=== PATIENT | female | born 1935 | race Caucasian/White ===

== ENCOUNTER 2017-02-22 15:01 | Inpatient (IN) | payer OTHER ==
--- NOTE | 2017-02-22 16:20 | PDOC ---
History of Present Illness <Tammy Tellez - Last Filed: 02/22/17 18:54> - General History Source: Patient Exam Limitations: No Limitations - History of Present Illness Initial Comments: 02/22/17 19:14 Patient is a 82 year old female with a pmhx of CHF who presents to the ED sent in by PCP for evaluation of heart failure. Patient was at her PCP office at a routine check up and her ECG showed Afib. Patient went into CHF exacerbation on Sunday and was diuresed at [facility] on Sunday. As per cardiology, the patient had an EF of 20% compared to EF of 50% in August. Pt also noted to be inrapid afib hat her doctors office to the 120s. the pt endorses feeling weakness, and endorse some chest pain earlier in the day that had resolved. pt denies any fever/chills, cough, leg edema, back pain, neck pain, headache <Juancarlos Kiran - Last Filed: 02/23/17 09:23> - General Chief Complaint: Congestive Heart Failure Stated Complaint: CONGESTIVE HEART FAILURE (PCP SENT) Time Seen by Provider: 02/22/17 15:33 Past History <Tammy Tellez - Last Filed: 02/22/17 18:54> - Past Medical History Anemia: Yes Asthma: Yes (BRONCHIAL) Cancer: No Cardiac Disorders: Yes (a-fIB) CVA: No COPD: Yes CHF: No Dementia: No Diabetes: No GI Disorders: Yes (IBS, PANCREAS CYSTS,) Disorders: No HTN: Yes Hypercholesterolemia: Yes Liver Disease: No Seizures: No Thyroid Disease: Yes (THYROID NODULES AND SHUTDOWN 2003) - Surgical History Abdominal Surgery: Yes (PARTIAL GASTRECTOMY) Appendectomy: No Cardiac Surgery: Yes (MV REPAIR, TRICUSPID VALVE REPAIR) Cholecystectomy: No Lung Surgery: No Neurologic Surgery: No Orthopedic Surgery: No - Immunization History Immunization Up to Date: Yes - Psycho/Social/Smoking Cessation Hx Anxiety: No Suicidal Ideation: No Smoking History: Never smoked Have you smoked in the past 12 months: No Information on smoking cessation initiated: No Hx Alcohol Use: No Drug/Substance Use Hx: No Substance Use Type: None Hx Substance Use Treatment: No <Juancarlos Kiran - Last Filed: 02/23/17 09:23> - Past Medical History Allergies/Adverse Reactions: Allergies Allergy/AdvReac Type Severity Reaction Status Date / Time levofloxacin [From Levaquin] Allergy Intermediate Hives Verified 02/22/17 15:15 shellfish derived Allergy Intermediate Hives Verified 02/22/17 15:15 Sulfa (Sulfonamide Allergy Intermediate Hives Verified 02/22/17 15:15 Antibiotics) Home Medications: Ambulatory Orders Albuterol Sulfate [Proair Hfa -] 2 inh PO BID 11/09/13 Cholecalciferol (Vitamin D3) [Vitamin D3] 1,000 unit PO DAILY 11/09/13 Fluticasone Propionate [Flovent Hfa] 110 mcg IH BID 11/09/13 Hypromellose 0.5% Opth Soln [Artificial Tears] 1 drop OU Q4H PRN #0 drops Apixaban [Eliquis] 5 mg PO BID 02/22/17 Cetirizine HCl [Zyrtec -] 10 mg PO DAILY 02/22/17 Levothyroxine [Synthroid -] 88 mcg PO ASDIR 02/22/17 Lipase/Protease/Amylase [Pancreaze Dr 2,600 Unit Cap] 1 each PO TIDCM 02/22/17 Metoprolol Succinate [Toprol Xl -] 50 mg PO BID 02/22/17 Rifaximin [Xifaxan] 550 mg PO BID 02/22/17 Acetaminophen [Tylenol -] 1,000 mg PO Q6H PRN 02/23/17 Loperamide HCl [Imodium -] 2 mg PO DAILY PRN 02/23/17 Review of Systems - Review of Systems Able to Perform ROS?: No Comments:: 02/22/17 19:15 CONSTITUTIONAL: No reported: Fever, Chills, Diaphoresis, Generalized Weakness, Malaise, Loss of Appetite HEENT: No reported: Rhinorrhea, Nasal Congestion, Throat Pain, Throat Swelling, Difficulty Swallowing, Mouth Swelling, Ear Pain, Eye Pain, Visual Changes CARDIOVASCULAR: No reported: Chest Pain, Syncope, Palpitations, Irregular Heart Rate, Lightheadedness, Peripheral Edema RESPIRATORY: +Shortness of Breath, SOB with Exertion, No reported: Cough, Orthopnea, Wheezing, Stridor, Hemoptysis GASTROINTESTINAL: No reported: Abdominal pain, Abdominal Distension, Nausea, Vomiting, Diarrhea, Constipation, Melena, Hematochezia GENITOURINARY: No reported: Dysuria, Frequency, Urgency, Hesitancy, Flank Pain, Genital Pain MUSCULOSKELETAL: No reported: Myalgia, Arthralgia, Joint Swelling, Back pain, Neck Pain SKIN: No reported: Rash, Itching, Pallor HEMEATOLOGIC/IMMUNOLOGIC: No reported: Easy Bleeding, Easy Bruising, Lymphadenopathy, Frequent infections ENDOCRINE: No reported: Unexplained Weight Gain, Unexplained Weight Loss, Heat Intolerance , Cold Intolerance NEUROLOGIC: No reported: Headache, Focal Weakness, Paresthesias, Vertigo, Lightheadedness, Unsteady Gait, Seizure, Mental Status Changes, Incontinence PSYCHIATRIC: No reported: Anxiety, Depression <Magno,Juancarlos - Last Filed: 02/23/17 09:23> *Physical Exam - Vital Signs Last Vital Signs Temp Pulse Resp BP Pulse Ox 98.6 F 112 H 20 118/55 100 02/22/17 15:16 02/22/17 15:16 02/22/17 15:16 02/22/17 15:16 02/22/17 15:16 <Tammy Tellez - Last Filed: 02/22/17 18:54> - Vital Signs Last Vital Signs Temp Pulse Resp BP Pulse Ox 98.6 F 112 H 20 118/55 100 02/22/17 15:16 02/22/17 15:16 02/22/17 15:16 02/22/17 15:16 02/22/17 15:16 - Physical Exam Comments: 02/22/17 19:16 GENERAL: The patient is awake, alert, and fully oriented, Nontoxic - in no acute distress. HEAD: Normocephalic, atraumatic. EYES: extraocular movements intact, sclera anicteric, conjunctiva clear. ENT: Normal voice, Moist mucous membranes. NECK: Normal range of motion, supple LUNGS: scant rales b/l HEART: irregularly irregular ABDOMEN: Soft, nontender, normoactive bowel sounds. No guarding, no rebound. . No CVA tenderness EXTREMITIES: Normal range of motion, no edema. No clubbing or cyanosis. No cords, erythema, or tenderness. NEUROLOGICAL: No facial assymetry, Normal speech, PSYCH: Normal mood, normal affect. SKIN: Warm, Dry, normal turgor, <Magno,Juancarlos - Last Filed: 02/23/17 09:23> Heart Score/ECG Review - ECG Impressions Comment:: 02/22/17 19:14 Twelve-lead EKG was performed and reviewed by me. Irregularily irregaular with pvcs left axis devatiion incomplege rbbb abnormal r wave progression <Juancarlos Kiran - Last Filed: 02/23/17 09:23> ED Treatment Course - LABORATORY CBC & Chemistry Diagram: 02/22/17 16:41 02/22/17 16:41 - ADDITIONAL ORDERS Additional order review: Laboratory Results 02/22/17 02/22/17 16:41 16:30 VBG pH 7.44 H POC VBG pCO2 36.1 L POC VBG pO2 55.7 H Mixed VBG HCO3 24.3 Sodium 139 Potassium 3.8 Chloride 103 Carbon Dioxide 25 Anion Gap 11 BUN 36 H D Creatinine 1.2 H Creat Clearance w eGFR 43.01 Random Glucose 105 D Calcium 9.5 Total Bilirubin 0.4 AST 35 D ALT 38 Alkaline Phosphatase 69 D Creatine Kinase 116 Troponin I 0.02 B-Natriuretic Peptide 4692.11 H Total Protein 7.2 Albumin 3.5 TSH 3.26 02/22/17 16:41 RBC 4.17 MCV 91.4 MCHC 33.7 RDW 13.6 D MPV 8.2 Neutrophils % 66.5 D Lymphocytes % 20.3 D Monocytes % 10.0 D Eosinophils % 2.6 D Basophils % 0.6 D - Medications Given in the ED: ED Medications Discontinued Medications Generic Name Dose Route Start Last Admin Trade Name Freq PRN Reason Stop Dose Admin Furosemide 40 mg 02/22/17 17:13 02/22/17 17:20 Lasix Injection - IVPB 02/22/17 17:14 40 mg ONCE ONE Administration Potassium Chloride 40 meq 02/22/17 17:42 02/22/17 18:29 K-Dur - PO 02/22/17 17:43 40 meq ONCE ONE Administration <Tammy Tellez - Last Filed: 02/22/17 18:54> - LABORATORY CBC & Chemistry Diagram: 02/22/17 16:41 02/23/17 05:58 <Juancarlos Kiran - Last Filed: 02/23/17 09:23> Medical Decision Making - Medical Decision Making 02/22/17 18:[address] Domínguez who accepted patient admission under Dr. Rocha' s service. <Tammy Tellez - Last Filed: 02/22/17 18:54> - Medical Decision Making 02/22/17 18:41 pt sent to the ED for evaluation of afib with rvr and worsening CHF with EF of 20% pt without complaints currently but did endorse complaitn of chest pain earlier today pts exam without acute findings pt evaluated by dr. van in ED requests admission for further managment of chf and afib case dw dr. clancy agree with admission to tele under dr kline service Case discussed in detail with admitting physician including history, physical exam and ancillary studies. Admitting physician has assumed care for the patient, will follow all pending diagnostics and will complete the evaluation and treatment. A portion of this note was documented by katia avila under my direction. I have reviewed the details of the note, within reason, and agree with the documentation with the following case summary and management plan written by me <Juancarlos Kiran - Last Filed: 02/23/17 09:23> *DC/Admit/Observation/Transfer <Tammy Tellez - Last Filed: 02/22/17 18:54> - Discharge Dispostion Admit: Yes <Juancarlos Kiran - Last Filed: 02/23/17 09:23> Diagnosis at time of Disposition: CHF (congestive heart failure) Qualifiers: Congestive heart failure type: unspecified congestive heart failure type Congestive heart failure chronicity: acute Qualified Code(s): I50.9 - Heart failure, unspecified Atrial fibrillation Qualifiers: Atrial fibrillation type: chronic Qualified Code(s): I48.2 - Chronic atrial fibrillation - Discharge Dispostion Condition at time of disposition: Stable - Referrals
[2017-02-22 16:41] LABS: VENOUS BLOOD GAS HCO3 24.3 meq/L (19-25)
[2017-02-22 16:44] LABS: VENOUS PH 7.44 (7.32-7.42)
[2017-02-22 16:46] LABS: BASOPHIL 0.6 % (0-2.0); EOSINOPHIL 2.6 % (0-4.5); MCH 30.8 pg (25.7-33.7); MCHC 33.7 g/dl (32.0-36.0); MEAN CELL VOLUME 91.4 fl (80-96); MEAN PLT VOLUME 8.2 fl (7.5-11.1); NEUTROPHILS 66.5 % (42.8-82.8); PLATELET COUNT 193 K/MM3 (134-434); RDW 13.6 % (11.6-15.6); WHITE BLOOD COUNT 8.2 K/mm3 (4.0-10.0)
--- NOTE | 2017-02-22 16:48 | CON.CARD ---
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 Plan for initial rate-control and ultimately rhythm control with amiodarone oral load and PADMINI-mediated cardioversion. - History Source History Provided By: Patient Limitations to Obtaining History: No Limitations - Past Medical History Cardio/Vascular: Yes: HTN, Other (s/p MVR) Endocrine: Yes: Other (thyroid nodules) - Alcohol/Substance Use Hx Alcohol Use: No - Smoking History Smoking history: Never smoked Have you smoked in the past 12 months: No Home Medications - Allergies Allergies/Adverse Reactions: Allergies Allergy/AdvReac Type Severity Reaction Status Date / Time levofloxacin [From Levaquin] Allergy Intermediate Hives Verified 02/22/17 15:15 shellfish derived Allergy Intermediate Hives Verified 02/22/17 15:15 Sulfa (Sulfonamide Allergy Intermediate Hives Verified 02/22/17 15:15 Antibiotics) - Home Medications Home Medications: Ambulatory Orders Albuterol Sulfate [Proair Hfa -] 2 inh PO BID 11/09/13 Aspirin Coated [Ecotrin -] 81 mg PO DAILY 11/09/13 Cholecalciferol (Vitamin D3) [Vitamin D3] 1,000 unit PO DAILY 11/09/13 Esomeprazole Mag Trihydrate [Nexium] 40 mg PO DAILY 11/09/13 Fluticasone Propionate [Flovent Hfa] 110 mcg IH BID 11/09/13 Mometasone Furoate [Nasonex] 1 - 2 inh NS DAILY 11/09/13 Vitamin B Complex [B Complex] 1 each PO DAILY 11/09/13 Amlodipine Besylate [Norvasc -] 10 mg PO DAILY #0 tablet 11/24/13 Guaifenesin [Robitussin -] 10 ml PO TID #0 cup 11/24/13 Hydrochlorothiazide [Hctz -] 12.5 mg PO DAILY #0 cap 11/24/13 Hypromellose 0.5% Opth Soln [Artificial Tears] 1 drop OU Q4H PRN #0 drops Levothyroxine [Synthroid -] 88 mcg PO [id number]@0700 #0 tablet 11/24/13 Nebivolol [Bystolic -] 10 mg PO HS #0 tab 11/24/13 Review of Systems - Review of Systems Constitutional: reports: Other (Fatigue) Cardiovascular: reports: Palpitations, Shortness of Breath Vital Signs: Vital Signs Temperature 98.6 F 02/22/17 15:16 Pulse Rate 112 H 02/22/17 15:16 Respiratory Rate 20 02/22/17 15:16 Blood Pressure 118/55 02/22/17 15:16 O2 Sat by Pulse Oximetry (%) 100 02/22/17 15:16 Constitutional: Yes: No Distress, Calm Neck: Yes: Supple Respiratory: Yes: Regular, Diminished, On Nasal O2 Gastrointestinal: Yes: Normal Bowel Sounds, Soft Cardiovascular: Yes: Pulse Irregular JVD: No Carotid Bruit: No Heart Sounds: Yes: S1, S2 Murmur: Yes: Systolic Murmur, Grade 1 Edema: No - Other Data Afib @ 80 PVC Ejection Fraction %: LVEF < 40 % Imaging - Results Chest X-ray: Pending Problem List - Problems (1) Persistent atrial fibrillation Code(s): I48.1 - PERSISTENT ATRIAL FIBRILLATION (2) Acute on chronic systolic (congestive) heart failure Code(s): I50.23 - ACUTE ON CHRONIC SYSTOLIC (CONGESTIVE) HEART FAILURE (3) Cardiomyopathy Code(s): I42.9 - CARDIOMYOPATHY, UNSPECIFIED Qualifiers: Cardiomyopathy type: unspecified Qualified Code(s): I42.9 - Cardiomyopathy, unspecified (4) Hypertensive cardiomyopathy Code(s): I11.9 - HYPERTENSIVE HEART DISEASE WITHOUT HEART FAILURE I43 - CARDIOMYOPATHY IN DISEASES CLASSIFIED ELSEWHERE Qualifiers: Heart failure presence: with heart failure Qualified Code(s): I11.0 - Hypertensive heart disease with heart failure; I43 - Cardiomyopathy in diseases classified elsewhere (5) Hypothyroidism Code(s): E03.9 - HYPOTHYROIDISM, UNSPECIFIED Qualifiers: Hypothyroidism type: unspecified Qualified Code(s): E03.9 - Hypothyroidism, unspecified (6) Asthma Code(s): J45.909 - UNSPECIFIED ASTHMA, UNCOMPLICATED Qualifiers: Asthma severity: mild intermittent (7) S/P mitral valve repair Code(s): Z98.890 - OTHER SPECIFIED POSTPROCEDURAL STATES (8) S/P tricuspid valve repair Code(s): Z98.890 - OTHER SPECIFIED POSTPROCEDURAL STATES (9) Premature ventricular contraction Code(s): I49.3 - VENTRICULAR PREMATURE DEPOLARIZATION Assessment/Plan 1. Symptomatic persistent atrial fibrillation 2. Premature ventricular contraction 3. Newly diagnosed cardiomyopathy LVEF 25-30% suspect tachycardia-mediated with acute on chronic failure 4. HTN/HCVD 5. Hypothyroidism 6. Asthma P:1. Diuresis with monitor diuretic response, renal fxn and electrolytes 2. Continue Toprol XL 50 bid, start losartan 25 qd and Aldactone 25 qd with uptitration as tolerated, start oral amiodarone load 3. Started on Eliquis 5 bid, plan for PADMINI-mediated DCCV Sunday 4. Thank you for consultative opportunity
[2017-02-22 17:09] LABS: ALBUMIN 3.5 g/dl (3.4-5.0); ANION GAP 11 (8-16); BILIRUBIN,TOTAL 0.4 mg/dL (0.2-1.0); CALCIUM 9.5 mg/dL (8.5-10.1); CO2 25 mmol/L (21-32); CREATININE 1.2 mg/dL (0.55-1.02); GLUCOSE,RANDOM 105 mg/dL (74-106); SGPT/ALT 38 U/L (12-78); TOT PROT 7.2 g/dl (6.4-8.2)
[2017-02-22] MEDS: SPIRONOLACTONE 25 MG TABLET (FP) PO SCH (17:10)
[2017-02-22] MEDS ORDERED: FUROSEMIDE 40 MG/4 ML INJECTABLE VIAL IVPB ONE (17:13)
[2017-02-22 17:17] LABS: ALK PHOS 69 U/L (45-117); SGOT/AST 35 U/L (15-37); THYROID STIMULATING HORMONE 3.26 uIU/ml (0.358-3.74); TROPONIN I 0.02 ng/ml (0.00-0.05)
[2017-02-22] MEDS ORDERED: FUROSEMIDE 40 MG/4 ML INJECTABLE VIAL ONE (17:40)
[2017-02-22] MEDS ORDERED: POTASSIUM CHLORIDE TABS 20 MEQ TABLET.ER (FP) PO ONE ×2 (17:42→18:12)
[2017-02-22] MEDS: AMIODARONE HCL 200 MG TABLET (FP) PO SCH (21:42)
[2017-02-22] MEDS: APIXABAN 5 MG TABLET PO SCH (21:42)
[2017-02-22] MEDS: METOPROLOL SUCCINATE 50 MG TAB.SR.24H (FP) PO SCH (21:42)
[2017-02-22] MEDS: ACETAMINOPHEN 325 MG TABLET (FP) PO PRN (23:36)
[2017-02-23 00:33] VITALS: BMI 18.8
[2017-02-23] MEDS: LEVOTHYROXINE NA 88 MCG TABLET (FP) PO SCH (06:21)
[2017-02-23 07:48] LABS: ANION GAP 11 (8-16); CALCIUM 9.4 mg/dL (8.5-10.1); CO2 31 mmol/L (21-32); CREATININE 1.2 mg/dL (0.55-1.02); GLUCOSE,RANDOM 92 mg/dL (74-106); MAGNESIUM 1.8 mg/dL (1.8-2.4)
[2017-02-23 07:50] LABS: TROPONIN I < 0.02 ng/ml (0.00-0.05)
[2017-02-23] MEDS: AMIODARONE HCL 200 MG TABLET (FP) PO SCH ×2 (10:30→21:29)
[2017-02-23] MEDS: LOSARTAN POTASSIUM 25 MG TABLET PO SCH (10:31)
[2017-02-23] MEDS: SPIRONOLACTONE 25 MG TABLET (FP) PO SCH (10:31)
[2017-02-23] MEDS: METOPROLOL SUCCINATE 50 MG TAB.SR.24H (FP) PO SCH ×3 (10:31→21:29)
[2017-02-23] MEDS: APIXABAN 5 MG TABLET PO SCH ×2 (10:31→21:29)
--- NOTE | 2017-02-23 11:16 | PN ---
Progress Note, Physician History of Present Illness: Dyspnea improving with diuresis, still with rapid afib upon exertion. - Current Medication List Current Medications: Active Medications Acetaminophen (Tylenol -) 650 mg PO Q6H PRN PRN Reason: PAIN Last Admin: 02/22/17 23:36 Dose: 650 mg Albuterol Sulfate (Ventolin Hfa Inhaler -) 2 puff IH Q6HPO PRN PRN Reason: ASTHMA Amiodarone HCl (Cordarone -) 200 mg PO BID [facility] Last Admin: 02/23/17 10:30 Dose: 200 mg Apixaban (Eliquis -) 5 mg PO BID [facility] Last Admin: 02/23/17 10:31 Dose: 5 mg Levothyroxine Sodium (Synthroid -) 88 mcg PO DAILY@0700 [facility] Last Admin: 02/23/17 06:21 Dose: 88 mcg Losartan Potassium (Cozaar -) 25 mg PO DAILY [facility] Last Admin: 02/23/17 10:31 Dose: 25 mg Metoprolol Succinate (Toprol Xl -) 50 mg PO BID [facility] Last Admin: 02/23/17 10:31 Dose: 50 mg Spironolactone (Aldactone -) 25 mg PO DAILY [facility] Last Admin: 02/23/17 10:31 Dose: 25 mg - Objective Vital Signs: Vital Signs Temperature 97.9 F 02/23/17 10:00 Pulse Rate 91 H 02/23/17 10:00 Respiratory Rate 18 02/23/17 10:00 Blood Pressure 115/58 02/23/17 10:00 O2 Sat by Pulse Oximetry (%) 95 02/23/17 09:00 Constitutional: Yes: No Distress, Calm, Thin Neck: Yes: Supple Cardiovascular: Yes: Tachycardia, Pulse Irregular, Murmur (2/6 SM) Respiratory: Yes: Regular, Diminished Gastrointestinal: Yes: Normal Bowel Sounds, Soft Edema: No Labs: CBC, BMP 02/23/17 05:58 - ....Imaging EKG: Report Reviewed (Tele: Rapid afib) Problem List - Problems (1) Persistent atrial fibrillation Code(s): I48.1 - PERSISTENT ATRIAL FIBRILLATION (2) Acute on chronic systolic (congestive) heart failure Code(s): I50.23 - ACUTE ON CHRONIC SYSTOLIC (CONGESTIVE) HEART FAILURE (3) Cardiomyopathy Code(s): I42.9 - CARDIOMYOPATHY, UNSPECIFIED Qualifiers: Cardiomyopathy type: unspecified Qualified Code(s): I42.9 - Cardiomyopathy, unspecified (4) Hypertensive cardiomyopathy Code(s): I11.9 - HYPERTENSIVE HEART DISEASE WITHOUT HEART FAILURE I43 - CARDIOMYOPATHY IN DISEASES CLASSIFIED ELSEWHERE Qualifiers: Heart failure presence: with heart failure Qualified Code(s): I11.0 - Hypertensive heart disease with heart failure; I43 - Cardiomyopathy in diseases classified elsewhere (5) Hypothyroidism Code(s): E03.9 - HYPOTHYROIDISM, UNSPECIFIED Qualifiers: Hypothyroidism type: unspecified Qualified Code(s): E03.9 - Hypothyroidism, unspecified (6) Asthma Code(s): J45.909 - UNSPECIFIED ASTHMA, UNCOMPLICATED Qualifiers: Asthma severity: mild intermittent (7) S/P mitral valve repair Code(s): Z98.890 - OTHER SPECIFIED POSTPROCEDURAL STATES (8) S/P tricuspid valve repair Code(s): Z98.890 - OTHER SPECIFIED POSTPROCEDURAL STATES (9) Premature ventricular contraction Code(s): I49.3 - VENTRICULAR PREMATURE DEPOLARIZATION Assessment/Plan 1. Symptomatic persistent atrial fibrillation with rapid ventricular response 2. 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 Premature ventricular contraction 4. Newly diagnosed cardiomyopathy LVEF 25-30% suspect tachycardia-mediated with acute on chronic failure 4. HTN/HCVD 5. Hypothyroidism 6. Asthma P:1. Continue Aldactone 25 qd with monitor diuretic response, renal fxn and electrolytes 2. Increase Toprol XL 50 tid and losartan 25 qd with uptitration as tolerated, continue oral amiodarone load 3. Maintain on Eliquis 5 bid, plan for PADMINI-mediated DCCV Sunday
--- NOTE | 2017-02-23 13:17 | HP ---
Admitting History and Physical - Primary Care Physician PCP: Melissa Roberts - Admission Chief Complaint: The doctor told me to come in History of Present Illness: Mrs Duran is a very pleasant 81 year old female who comes in with shortness of breath. She says this began a few weeks ago. She started having dyspnea on exertion. She was seen by cardiology and was being worked up, however over the weekend she became acutely short of breath and presented to [facility]. There she was found to have fluid overload with pleural effusion. She was diuresed with IV lasix and improved. She did not require thoracentesis. She did not have an ECHO there. She was released and followed up with her PCP. She was found to be in atrial fibrillation and sent in for further evaluation. Currently she is feeling fine. She denies fevers, chills, lightheadedness, passing out, chest pain, nausea, vomiting, diarrhea, swelling, or any other concern. History Source: Patient Limitations to Obtaining History: No Limitations - Past Medical History Cardiovascular: Yes: HTN, Other (s/p MVR) Gastrointestinal: Yes: Irritable Bowel Disease ...: No Endocrine: Yes: Hypothyroidism, Other (thyroid nodules) - Past Surgical History Past Surgical History: Yes: None (Mitral valve repair) - Advance Directives Advance Directives: Yes: Health Care Proxy - Smoking History Smoking history: Never smoked Have you smoked in the past 12 months: No - Alcohol/Substance Use Hx Alcohol Use: No History of Substance Use: reports: None - Social History Usual Living Arrangement: Yes: With Spouse ADL: Independent History of Recent Travel: No Home Medications - Allergies Allergies/Adverse Reactions: Allergies Allergy/AdvReac Type Severity Reaction Status Date / Time levofloxacin [From Levaquin] Allergy Intermediate Hives Verified 02/22/17 15:15 shellfish derived Allergy Intermediate Hives Verified 02/22/17 15:15 Sulfa (Sulfonamide Allergy Intermediate Hives Verified 02/22/17 15:15 Antibiotics) - Home Medications Home Medications: Ambulatory Orders Albuterol Sulfate [Proair Hfa -] 2 inh PO BID 11/09/13 Cholecalciferol (Vitamin D3) [Vitamin D3] 1,000 unit PO DAILY 11/09/13 Fluticasone Propionate [Flovent Hfa] 110 mcg IH BID 11/09/13 Hypromellose 0.5% Opth Soln [Artificial Tears] 1 drop OU Q4H PRN #0 drops Apixaban [Eliquis] 5 mg PO BID 02/22/17 Cetirizine HCl [Zyrtec -] 10 mg PO DAILY 02/22/17 Levothyroxine [Synthroid -] 88 mcg PO ASDIR 02/22/17 Lipase/Protease/Amylase [Pancreolvin Dr 2,600 Unit Cap] 1 each PO TIDCM 02/22/17 Metoprolol Succinate [Toprol Xl -] 50 mg PO BID 02/22/17 Rifaximin [Xifaxan] 550 mg PO BID 02/22/17 Acetaminophen [Tylenol -] 1,000 mg PO Q6H PRN 02/23/17 Loperamide HCl [Imodium -] 2 mg PO DAILY PRN 02/23/17 Family Disease History - Family Disease History Family History: Unremarkable Review of Systems Findings/Remarks: Full review of systems obtained. As per HPI and otherwise negative Physical Examination Vital Signs: Vital Signs Temperature 97.9 F 02/23/17 10:00 Pulse Rate 91 H 02/23/17 10:00 Respiratory Rate 18 02/23/17 10:00 Blood Pressure 115/58 02/23/17 10:00 O2 Sat by Pulse Oximetry (%) 95 02/23/17 09:00 Constitutional: Yes: Well Nourished, No Distress, Calm Eyes: Yes: Conjunctiva Clear, EOM Intact, PERRL Cardiovascular: Yes: Tachycardia, Pulse Irregular. No: Gallop, Murmur, Rub Respiratory: Yes: Regular, CTA Bilaterally. No: Rales, Rhonchi, Wheezes Gastrointestinal: Yes: Normal Bowel Sounds, Soft. No: Distention, Tenderness Extremities: Yes: WNL Edema: No Labs: CBC, BMP 02/23/17 05:58 Imaging - Results Chest X-ray: Report Reviewed, Image Reviewed Problem List - Problems (1) Persistent atrial fibrillation Assessment/Plan: -patient presents with afib with rvr -case d/w cardiology -metoprolol increased -loading amiodarone -anticoagulation with eliquis -plan for PADMINI/DCCV on Sunday Code(s): I48.1 - PERSISTENT ATRIAL FIBRILLATION (2) CHF (congestive heart failure) Assessment/Plan: -continue aldactone Code(s): I50.9 - HEART FAILURE, UNSPECIFIED Qualifiers: Congestive heart failure type: unspecified congestive heart failure type Congestive heart failure chronicity: chronic Qualified Code(s): I50.9 - Heart failure, unspecified (3) Hypothyroidism Assessment/Plan: -continue synthroid Code(s): E03.9 - HYPOTHYROIDISM, UNSPECIFIED Qualifiers: Hypothyroidism type: unspecified Qualified Code(s): E03.9 - Hypothyroidism, unspecified (4) HTN (hypertension) Assessment/Plan: -continue cozaar and aldactone -toprol xl increased for rate control -well controlled Code(s): I10 - ESSENTIAL (PRIMARY) HYPERTENSION (5) S/P mitral valve repair Assessment/Plan: -cardiology following Code(s): Z98.890 - OTHER SPECIFIED POSTPROCEDURAL STATES (6) IBS (irritable bowel syndrome) Assessment/Plan: -continue rifaximin and prn imodium -continue pancreatic enzymes with meals Code(s): K58.9 - IRRITABLE BOWEL SYNDROME WITHOUT DIARRHEA
[2017-02-23] MEDS ORDERED: ARTIFICIAL TEARS (POLYVINYL ALCOHOL 1.4%) OPTH DROPS OU PRN (14:00)
[2017-02-23] MEDS: PROTEASE PO SCH (15:18)
[2017-02-23] MEDS: [UNRECOGNIZED DRUG - OTHER] PO SCH (15:18)
[2017-02-23] MEDS: AMYLASE PO SCH (15:18)
[2017-02-23] MEDS: LIPASE PO SCH (15:18)
--- NOTE | 2017-02-23 17:22 | EKG ---
Test Reason : Blood Pressure : / mmHG Vent. Rate : 080 BPM Atrial Rate : 357 BPM P-R Int : 000 ms QRS Dur : 100 ms QT Int : 384 ms P-R-T Axes : 000 -38 -53 degrees QTc Int : 442 ms ATRIAL FIBRILLATION WITH PREMATURE VENTRICULAR OR ABERRANTLY CONDUCTED COMPLEXES LEFT AXIS DEVIATION INCOMPLETE RIGHT BUNDLE BRANCH BLOCK MODERATE VOLTAGE CRITERIA FOR LVH, MAY BE NORMAL VARIANT ANTEROSEPTAL INFARCT , AGE UNDETERMINED ABNORMAL ECG WHEN COMPARED WITH ECG OF 18-NOV-2013 13:14, ATRIAL FIBRILLATION HAS REPLACED SINUS RHYTHM INCOMPLETE RIGHT BUNDLE BRANCH BLOCK IS NOW PRESENT ANTEROSEPTAL INFARCT IS NOW PRESENT Confirmed by MD DMITRIY, DEVORA ([id number]) on 02/23/2017 5:21:36 PM Referred By: Confirmed By:DEVORA IZAGUIRRE MD
[2017-02-23] MEDS ORDERED: PT OWN MED DRAWER 7, Y5N ONE (21:19)
[2017-02-23] MEDS: MOMETASONE FUROATE 220 MCG/IH INHALER IH SCH (21:29)
[2017-02-23] MEDS: ALBUTEROL SO4 6.7 GM HFA INHALER IH PRN (21:29)
[2017-02-23] MEDS: RIFAXIMIN 550 MG TABLET (UD) PO SCH (21:29)
[2017-02-23] MEDS: ACETAMINOPHEN 325 MG TABLET (FP) PO PRN (21:39)
[2017-02-24] MEDS: LEVOTHYROXINE NA 88 MCG TABLET (FP) PO SCH (06:26)
--- NOTE | 2017-02-24 06:58 | PN ---
Progress Note (short form) - Note Progress Note: Chief Complaint: Events noted, notes reviewed. denies any chest pain, dyspnea improved, atrial fibrillation persists with slow ventricular response during sleep History of Present Illness: Seen and examined on telemetry. Events noted, notes reviewed. denies any chest pain, dyspnea improved, atrial fibrillation persists with slow ventricular response during sleep Echocardiography performed revealed severe LV systolic dysfunction, Mitral annular ring with mild MR, Tricuspid annular ring with mild TR Continue Toprol XL and Amiodarone and plan to proceed with PADMINI guided cardioversion since duration of AF is not clear and A/C was initiated last week - Current Medication List Current Medications Acetaminophen (Tylenol -) 650 mg PO Q6H PRN PRN Reason: PAIN Last Admin: 02/23/17 21:39 Dose: 650 mg Albuterol Sulfate (Ventolin Hfa Inhaler -) 2 puff IH Q6HPO PRN PRN Reason: ASTHMA Last Admin: 02/23/17 21:29 Dose: 2 puff Amiodarone HCl (Cordarone -) 200 mg PO BID [facility] Last Admin: 02/23/17 21:29 Dose: 200 mg Apixaban (Eliquis -) 5 mg PO BID [facility] Last Admin: 02/23/17 21:29 Dose: 5 mg Artificial Tears (Artificial Tears) 1 drop OU Q4H PRN PRN Reason: DRY EYES Last Admin: 02/23/17 21:39 Dose: 1 drop Cholecalciferol (Vitamin D3 -) 1,000 unit PO DAILY [facility] Levothyroxine Sodium (Synthroid -) 88 mcg PO DAILY@0700 [facility] Last Admin: 02/24/17 06:26 Dose: 88 mcg Loperamide HCl (Imodium -) 2 mg PO DAILY PRN PRN Reason: DIARRHEA Loratadine (Claritin -) 10 mg PO DAILY [facility] Losartan Potassium (Cozaar -) 25 mg PO DAILY [facility] Last Admin: 02/23/17 10:31 Dose: 25 mg Metoprolol Succinate (Toprol Xl -) 50 mg PO TID [facility] Last Admin: 02/23/17 21:29 Dose: 50 mg Mometasone Furoate (Asmanex 220mcg -) 1 puff IH HS [facility] Last Admin: 02/23/17 21:29 Dose: 1 puff Non-Formulary Medication (Lipase/Protease/Amylase [Pancreaze Dr 2,600 Unit Cap] ) 1 each PO TIDCM [facility] Rifaximin (Xifaxan -) 550 mg PO BID [facility] Last Admin: 02/23/17 21:29 Dose: 550 mg Spironolactone (Aldactone -) 25 mg PO DAILY [facility] Last Admin: 02/23/17 10:31 Dose: 25 mg Review of Systems Cardiovascular: As noted above Respiratory: denies: Cough or Sputum Production Gastrointestinal: denies: Nausea, Vomiting, Diarrhea, Constipation or Abdominal Discomfort Musculoskeletal: No Symptoms Reported Endocrine: No Symptoms Reported - Objective Vital Signs: Last Vital Signs Temp Pulse Resp BP Pulse Ox 97.9 F 58 L 18 106/60 96 02/24/17 06:00 02/24/17 06:00 02/24/17 06:00 02/24/17 06:00 02/23/17 22:00 Constitutional: No Distress, Calm, Thin Neck: Supple Negative JVD Cardiovascular: S1 S2 Irregularly Irregular Grade 2/6 Murmur Respiratory: Diminished at the Bases Gastrointestinal: Soft Benign Normal Bowel Sounds Ext: No Edema Labs: Troponin, BNP 02/23/17 05:58 Troponin I < 0.02 Hepatic Panel Total Bilirubin 0.4 mg/dL (0.2-1.0) 02/22/17 16:41 AST 35 U/L (15-37) D 02/22/17 16:41 ALT 38 U/L (12-78) 02/22/17 16:41 Alkaline Phosphatase 69 U/L (45-117) D 02/22/17 16:41 Albumin 3.5 g/dl (3.4-5.0) 02/22/17 16:41 Assessment/Plan ASSESSMENT: 1. Persistent atrial fibrillation with rapid ventricular response, duration of which is unclear [id number] score of 5 on NOAC's 2. 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 HTN 5. Hypothyroidism 6. Asthma PLAN: 1. Continue Aldactone with close monitoring of renal function 2. Continue Toprol XL 3. Continue Losartan 4. Continue Amiodarone 5. Continue Eliquis considering the above noted [id number] score of 5 6. Plan for PADMINI guided DCCV Sunday, discussed in detail with the patient, risk, benefits and alternatives were reviewed Linh Barney M.D.
[2017-02-24] MEDS: METOPROLOL SUCCINATE 50 MG TAB.SR.24H (FP) PO SCH ×3 (07:30→21:42)
[2017-02-24 07:55] LABS: BASOPHIL 0.5 % (0-2.0); EOSINOPHIL 8.1 % (0-4.5); MCH 30.7 pg (25.7-33.7); MCHC 33.4 g/dl (32.0-36.0); MEAN CELL VOLUME 91.8 fl (80-96); MEAN PLT VOLUME 8.4 fl (7.5-11.1); NEUTROPHILS 52.2 % (42.8-82.8); PLATELET COUNT 212 K/MM3 (134-434); RDW 13.2 % (11.6-15.6); WHITE BLOOD COUNT 8.3 K/mm3 (4.0-10.0)
[2017-02-24] MEDS: LIPASE PO SCH ×3 (08:16→17:37)
[2017-02-24] MEDS: AMYLASE PO SCH ×3 (08:16→17:37)
[2017-02-24] MEDS: PROTEASE PO SCH ×3 (08:16→17:37)
[2017-02-24] MEDS: [UNRECOGNIZED DRUG - OTHER] PO SCH ×3 (08:16→17:37)
[2017-02-24 08:20] LABS: ALBUMIN 3.7 g/dl (3.4-5.0); ANION GAP 11 (8-16); CALCIUM 9.2 mg/dL (8.5-10.1); CO2 31 mmol/L (21-32); GLUCOSE,RANDOM 130 mg/dL (74-106); SGOT/AST 31 U/L (15-37)
[2017-02-24 08:23] LABS: ALK PHOS 77 U/L (45-117); BILIRUBIN,TOTAL 0.5 mg/dL (0.2-1.0); CREATININE 1.3 mg/dL (0.55-1.02); PHOSPHOROUS 3.6 mg/dL (2.5-4.9); SGPT/ALT 36 U/L (12-78); TOT PROT 7.7 g/dl (6.4-8.2)
[2017-02-24] MEDS ORDERED: PT OWN MED DRAWER 7, Y5N ONE ×4 (09:30→21:38)
--- NOTE | 2017-02-24 09:35 | PN ---
Progress Note (short form) - Note Progress Note: PATIENT ADMITTED WITH AFIB / RVR ,> HY OF MVP S/P MV REPAIR. SEEN BY CARDIOLOGY <> PLACED ON AMIODARONE <>TOPROL INCREASED FOR RATE CONTROL. Selected Entries 02/24/17 06:00 Temperature 97.9 F Pulse Rate 58 L Respiratory 18 Rate Blood Pressure 106/60 Weight 101 lb Laboratory Tests 02/23/17 02/24/17 02/24/17 05:58 06:40 06:40 WBC 8.3 RBC 4.38 Hgb 13.5 Hct 40.3 Plt Count 212 Sodium 135 L Potassium 4.2 Chloride 93 L Carbon Dioxide 31 Anion Gap 11 BUN 42 H Creatinine 1.3 H Random Glucose 130 H D Calcium 9.2 Phosphorus 3.6 Magnesium 2.0 Total Bilirubin 0.5 D AST 31 ALT 36 Alkaline Phosphatase 77 Creatine Kinase 110 Troponin I < 0.02 Total Protein 7.7 Albumin 3.7 P/E <> AWAKE / ALERT HEENT <> NECK SUPPLE / CAROTIDS 2 + COR <> S 1 S 2 NO M / NO GALLOPS CHEST <> FEW SCATTERED RHONCHI ABD <> SOFT / NONTENDER / NO HSM EXT <> NO CALF TENDERNESS/ IMP : AFIB RVR MVP / S/P MVR <> ANNULOPLASTY RING. HTN DILATED CARDIOMYOPATHY HYPOTHYROIDISM PLAN : PADMINI WITH CARDIOVERSION PER DR MCFARLAND. CONTINUE SAME CARDIAC MEDS. ELIQUIS FOR A/C CONTINUE CORDARONE CONTINUE TOPROL FOR RATE CONTROL .
[2017-02-24] MEDS: SPIRONOLACTONE 25 MG TABLET (FP) PO SCH (09:51)
[2017-02-24] MEDS: APIXABAN 5 MG TABLET PO SCH ×2 (09:53→21:42)
[2017-02-24] MEDS: RIFAXIMIN 550 MG TABLET (UD) PO SCH ×2 (09:53→21:42)
[2017-02-24] MEDS: LORATADINE 10 MG TABLET PO SCH (09:53)
[2017-02-24] MEDS: AMIODARONE HCL 200 MG TABLET (FP) PO SCH ×2 (09:53→21:42)
[2017-02-24] MEDS: CHOLECALCIFEROL (VITAMIN D3) 1,000 UNIT TABLET (FP) PO SCH (09:53)
[2017-02-24] MEDS: LOSARTAN POTASSIUM 25 MG TABLET PO SCH (09:53)
[2017-02-24] MEDS: ALBUTEROL SO4 6.7 GM HFA INHALER IH PRN (09:54)
[2017-02-24] MEDS: MOMETASONE FUROATE 220 MCG/IH INHALER IH SCH (21:44)
[2017-02-25] MEDS: METOPROLOL SUCCINATE 50 MG TAB.SR.24H (FP) PO SCH ×3 (06:04→21:46)
[2017-02-25] MEDS: LEVOTHYROXINE NA 88 MCG TABLET (FP) PO SCH (06:05)
--- NOTE | 2017-02-25 07:40 | PN ---
Progress Note (short form) - Note Progress Note: PATIENT CLAIMS SHE FEELS IMPROVED. SHE DENIES ANY CP / SOB / PALPITATIONS. HY OF AFIB WITH RVR . HR CONTROLLED WITH AMIODARONE & INCREASING DOSE OF TOPROL. Selected Entries Selected Entries 02/25/17 02/25/17 05:51 06:00 Temperature 97.9 F Pulse Rate 62 Respiratory 18 Rate Blood Pressure 121/49 Weight 101 lb Laboratory Tests 02/23/17 02/24/17 02/24/17 05:58 06:40 06:40 WBC 8.3 RBC 4.38 Hgb 13.5 Hct 40.3 Plt Count 212 Sodium 135 L Potassium 4.2 Chloride 93 L Carbon Dioxide 31 Anion Gap 11 BUN 42 H Creatinine 1.3 H Random Glucose 130 H D Calcium 9.2 Phosphorus 3.6 Magnesium 2.0 Total Bilirubin 0.5 D AST 31 ALT 36 Alkaline Phosphatase 77 Creatine Kinase 110 Troponin I < 0.02 Total Protein 7.7 Albumin 3.7 P/E <> AWAKE / ALERT / IN NO DISTRESS. HEENT <> NECK SUPPLE / CAROTIDS 2 + / NO BRUITS. COR <> S 1 S 2 NO M / NO GALLOPS / NO RUBS CHEST <> NO RHONCHI / NO CREPS. ABD <> SOFT / NONTENDER / NO HSM EXT <> NO CALF TENDERNESS/ IMP : AFIB RVR MVP / S/P MVR <> ANNULOPLASTY RING. HTN DILATED CARDIOMYOPATHY HYPOTHYROIDISM PLAN : CONTINUE SAME MEDS. FOLLOW LABS PENDING. PADMINI WITH CARDIOVERSION IN AM PER CARDIOLOGY.
--- NOTE | 2017-02-25 07:51 | PN ---
Progress Note (short form) - Note Progress Note: Chief Complaint: Events noted, notes reviewed. denies any chest pain, dyspnea resolved, atrial fibrillation persists rate controlled with slow ventricular response during sleep History of Present Illness: Seen and examined on telemetry. Events noted, notes reviewed. denies any chest pain, dyspnea resolved, atrial fibrillation persists rate controlled with slow ventricular response during sleep Echocardiography performed in our office revealed severe LV systolic dysfunction, Mitral annular ring with mild MR, Tricuspid annular ring with mild TR As outlined in yesterday's note to continue Toprol XL and Amiodarone and plan to proceed with PADMINI guided cardioversion since duration of AF is not clear and A /C was initiated last week - Current Medication List Current Medications Acetaminophen (Tylenol -) 650 mg PO Q6H PRN PRN Reason: PAIN Last Admin: 02/23/17 21:39 Dose: 650 mg Albuterol Sulfate (Ventolin Hfa Inhaler -) 2 puff IH Q6HPO PRN PRN Reason: ASTHMA Last Admin: 02/24/17 09:54 Dose: 2 puff Amiodarone HCl (Cordarone -) 200 mg PO BID [facility] Last Admin: 02/24/17 21:42 Dose: 200 mg Apixaban (Eliquis -) 5 mg PO BID [facility] Last Admin: 02/24/17 21:42 Dose: 5 mg Artificial Tears (Artificial Tears) 1 drop OU Q4H PRN PRN Reason: DRY EYES Last Admin: 02/23/17 21:39 Dose: 1 drop Cholecalciferol (Vitamin D3 -) 1,000 unit PO DAILY [facility] Last Admin: 02/24/17 09:53 Dose: 1,000 unit Levothyroxine Sodium (Synthroid -) 88 mcg PO DAILY@0700 [facility] Last Admin: 02/25/17 06:05 Dose: 88 mcg Loperamide HCl (Imodium -) 2 mg PO DAILY PRN PRN Reason: DIARRHEA Loratadine (Claritin -) 10 mg PO DAILY [facility] Last Admin: 02/24/17 09:53 Dose: 10 mg Losartan Potassium (Cozaar -) 25 mg PO DAILY [facility] Last Admin: 02/24/17 09:53 Dose: 25 mg Metoprolol Succinate (Toprol Xl -) 50 mg PO TID [facility] Last Admin: 02/25/17 06:04 Dose: 50 mg Mometasone Furoate (Asmanex 220mcg -) 1 puff IH HS [facility] Last Admin: 02/24/17 21:44 Dose: 1 puff Non-Formulary Medication (Lipase/Protease/Amylase [Pancreaze Dr 2,600 Unit Cap] ) 1 each PO TIDCM [facility] Last Admin: 02/24/17 17:37 Dose: 1 each Rifaximin (Xifaxan -) 550 mg PO BID [facility] Last Admin: 02/24/17 21:42 Dose: 550 mg Spironolactone (Aldactone -) 25 mg PO DAILY [facility] Last Admin: 02/24/17 09:51 Dose: 25 mg Review of Systems Cardiovascular: As noted above Respiratory: denies: Cough or Sputum Production Gastrointestinal: denies: Nausea, Vomiting, Diarrhea, Constipation or Abdominal Discomfort Musculoskeletal: No Symptoms Reported Endocrine: No Symptoms Reported - Objective Vital Signs: Last Vital Signs Temp Pulse Resp BP Pulse Ox 97.9 F 62 18 121/49 98 02/25/17 05:51 02/25/17 05:51 02/25/17 05:51 02/25/17 05:51 02/24/17 21:00 Constitutional: No Distress, Calm, Thin Neck: Supple Negative JVD Cardiovascular: S1 S2 Irregularly Irregular Grade 2/6 Murmur Respiratory: Clear to A&P Bilaterally Gastrointestinal: Soft Benign Normal Bowel Sounds Ext: No Edema Labs: AM labs pending Hepatic Panel Total Bilirubin 0.5 mg/dL (0.2-1.0) D 02/24/17 06:40 AST 31 U/L (15-37) 02/24/17 06:40 ALT 36 U/L (12-78) 02/24/17 06:40 Alkaline Phosphatase 77 U/L (45-117) 02/24/17 06:40 Albumin 3.7 g/dl (3.4-5.0) 02/24/17 06:40 Assessment/Plan ASSESSMENT: 1. Persistent atrial fibrillation, duration of which is unclear [id number] score of 5 on NOAC's 2. 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 HTN 5. Hypothyroidism 6. Asthma PLAN: 1. Continue Aldactone with close monitoring of renal function 2. Continue Toprol XL, dose probably need to be decreased post cardioversion 3. Continue Losartan 4. Continue Amiodarone 5. Continue Eliquis considering the above noted [id number] score of 5, therapy should be continued indefinitely unless it is absolutely contraindicated 6. Plan for PADMINI guided DCCV Sunday, as outlined discussed in detail with the patient, risk, benefits and alternatives were reviewed (above in addition was reviewed with the her daughter Pamela via telephone) Linh Barney M.D.
[2017-02-25 07:56] LABS: BASOPHIL 0.5 % (0-2.0); EOSINOPHIL 6.8 % (0-4.5); MCH 30.7 pg (25.7-33.7); MCHC 33.6 g/dl (32.0-36.0); MEAN CELL VOLUME 91.4 fl (80-96); MEAN PLT VOLUME 8.4 fl (7.5-11.1); NEUTROPHILS 56.5 % (42.8-82.8); PLATELET COUNT 192 K/MM3 (134-434); RDW 13.7 % (11.6-15.6); WHITE BLOOD COUNT 6.7 K/mm3 (4.0-10.0)
[2017-02-25 08:13] LABS: ANION GAP 7 (8-16); CALCIUM 9.2 mg/dL (8.5-10.1); CO2 32 mmol/L (21-32); CREATININE 1.2 mg/dL (0.55-1.02); GLUCOSE,RANDOM 94 mg/dL (74-106)
[2017-02-25] MEDS ORDERED: PT OWN MED DRAWER 7, Y5N ONE ×3 (08:17→11:54)
[2017-02-25] MEDS: AMYLASE PO SCH ×3 (08:45→16:55)
[2017-02-25] MEDS: PROTEASE PO SCH ×3 (08:45→16:55)
[2017-02-25] MEDS: [UNRECOGNIZED DRUG - OTHER] PO SCH ×3 (08:45→16:55)
[2017-02-25] MEDS: LIPASE PO SCH ×3 (08:45→16:55)
[2017-02-25] MEDS: CHOLECALCIFEROL (VITAMIN D3) 1,000 UNIT TABLET (FP) PO SCH (09:32)
[2017-02-25] MEDS: APIXABAN 5 MG TABLET PO SCH ×2 (09:32→21:46)
[2017-02-25] MEDS: AMIODARONE HCL 200 MG TABLET (FP) PO SCH ×2 (09:32→21:46)
[2017-02-25] MEDS: RIFAXIMIN 550 MG TABLET (UD) PO SCH ×2 (09:32→21:47)
[2017-02-25] MEDS: SPIRONOLACTONE 25 MG TABLET (FP) PO SCH (09:32)
[2017-02-25] MEDS: LOSARTAN POTASSIUM 25 MG TABLET PO SCH (09:32)
[2017-02-25] MEDS: LORATADINE 10 MG TABLET PO SCH (09:32)
[2017-02-25] MEDS: LOPERAMIDE HCL 2 MG CAPSULE PO PRN (13:26)
[2017-02-25] MEDS: MOMETASONE FUROATE 220 MCG/IH INHALER IH SCH (21:46)
[2017-02-26] MEDS: METOPROLOL SUCCINATE 50 MG TAB.SR.24H (FP) PO SCH ×3 (06:07→21:57)
[2017-02-26] MEDS: LEVOTHYROXINE NA 88 MCG TABLET (FP) PO SCH (06:07)
[2017-02-26] MEDS ORDERED: PT OWN MED DRAWER 7, Y5N ONE ×6 (08:19→21:51)
[2017-02-26] MEDS: LIPASE PO SCH ×3 (08:25→17:55)
[2017-02-26] MEDS: PROTEASE PO SCH ×3 (08:25→17:55)
[2017-02-26] MEDS: AMYLASE PO SCH ×3 (08:25→17:55)
[2017-02-26] MEDS: [UNRECOGNIZED DRUG - OTHER] PO SCH ×3 (08:25→17:55)
[2017-02-26] MEDS: AMIODARONE HCL 200 MG TABLET (FP) PO SCH ×2 (10:00→22:05)
[2017-02-26] MEDS: SPIRONOLACTONE 25 MG TABLET (FP) PO SCH (10:20)
[2017-02-26] MEDS: LOSARTAN POTASSIUM 25 MG TABLET PO SCH (10:20)
[2017-02-26] MEDS: APIXABAN 2.5 MG TABLET PO SCH ×2 (10:20→22:05)
--- NOTE | 2017-02-26 11:08 | PN ---
Progress Note, Physician Chief Complaint: Events noted Not in distress. Sitting in chair History of Present Illness: Patient was seen and examined. Awake and alert. Chart was reviewed Denies chest pain, SOB or palpitations - Current Medication List Current Medications: Active Medications Acetaminophen (Tylenol -) 650 mg PO Q6H PRN PRN Reason: PAIN Last Admin: 02/23/17 21:39 Dose: 650 mg Albuterol Sulfate (Ventolin Hfa Inhaler -) 2 puff IH Q6HPO PRN PRN Reason: ASTHMA Last Admin: 02/24/17 09:54 Dose: 2 puff Amiodarone HCl (Cordarone -) 200 mg PO BID [facility] Last Admin: 02/25/17 21:46 Dose: 200 mg Apixaban (Eliquis -) 2.5 mg PO BID [facility] Last Admin: 02/26/17 10:20 Dose: 2.5 mg Artificial Tears (Artificial Tears) 1 drop OU Q4H PRN PRN Reason: DRY EYES Last Admin: 02/23/17 21:39 Dose: 1 drop Cholecalciferol (Vitamin D3 -) 1,000 unit PO DAILY [facility] Last Admin: 02/25/17 09:32 Dose: 1,000 unit Levothyroxine Sodium (Synthroid -) 88 mcg PO DAILY@0700 [facility] Last Admin: 02/26/17 06:07 Dose: 88 mcg Loperamide HCl (Imodium -) 2 mg PO DAILY PRN PRN Reason: DIARRHEA Last Admin: 02/25/17 13:26 Dose: 2 mg Loratadine (Claritin -) 10 mg PO DAILY [facility] Last Admin: 02/25/17 09:32 Dose: 10 mg Losartan Potassium (Cozaar -) 25 mg PO DAILY [facility] Last Admin: 02/26/17 10:20 Dose: 25 mg Metoprolol Succinate (Toprol Xl -) 50 mg PO TID [facility] Last Admin: 02/26/17 06:07 Dose: 50 mg Mometasone Furoate (Asmanex 220mcg -) 1 puff IH HS [facility] Last Admin: 02/25/17 21:46 Dose: 1 puff Non-Formulary Medication (Lipase/Protease/Amylase [Pancreaze Dr 2,600 Unit Cap] ) 1 each PO TIDCM [facility] Last Admin: 02/26/17 08:25 Dose: Not Given Rifaximin (Xifaxan -) 550 mg PO BID [facility] Last Admin: 02/25/17 21:47 Dose: 550 mg Spironolactone (Aldactone -) 25 mg PO DAILY [facility] Last Admin: 02/26/17 10:20 Dose: 25 mg - Objective Vital Signs: Vital Signs Temperature 98.3 F 02/26/17 10:00 Pulse Rate 76 02/26/17 10:00 Respiratory Rate 18 02/26/17 10:00 Blood Pressure 115/56 02/26/17 10:00 O2 Sat by Pulse Oximetry (%) 98 02/26/17 10:00 Neck: Yes: Supple Cardiovascular: Yes: Pulse Irregular, Murmur (2/6 SM), S1, S2 Respiratory: Yes: CTA Bilaterally Gastrointestinal: Yes: Normal Bowel Sounds, Soft. No: Tenderness Edema: No Additional Findings/Remarks: Review of Systems Cardiovascular: As noted above Respiratory: denies: Cough or Sputum Production Gastrointestinal: denies: Nausea, Vomiting, Diarrhea, Constipation or Abdominal Discomfort Musculoskeletal: No Symptoms Reported Endocrine: No Symptoms Reported Labs: CBC, BMP 02/25/17 06:20 02/25/17 06:20 Problem List - Problems (1) Acute on chronic systolic (congestive) heart failure Code(s): I50.23 - ACUTE ON CHRONIC SYSTOLIC (CONGESTIVE) HEART FAILURE (2) Atrial fibrillation Code(s): I48.91 - UNSPECIFIED ATRIAL FIBRILLATION Qualifiers: Atrial fibrillation type: persistent Qualified Code(s): I48.1 - Persistent atrial fibrillation (3) Cardiomyopathy Code(s): I42.9 - CARDIOMYOPATHY, UNSPECIFIED Qualifiers: Cardiomyopathy type: unspecified Qualified Code(s): I42.9 - Cardiomyopathy, unspecified (4) HTN (hypertension) Code(s): I10 - ESSENTIAL (PRIMARY) HYPERTENSION Qualifiers: Hypertension type: essential hypertension Qualified Code(s): I10 - Essential (primary) hypertension (5) Hypothyroidism Code(s): E03.9 - HYPOTHYROIDISM, UNSPECIFIED Qualifiers: Hypothyroidism type: unspecified Qualified Code(s): E03.9 - Hypothyroidism, unspecified (6) S/P mitral valve repair Code(s): Z98.890 - OTHER SPECIFIED POSTPROCEDURAL STATES (7) S/P tricuspid valve repair Code(s): Z98.890 - OTHER SPECIFIED POSTPROCEDURAL STATES Assessment/Plan 1. Persistent atrial fibrillation [id number] score of 5 on NOAC 2. 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 HTN 5. Hypothyroidism 6. Asthma PLAN: 1. Continue Aldactone with close monitoring of renal function 2. Continue Toprol XL and Losartan 3. Continue Amiodarone 4. Continue Eliquis considering the above noted [id number] score of 5 5. Plan for PADMINI guided DCCV today Further plans are to follow Willard Grsisom MD
[2017-02-26] MEDS: RIFAXIMIN 550 MG TABLET (UD) PO SCH ×2 (11:18→22:05)
[2017-02-26] MEDS: LORATADINE 10 MG TABLET PO SCH ×2 (11:18→15:05)
[2017-02-26] MEDS: CHOLECALCIFEROL (VITAMIN D3) 1,000 UNIT TABLET (FP) PO SCH ×2 (11:18→15:05)
[2017-02-26] MEDS ORDERED: LIDOCAINE HCL/PF 2% SDV 5ML VIAL ONE (11:58)
[2017-02-26] MEDS ORDERED: GLYCOPYRROLATE 0.2 MG/1 ML VIAL ONE (11:58)
[2017-02-26] MEDS ORDERED: SUCCINYLCHOLINE CHLORIDE 200 MG/10 ML VIAL ONE (11:58)
[2017-02-26] MEDS ORDERED: ePHEDrine SULFATE 50 MG/1 ML AMPULE ONE (11:59)
[2017-02-26] MEDS ORDERED: TETRACAINE/BENZOCAINE/BUTAMBEN 20 GM SPR TP ONE (12:35)
--- NOTE | 2017-02-26 15:16 | PN ---
Progress Note, Physician Chief Complaint: Ms Duran is without complaint. Denies cp, sob, n/v. Asking if she can go home - Current Medication List Current Medications: Active Medications Acetaminophen (Tylenol -) 650 mg PO Q6H PRN PRN Reason: PAIN Last Admin: 02/23/17 21:39 Dose: 650 mg Albuterol Sulfate (Ventolin Hfa Inhaler -) 2 puff IH Q6HPO PRN PRN Reason: ASTHMA Last Admin: 02/24/17 09:54 Dose: 2 puff Amiodarone HCl (Cordarone -) 200 mg PO BID [facility] Last Admin: 02/26/17 10:00 Dose: Not Given Apixaban (Eliquis -) 2.5 mg PO BID [facility] Last Admin: 02/26/17 10:20 Dose: 2.5 mg Artificial Tears (Artificial Tears) 1 drop OU Q4H PRN PRN Reason: DRY EYES Last Admin: 02/23/17 21:39 Dose: 1 drop Cholecalciferol (Vitamin D3 -) 1,000 unit PO DAILY [facility] Last Admin: 02/26/17 15:05 Dose: 1,000 unit Levothyroxine Sodium (Synthroid -) 88 mcg PO DAILY@0700 [facility] Last Admin: 02/26/17 06:07 Dose: 88 mcg Loperamide HCl (Imodium -) 2 mg PO DAILY PRN PRN Reason: DIARRHEA Last Admin: 02/25/17 13:26 Dose: 2 mg Loratadine (Claritin -) 10 mg PO DAILY [facility] Last Admin: 02/26/17 15:05 Dose: 10 mg Losartan Potassium (Cozaar -) 25 mg PO DAILY [facility] Last Admin: 02/26/17 10:20 Dose: 25 mg Metoprolol Succinate (Toprol Xl -) 50 mg PO TID [facility] Last Admin: 02/26/17 15:02 Dose: Not Given Mometasone Furoate (Asmanex 220mcg -) 1 puff IH HS [facility] Last Admin: 02/25/17 21:46 Dose: 1 puff Non-Formulary Medication (Lipase/Protease/Amylase [Pancreaze Dr 2,600 Unit Cap] ) 1 each PO TIDCM [facility] Last Admin: 02/26/17 11:51 Dose: Not Given Rifaximin (Xifaxan -) 550 mg PO BID [facility] Last Admin: 02/26/17 11:18 Dose: Not Given Spironolactone (Aldactone -) 25 mg PO DAILY [facility] Last Admin: 02/26/17 10:20 Dose: 25 mg - Objective Vital Signs: Vital Signs Temperature 98.8 F 02/26/17 14:00 Pulse Rate 66 02/26/17 14:00 Respiratory Rate 18 02/26/17 14:00 Blood Pressure 114/59 02/26/17 14:00 O2 Sat by Pulse Oximetry (%) 100 02/26/17 13:41 Constitutional: Yes: Well Nourished, No Distress, Calm Cardiovascular: Yes: Bradycardia. No: Gallop, Murmur, Rub Respiratory: Yes: Regular, CTA Bilaterally. No: Rales, Rhonchi, Wheezes Gastrointestinal: Yes: Normal Bowel Sounds, Soft. No: Distention, Tenderness Extremities: Yes: WNL Edema: No Labs: CBC, BMP 02/25/17 06:20 02/25/17 06:20 Problem List - Problems (1) Persistent atrial fibrillation Code(s): I48.1 - PERSISTENT ATRIAL FIBRILLATION (2) CHF (congestive heart failure) Code(s): I50.9 - HEART FAILURE, UNSPECIFIED Qualifiers: Congestive heart failure type: unspecified congestive heart failure type Congestive heart failure chronicity: chronic Qualified Code(s): I50.9 - Heart failure, unspecified (3) Hypothyroidism Code(s): E03.9 - HYPOTHYROIDISM, UNSPECIFIED Qualifiers: Hypothyroidism type: unspecified Qualified Code(s): E03.9 - Hypothyroidism, unspecified (4) HTN (hypertension) Code(s): I10 - ESSENTIAL (PRIMARY) HYPERTENSION Qualifiers: Hypertension type: essential hypertension Qualified Code(s): I10 - Essential (primary) hypertension (5) S/P mitral valve repair Code(s): Z98.890 - OTHER SPECIFIED POSTPROCEDURAL STATES (6) IBS (irritable bowel syndrome) Code(s): K58.9 - IRRITABLE BOWEL SYNDROME WITHOUT DIARRHEA Assessment/Plan (1) Persistent atrial fibrillation Assessment/Plan: -s/p cardioversion and seeing afterwards -currently bradycardic -cardiology following -defer to cardiology about adjusting odalys agents -discharge when cleared by cardiology, currently will monitor for 24 hours -on eliquis -continue toprol and amiodarone Code(s): I48.1 - PERSISTENT ATRIAL FIBRILLATION (2) CHF (congestive heart failure) Assessment/Plan: -continue aldactone Code(s): I50.9 - HEART FAILURE, UNSPECIFIED Qualifiers: Congestive heart failure type: unspecified congestive heart failure type Congestive heart failure chronicity: chronic Qualified Code(s): I50.9 - Heart failure, unspecified (3) Hypothyroidism Assessment/Plan: -continue synthroid Code(s): E03.9 - HYPOTHYROIDISM, UNSPECIFIED Qualifiers: Hypothyroidism type: unspecified Qualified Code(s): E03.9 - Hypothyroidism, unspecified (4) HTN (hypertension) Assessment/Plan: -well controlled -continue current regimen Code(s): I10 - ESSENTIAL (PRIMARY) HYPERTENSION (5) S/P mitral valve repair Assessment/Plan: -cardiology following Code(s): Z98.890 - OTHER SPECIFIED POSTPROCEDURAL STATES (6) IBS (irritable bowel syndrome) Assessment/Plan: -continue rifaximin and prn imodium -continue pancreatic enzymes with meals Code(s): K58.9 - IRRITABLE BOWEL SYNDROME WITHOUT DIARRHEA
[2017-02-26] MEDS: ACETAMINOPHEN 325 MG TABLET (FP) PO PRN ×2 (15:48→22:05)
[2017-02-26] MEDS: MOMETASONE FUROATE 220 MCG/IH INHALER IH SCH (22:05)
[2017-02-27] MEDS: LOPERAMIDE HCL 2 MG CAPSULE PO PRN (01:15)
[2017-02-27] MEDS: METOPROLOL SUCCINATE 50 MG TAB.SR.24H (FP) PO SCH (05:30)
[2017-02-27] MEDS: LEVOTHYROXINE NA 88 MCG TABLET (FP) PO SCH (06:10)
[2017-02-27 07:24] LABS: BASOPHIL 0.7 % (0-2.0); EOSINOPHIL 6.9 % (0-4.5); MCH 30.7 pg (25.7-33.7); MCHC 33.2 g/dl (32.0-36.0); MEAN CELL VOLUME 92.3 fl (80-96); MEAN PLT VOLUME 8.4 fl (7.5-11.1); NEUTROPHILS 53.1 % (42.8-82.8); PLATELET COUNT 199 K/MM3 (134-434); RDW 13.7 % (11.6-15.6); WHITE BLOOD COUNT 6.1 K/mm3 (4.0-10.0)
[2017-02-27 07:48] LABS: ANION GAP 9 (8-16); CALCIUM 8.5 mg/dL (8.5-10.1); CO2 28 mmol/L (21-32); CREATININE 1.2 mg/dL (0.55-1.02); GLUCOSE,RANDOM 86 mg/dL (74-106); MAGNESIUM 2.2 mg/dL (1.8-2.4); PHOSPHOROUS 2.7 mg/dL (2.5-4.9)
[2017-02-27] MEDS: AMYLASE PO SCH (08:06)
[2017-02-27] MEDS: LIPASE PO SCH (08:06)
[2017-02-27] MEDS: PROTEASE PO SCH (08:06)
[2017-02-27] MEDS: [UNRECOGNIZED DRUG - OTHER] PO SCH (08:06)
[2017-02-27] MEDS ORDERED: PT OWN MED DRAWER 7, Y5N ONE (08:46)
[2017-02-27] MEDS: SPIRONOLACTONE 25 MG TABLET (FP) PO SCH (08:59)
[2017-02-27] MEDS: CHOLECALCIFEROL (VITAMIN D3) 1,000 UNIT TABLET (FP) PO SCH (08:59)
[2017-02-27] MEDS: LORATADINE 10 MG TABLET PO SCH (08:59)
[2017-02-27] MEDS: LOSARTAN POTASSIUM 25 MG TABLET PO SCH (08:59)
[2017-02-27] MEDS: AMIODARONE HCL 200 MG TABLET (FP) PO SCH (08:59)
[2017-02-27] MEDS: RIFAXIMIN 550 MG TABLET (UD) PO SCH (08:59)
[2017-02-27] MEDS: APIXABAN 2.5 MG TABLET PO SCH (08:59)
[2017-02-27 09:37] VITALS: BP 118/59; PULSE 50; TEMP 97.9
--- NOTE | 2017-02-27 10:55 | PN ---
Progress Note, Physician History of Present Illness: Sinus bradycardia post PADMINI-guided DCCV. - Current Medication List Current Medications: Active Medications Acetaminophen (Tylenol -) 650 mg PO Q6H PRN PRN Reason: PAIN Last Admin: 02/26/17 22:05 Dose: 650 mg Albuterol Sulfate (Ventolin Hfa Inhaler -) 2 puff IH Q6HPO PRN PRN Reason: ASTHMA Last Admin: 02/24/17 09:54 Dose: 2 puff Amiodarone HCl (Cordarone -) [address] [facility] Last Admin: 02/27/17 08:59 Dose: 200 mg Apixaban (Eliquis -) 2.[address] [facility] Last Admin: 02/27/17 08:59 Dose: 2.5 mg Artificial Tears (Artificial Tears) 1 drop OU Q4H PRN PRN Reason: DRY EYES Last Admin: 02/23/17 21:39 Dose: 1 drop Cholecalciferol (Vitamin D3 -) 1,[address] [facility] Last Admin: 02/27/17 08:59 Dose: 1,000 unit Levothyroxine Sodium (Synthroid -) 88 mcg PO DAILY@0700 [facility] Last Admin: 02/27/17 06:10 Dose: 88 mcg Loperamide HCl (Imodium -) 2 mg PO DAILY PRN PRN Reason: DIARRHEA Last Admin: 02/27/17 01:15 Dose: 2 mg Loratadine (Claritin -) [address] [facility] Last Admin: 02/27/17 08:59 Dose: 10 mg Losartan Potassium (Cozaar -) [address] [facility] Last Admin: 02/27/17 08:59 Dose: 25 mg Metoprolol Succinate (Toprol Xl -) [address] [facility] Last Admin: 02/27/17 05:30 Dose: Not Given Mometasone Furoate (Asmanex 220mcg -) [address] [facility] Last Admin: 02/26/17 22:05 Dose: 1 puff Non-Formulary Medication (Lipase/Protease/Amylase [Pancreaze Dr 2,600 Unit Cap] ) [address] [facility] Last Admin: 02/27/17 08:06 Dose: 1 each Rifaximin (Xifaxan -) [address] [facility] Last Admin: 02/27/17 08:59 Dose: 550 mg Spironolactone (Aldactone -) 25 mg PO DAILY [facility] Last Admin: 02/27/17 08:59 Dose: 25 mg - Objective Vital Signs: Vital Signs Temperature 97.9 F 02/27/17 09:00 Pulse Rate 50 L 02/27/17 09:00 Respiratory Rate 18 02/27/17 09:00 Blood Pressure 118/59 02/27/17 09:00 O2 Sat by Pulse Oximetry (%) 99 02/27/17 09:00 Constitutional: Yes: No Distress, Calm Neck: Yes: Supple Cardiovascular: Yes: Bradycardia Respiratory: Yes: Regular, Diminished Gastrointestinal: Yes: Normal Bowel Sounds, Soft Edema: No Labs: CBC, BMP 02/27/17 05:35 02/27/17 05:35 Problem List - Problems (1) Persistent atrial fibrillation Code(s): I48.1 - PERSISTENT ATRIAL FIBRILLATION (2) Acute on chronic systolic (congestive) heart failure Code(s): I50.23 - ACUTE ON CHRONIC SYSTOLIC (CONGESTIVE) HEART FAILURE (3) Cardiomyopathy Code(s): I42.9 - CARDIOMYOPATHY, UNSPECIFIED Qualifiers: Cardiomyopathy type: unspecified Qualified Code(s): I42.9 - Cardiomyopathy, unspecified (4) Hypertensive cardiomyopathy Code(s): I11.9 - HYPERTENSIVE HEART DISEASE WITHOUT HEART FAILURE I43 - CARDIOMYOPATHY IN DISEASES CLASSIFIED ELSEWHERE Qualifiers: Heart failure presence: with heart failure Qualified Code(s): I11.0 - Hypertensive heart disease with heart failure; I43 - Cardiomyopathy in diseases classified elsewhere (5) Hypothyroidism Code(s): E03.9 - HYPOTHYROIDISM, UNSPECIFIED Qualifiers: Hypothyroidism type: unspecified Qualified Code(s): E03.9 - Hypothyroidism, unspecified (6) Asthma Code(s): J45.909 - UNSPECIFIED ASTHMA, UNCOMPLICATED Qualifiers: Asthma severity: mild intermittent (7) S/P mitral valve repair Code(s): Z98.890 - OTHER SPECIFIED POSTPROCEDURAL STATES (8) S/P tricuspid valve repair Code(s): Z98.890 - OTHER SPECIFIED POSTPROCEDURAL STATES (9) Premature ventricular contraction Code(s): I49.3 - VENTRICULAR PREMATURE DEPOLARIZATION Assessment/Plan 1. Paroxysmal atrial fibrillation -> SR post PADMINI-guided DCCV [id number] score of 5 on NOAC 2. 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 HTN 5. Hypothyroidism 6. Asthma 7. CKD PLAN: 1. Continue Aldactone 25 qd with close monitoring of renal function 2. Decrease Toprol XL 25 qd and Losartan 25 qd 3. Decrease Amiodarone 200 qd 4. Continue Eliquis 2.5 bid (age > 80, wt < 60 kg) considering the above noted [id number] score of 5 5. D/c planning with f/u with Dr. Barney [phone] Sunday.
[2017-02-27] MEDS ORDERED: METOPROLOL SUCCINATE 25 MG TAB.SR.24H (FP) PO SCH (11:17)
--- NOTE | 2017-02-27 11:30 | DS ---
Physical Examination Vital Signs: Vital Signs Temperature 97.9 F 02/27/17 09:00 Pulse Rate 50 L 02/27/17 09:00 Respiratory Rate 18 02/27/17 09:00 Blood Pressure 118/59 02/27/17 09:00 O2 Sat by Pulse Oximetry (%) 99 02/27/17 09:00 Constitutional: Yes: Well Nourished, No Distress, Calm HENT: Yes: Atraumatic, Normocephalic Cardiovascular: Yes: Regular Rate and Rhythm, S1, S2. No: Murmur Respiratory: Yes: Regular, CTA Bilaterally. No: Rales, Rhonchi, Wheezes Gastrointestinal: Yes: Normal Bowel Sounds, Soft. No: Distention, Tenderness Edema: No Neurological: Yes: Alert, Oriented Labs: CBC, BMP 02/27/17 05:35 02/27/17 05:35 Discharge Summary Reason For Visit: CONGESTIVE HEART FAILURE; ATRIAL FIBRILLATION Current Active Problems Acute on chronic systolic (congestive) heart failure (Acute) Asthma (Acute) Atrial fibrillation (Acute) CHF (congestive heart failure) (Acute) Cardiomyopathy (Acute) HTN (hypertension) (Acute) Hypertensive cardiomyopathy (Acute) Hypothyroidism (Acute) IBS (irritable bowel syndrome) (Acute) Persistent atrial fibrillation (Acute) Premature ventricular contraction (Acute) S/P mitral valve repair (Acute) S/P tricuspid valve repair (Acute) Hospital Course: 81 yo female presented with afib , rapid ventricular response. Was started on amiodarone load, other rate controlling meds were adjusted. Was found to have hypokinesis of left ventricle, so started on spironolactone as well. Had PADMINI and DCCV on 02/26. Remains in sinus rhythm (with bradycardia now), no shortnes of breath. Has been on Eliquis for anticoagulation. Will be discharged today , amiodarone now to be daily. Discussed with cardio (to follow-up in cardio office ). Condition: Stable - Instructions Referrals: Melissa Roberts MD [Primary Care Provider] - Linh Barney MD [Staff Physician] - Disposition: HOME - Home Medications Comprehensive Discharge Medication List: Ambulatory Orders Albuterol Sulfate [Proair Hfa -] 2 inh PO BID 11/09/13 Cholecalciferol (Vitamin D3) [Vitamin D3] 1,000 unit PO DAILY 03/16/14 Fluticasone Propionate [Flovent Hfa] 110 mcg IH BID 11/09/13 Hypromellose 0.5% Opth Soln [Artificial Tears] 1 drop OU Q4H PRN #0 drops Apixaban [Eliquis] 5 mg PO BID 02/22/17 Cetirizine HCl [Zyrtec -] 10 mg PO DAILY 02/22/17 Levothyroxine [Synthroid -] 88 mcg PO ASDIR 02/22/17 Lipase/Protease/Amylase [Pancreaze Dr 2,600 Unit Cap] 1 each PO TIDCM 02/22/17 Rifaximin [Xifaxan -] 550 mg PO BID 02/22/17 Acetaminophen [Tylenol .Extra-Strength -] 1,000 mg PO Q6H PRN 02/23/17 Loperamide HCl [Imodium -] 2 mg PO DAILY PRN 02/23/17 Amiodarone HCl [Cordarone -] 200 mg PO DAILY #30 tablet 02/27/17 Apixaban [Eliquis -] 2.5 mg PO BID tablet 02/27/17 Levothyroxine [Synthroid -] 88 mcg PO DAILY@0700 tablet 02/27/17 Losartan Potassium [Cozaar -] 25 mg PO DAILY #30 tablet 02/27/17 Metoprolol Succinate [Toprol XL -] 25 mg PO DAILY #30 tab 02/27/17 Metoprolol Succinate [Toprol Xl -] 25 mg PO DAILY #30 tab.sr.24h 02/27/17 Spironolactone [Aldactone -] 25 mg PO DAILY #30 tablet 02/27/17
--- NOTE | 2017-02-27 14:52 | EKG ---
Test Reason : Blood Pressure : / mmHG Vent. Rate : 090 BPM Atrial Rate : 090 BPM P-R Int : 158 ms QRS Dur : 096 ms QT Int : 396 ms P-R-T Axes : 078 -41 -53 degrees QTc Int : 484 ms SINUS RHYTHM INTRA ATRIAL CONDUCTION ABNORMALITY LEFT AXIS DEVIATION CONSISTENT WITH LAHB MODERATE VOLTAGE CRITERIA FOR LVH, MAY BE NORMAL VARIANT CANNOT RULE OUT SEPTAL INFARCT (CITED ON OR BEFORE 22-FEB-2017) ABNORMAL ECG WHEN COMPARED WITH ECG OF 22-FEB-2017 16:48, SINUS RHYTHM HAS REPLACED ATRIAL FIBRILLATION CORRELATE CLINICALLY AND REPEAT IF INDICATED Confirmed by WILTON REID MD ([id number]) on 02/27/2017 2:52:21 PM Referred By: JIMENA COVARRUBIAS Confirmed By:WILTON REID MD
== END 2017-02-27 12:00 | disposition home or self-care (01) | DRG 308 ==
LOC: JER 15:01 → JERBED 18:53 → J4S 22:18
PROVIDERS: ADMIT Internal Medicine; ATTEND Internal Medicine
PROC: B246ZZ4 Ultrasonography of Right and Left Heart, Transesophageal (ICD-10-PCS; 2017-02-26)
PROC: B24CZZ4 Ultrasonography of Pericardium, Transesophageal (ICD-10-PCS; 2017-02-26)
PROC: 5A2204Z Restoration of Cardiac Rhythm, Single (ICD-10-PCS; principal; 2017-02-26 12:00)
DX: I48.1 Persistent atrial fibrillation (principal); I50.23 Acute on chronic systolic (congestive) heart failure; I11.0 Hypertensive heart disease with heart failure; I42.9 Cardiomyopathy, unspecified; K58.9 Irritable bowel syndrome, unspecified; Z95.2 Presence of prosthetic heart valve; E78.00 Pure hypercholesterolemia, unspecified; Z79.01 Long term (current) use of anticoagulants; E03.9 Hypothyroidism, unspecified; I49.3 Ventricular premature depolarization
CPT/HCPCS: 36415; 71010-TC; 80048; 80053; 82550; 82803; 83735; 83880; 84100; 84443; 84484; 85025; 93005; 93010; 93312; 93325; 99283-25

== ENCOUNTER 2017-04-05 16:07 | Inpatient (IN) | payer OTHER ==
--- NOTE | 2017-04-05 16:45 | PDOC ---
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 States her abdominal pain started 2 day, was crampy in nature rated 8/10. Presented with diarrhea 2d also, which was nonbloody and pt had 14 episodes yesterday. Pt also had N/V begining today, with vomiting x1 today. She endorses N/V worse w/ food, episodes of feeling incomplete urinary evacuation, SOB and MCCLAIN. Denies blood in urine/stool/vomitus, CP, palpitations, or vision changes. Pt socially drank alcohol, has not drank for years. States she is a lifetime non-smoker and no illicit drug use. Timing/Duration: constant Severity: moderate Modifying Factors: improves with: eating, movement Associated Symptoms: reports: headaches, loss of appetite, nausea/vomiting, shortness of breath. denies: chest pain, cough, diaphoresis, fever/chills, malaise, rash, seizure, syncope, weakness Beta Brenda Contraindications(Core Measure): Yes: Bradycardia (HR <60bpm) Past History - Travel Traveled outside of the country in the last 30 days: No Close contact w/someone who was outside of country & ill: No - Past Medical History Allergies/Adverse Reactions: Allergies Allergy/AdvReac Type Severity Reaction Status Date / Time levofloxacin [From Levaquin] Allergy Intermediate Hives Verified 04/05/17 16:19 shellfish derived Allergy Intermediate Hives Verified 04/05/17 16:19 Sulfa (Sulfonamide Allergy Intermediate Hives Verified 04/05/17 16:19 Antibiotics) Home Medications: Ambulatory Orders Albuterol Sulfate [Proair Hfa -] 2 inh PO BID 11/09/13 Cholecalciferol (Vitamin D3) [Vitamin D3] 1,000 unit PO DAILY 11/09/13 Fluticasone Propionate [Flovent Hfa] 110 mcg IH BID 11/09/13 Hypromellose 0.5% Opth Soln [Artificial Tears] 1 drop OU Q4H PRN #0 drops Levothyroxine [Synthroid -] 88 mcg PO ASDIR 02/22/17 Lipase/Protease/Amylase [Pancreaze Dr 2,600 Unit Cap] 1 each PO TIDCM 02/22/17 Rifaximin [Xifaxan -] 550 mg PO BID 02/22/17 Acetaminophen [Tylenol .Extra-Strength -] 1,000 mg PO Q6H PRN 02/23/17 Amiodarone HCl [Cordarone -] 200 mg PO DAILY #30 tablet 02/27/17 Apixaban [Eliquis -] 2.5 mg PO BID tablet 02/27/17 Nebivolol HCl [Bystolic] 5 mg PO ASDIR 04/05/17 Nitrofurantoin Macrocrystal [Nitrofurantoin] 100 mg PO BID 04/05/17 Olmesartan Medoxomil 40 mg PO DAILY 04/05/17 Anemia: Yes Asthma: Yes (BRONCHIAL) Cancer: No Cardiac Disorders: Yes (a-fIB) CVA: No COPD: Yes CHF: Yes (short period after cardiac surgery) Dementia: No Diabetes: No GI Disorders: Yes (IBS, PANCREAS CYSTS,) Disorders: No HTN: Yes Hypercholesterolemia: Yes Liver Disease: No Seizures: No Thyroid Disease: Yes (THYROID NODULES AND SHUTDOWN 2003) - Surgical History Abdominal Surgery: Yes (PARTIAL GASTRECTOMY) Appendectomy: No Cardiac Surgery: Yes (MV REPAIR, TRICUSPID VALVE REPAIR) Cholecystectomy: No GI Surgery: Yes (Bill Deras partial gastrectomy) Lung Surgery: No Neurologic Surgery: No Orthopedic Surgery: No - Immunization History Immunization Up to Date: Yes - Psycho/Social/Smoking Cessation Hx Anxiety: No Suicidal Ideation: No Smoking History: Never smoked Have you smoked in the past 12 months: No Information on smoking cessation initiated: No Hx Alcohol Use: No Drug/Substance Use Hx: No Substance Use Type: None Hx Substance Use Treatment: No Review of Systems - Review of Systems Able to Perform ROS?: Yes Is the patient limited Italian proficient: No Constitutional: Yes: Loss of Appetite, Weight Stable. No: Chills, Diaphoresis, Fever, Malaise, Night Sweats, Weakness HEENTM: No: Eye Pain, Blurred Vision, Tearing, Recent change in vision, Double Vision, Nose Pain Respiratory: Yes: Shortness of Breath. No: Cough, Productive cough Cardiac (ROS): Yes: Other (hx afib). No: Chest Pain, Edema, Lightheadedness, Palpitations, Syncope ABD/GI: Yes: Diarrhea, Nausea, Poor Appetite, Poor Fluid Intake, Vomiting, Abdominal cramping. No: Abdominal Distended, Abd. Pain w/ defecation, Blood Streaked Bowels, Constipated, Difficulty Swallowing, Rectal Bleeding : Yes: Other (feeling of incomplete evacuation). No: Burning, Dysuria, Discharge, Frequency, Hematuria, Incontinence, Urgency Musculoskeletal: No: Back Pain, Gout Neurological: Yes: Headache. No: Numbness, Paresthesia, Tingling, Tremors, Weakness Endocrine: No: Increased Thirst, Increased Urine, Unexplained Weight Gain, Unexplained Weight Loss All Other Systems: Reviewed and Negative *Physical Exam - Vital Signs Last Vital Signs Temp Pulse Resp BP Pulse Ox 97.5 F L 54 L 18 102/65 100 04/05/17 16:17 04/05/17 16:17 04/05/17 16:17 04/05/17 16:17 04/05/17 16:17 - Physical Exam General Appearance: Yes: Nourished, Appropriately Dressed, Thin HEENT: positive: EOMI, DEJUAN, Normal Voice, Hearing Grossly Normal. negative: Scleral Icterus (R), Scleral Icterus (L) Respiratory/Chest: positive: Lungs Clear, Normal Breath Sounds. negative: Accessory Muscle Use, Rapid RR, Decreased Breath Sounds, Crackles, Rales, Rhonchi, Stridor, Wheezing, Dullness, Plerual Rub Cardiovascular: positive: Bradycardia. negative: Murmur, Tachycardia, Diastolic Murmur, Systolic Murmur Gastrointestinal/Abdominal: positive: Flat, Soft Musculoskeletal: positive: Normal Inspection. negative: CVA Tenderness, Muscle Spasm Extremity: positive: Normal Inspection Neurologic: positive: radio recorder II-XII NML intact, Fully Oriented, Alert, Normal Mood/ Affect, Normal Response, Motor Strength 5/5. negative: EOM Palsy, Facial Droop , Numbness, Sensory Deficit ED Treatment Course - LABORATORY CBC & Chemistry Diagram: 04/05/17 17:23 04/05/17 17:23 Medical Decision Making - Medical Decision Making 04/05/17 17:54 This 81yo female w/ PMHX of pancreatitis of unknown etiology 10y ago, partial gastrectomy s/p Bill Deras procedure, mitral and tricuspid valve repair 5y ago, Afib s/p amiodarone and cardioversion, bradycardia at night, HTN, cervical stenosis, neck laminectomy, and OA presents due to abdominal pain, diarrhea and headache. Small bowel obstruction -BMP, CBC w/ diff, lactic acid, BGM -standing abdominal XRay Dehydration 2/2 diarrhea & vomiting -Normal saline 1L @ 100mL r/o ACLS -troponins, Chest Xray, EKG stat r/o UTI -Urinalysis, blood culture, r/o silent pneumonia -CXR Dispo: to be admitted as per PCP Dr Vigil's request Gets Admitted to [facility]ist Call Dr. 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 Dwain Lundberg, attest that this document has been prepared under my direction and personally reviewed by me in its entirety. I further attest, that it accurately reflects all work, treatment, procedures and medical decision -making performed by me.
[2017-04-05] MEDS ORDERED: SODIUM CHLORIDE 1,000 ML IV SCH (17:30)
[2017-04-05] MEDS ORDERED: ONDANSETRON 4 MG/2 ML VIAL IVPUSH ONE (18:12)
[2017-04-05] MEDS ORDERED: ONDANSETRON 4 MG/2 ML VIAL ONE (18:15)
[2017-04-05 18:26] LABS: BASOPHIL 0.3 % (0-2.0); MCH 31.1 pg (25.7-33.7); MCHC 33.6 g/dl (32.0-36.0); MEAN CELL VOLUME 92.6 fl (80-96); MEAN PLT VOLUME 8.5 fl (7.5-11.1); NEUTROPHILS 82.9 % (42.8-82.8); PLATELET COUNT 188 K/MM3 (134-434); RDW 14.5 % (11.6-15.6); WHITE BLOOD COUNT 7.7 K/mm3 (4.0-10.0)
[2017-04-05 18:54] LABS: ANION GAP 9 (8-16); CO2 19 mmol/L (21-32); CREATININE 1.3 mg/dL (0.55-1.02); GLUCOSE,RANDOM 75 mg/dL (74-106)
[2017-04-05 18:57] LABS: CPK 172 IU/L (26-192); TROPONIN I 0.02 ng/ml (0.00-0.05)
[2017-04-05 19:44] LABS: URINE APPEARANCE CLEAR; URINE BILIRUBIN NEGATIVE (NEGATIVE); URINE BLOOD NEGATIVE (NEGATIVE); URINE COLOR LTYELLOW; URINE GLUCOSE (UA) NEGATIVE (NEGATIVE); URINE KETONE TRACE (NEGATIVE); URINE LEUK ESTERASE TRACE (NEGATIVE); URINE NITRITE NEGATIVE (NEGATIVE); URINE PROTEIN NEGATIVE (NEGATIVE); URINE UROBILINOGEN NEGATIVE mg/dL (0.2-1.0)
[2017-04-05 19:50] LABS: URINE MUCUS RARE; URINE RBC 1 /hpf (0-3); URINE WBC 3 /hpf (3-5)
[2017-04-05] MEDS ORDERED: SODIUM POLYSTYRENE SULFONATE 15 GM/60 ML BOTTLE PO ONE (20:04)
--- NOTE | 2017-04-05 20:04 | PDOC ---
*Physical Exam - Vital Signs Last Vital Signs Temp Pulse Resp BP Pulse Ox 97.5 F L 54 L 18 102/65 100 04/05/17 16:17 04/05/17 16:17 04/05/17 16:17 04/05/17 16:17 04/05/17 16:17 ED Treatment Course - LABORATORY CBC & Chemistry Diagram: 04/05/17 17:23 04/05/17 17:23 - ADDITIONAL ORDERS Additional order review: Laboratory Results 04/05/17 04/05/17 04/05/17 Unknown 19:05 18:37 Sodium Potassium Chloride Carbon Dioxide Anion Gap BUN Creatinine POC Glucometer 83.67429 Random Glucose Lactic Acid 0.9 Calcium Creatine Kinase Creatine Kinase Index CK-MB (CK-2) Troponin I Urine Color Ltyellow Urine Appearance Clear Urine pH 5.0 Urine Protein Negative Urine Glucose (UA) Negative Urine Ketones Trace H Urine Blood Negative Urine Nitrite Negative Urine Bilirubin Negative Urine Urobilinogen Negative Ur Leukocyte Esterase Trace 04/05/17 17:23 Sodium 134 L Potassium 6.0 H Chloride 106 Carbon Dioxide 19 L D Anion Gap 9 BUN 22 H D Creatinine 1.3 H POC Glucometer Random Glucose 75 Lactic Acid Calcium 9.0 Creatine Kinase 172 Creatine Kinase Index 4.2 CK-MB (CK-2) 7.252 H Troponin I 0.02 Urine Color Urine Appearance Urine pH Urine Protein Urine Glucose (UA) Urine Ketones Urine Blood Urine Nitrite Urine Bilirubin Urine Urobilinogen Ur Leukocyte Esterase 04/05/17 04/05/17 18:37 17:23 RBC 4.09 MCV 92.6 MCHC 33.6 RDW 14.5 MPV 8.5 Neutrophils % 82.9 H D Lymphocytes % 10.4 D Monocytes % 5.4 Eosinophils % 1.0 D Basophils % 0.3 POC Glucometer 83.98493 - Medications Given in the ED: ED Medications Discontinued Medications Generic Name Dose Route Start Last Admin Trade Name Freq PRN Reason Stop Dose Admin Ondansetron HCl 4 mg 04/05/17 18:12 04/05/17 18:24 Zofran Injection IVPUSH 04/05/17 18:13 4 mg ONCE ONE Administration *DC/Admit/Observation/Transfer Diagnosis at time of Disposition: Bradycardia, Hyperkalemia - Discharge Dispostion Condition at time of disposition: Stable Admit: Yes
[2017-04-05] MEDS ORDERED: ARTIFICIAL TEARS (POLYVINYL ALCOHOL 1.4%) OPTH DROPS OU PRN (21:14)
[2017-04-05] MEDS ORDERED: LEVOTHYROXINE NA 88 MCG TABLET (FP) PO SCH (21:15)
--- NOTE | 2017-04-05 21:27 | PN ---
Teaching Attending Note Name of Resident: Jasbir Chilel ATTENDING PHYSICIAN STATEMENT I saw and evaluated the patient. I reviewed the resident's note and discussed the case with the resident. I agree with the resident's findings and plan as documented. SUBJECTIVE: 81yo female presenting to the ED with complaint of abdominal pain, N/V/D over the past 2 days and progressive inability to tolerate PO. Denies fever, chills, chest pain, palpitations, blood in her stool or urine but does endorse some urinary retention. Denies orthostatic symptoms despite bradycardia. OBJECTIVE: - Vitals Temp 97.5F BP 102/65 HR 54 RR 18 spO2 100% on RA - Physical Examination General: Thin female in NAD; Alert and oriented HEENT: Pupils equal and reactive; Normal nasopharynx Neck: No JVD or Thyromegaly CV: Sinus Bradycardia Pulmonary: CTA anteriorly GI: Suprapubic tenderness to palpation; No hepatosplenomegaly Integument: No obvious lesions appreciated on visible skin Extremities: No edema - Imaging CXR reviewed ( No acute infiltrate ) AXR reviewed ( No evidence of SBO ) PADMINI 01/2017 reviewed ( EF 25-30% severely reduced w/ global hypokinesis of LV ) - EKG Sinus Bradycardia w/ evidence of bifascicular block - Labs BUN/Cr: 22/1.3 K+: 6.0 H/H: 12.7/37.8 UA significant for trace ketones Troponin 0.02 ASSESSMENT Hyperkalemia - Likely 2/2 ARB in setting of mild dehydration Intractable N/V/D - IBS vs. acute gastroenteritis Asymptomatic Sinus Bradycardia Chronic Systolic CHF - Not currently decompensated CKD IIIa - Appears to be c/w baseline Essential HTN - Currently low-normal in setting of above Chronic Hypothyroidism Paroxysmal A-Fib s/p PADMINI - On NOAC s/p Mitral and Tricuspid Annuloplasty PLAN Admit to telemetry for IV fluid hydration and close monitoring of hyperkalemia and bradycardia while awaiting Cardiology evaluation. Hold ARB and BB ; Continue outpatient regimen otherwise including Amio, NOAC Expectant management of N/V w/ Zofran ; Would give Pepcid overnight and re- evaluate abdominal pain in AM Discontinue Macrobid given no evidence of current UTI IVF hydration for additional 1-2 L overnight with reassessment of volume status tonight and in AM F/U pending BMP, Troponin, Lipase and repeat TSH given ? recent start of Amiodarone 1-2 months ago F/U Cardiology recs DISPOSITION Anticipate discharge in 24-48h if N/V and abdominal pain improves and hyperkalemia resolves overnight with IVF hydration. At this time, patient does not appear to require PT/OT evaluation, but will defer to primary attending evaluation in the morning. Update Vaccinations
--- NOTE | 2017-04-05 21:41 | HP ---
CHIEF COMPLAINT: nausea, vomiting, diarrhea and abdominal pain PCP: MD Neva Cardio: Dr. Mcpherson HISTORY OF PRESENT ILLNESS: 81yo F with PMH of IBS, afib, htn presented to ED c/o abdominal pain, diarrhea, nausea and vomiting for the past two days. Pt reports 14 episodes of watery diarrhea yesterday, and presented to the ED today with worsening abdominal pain. Pain is worse when she eats. Pt reports pain is cramping, non-radiating , located in the center/umbilical region. Pt also reported suprapubic pressure , difficulty initiating and voiding urine yesterday, and was started on macrobid by PCP yesterday. She took one dose yesterday, but none today because she was feeling nauseous. She denies hematemesis, hematochezia, melena. ER course was notable for: (1) Kayexalate, 30gm/Zofran 4mg (2) blood culture, CXR, abd x-ray (3) 100cc/hr NS Recent Travel: none PAST MEDICAL HISTORY: HTN, anemia, bronchial asthma/COPD, Afib, CHF, IBS, pancreatitis, thyroid nodules, cervical stenosis s/p laminoplasty PAST SURGICAL HISTORY: partial gastrectomy (1987), mitral valve + tricuspid valve repair (2011), cervical laminoplasty (2014) Social History: Smoking:denies Alcohol:occasional, socially Drugs: denies Allergies levofloxacin [From Levaquin] Allergy (Intermediate, Verified 04/05/17 16:19) Hives shellfish derived Allergy (Intermediate, Verified 04/05/17 16:19) Hives Sulfa (Sulfonamide Antibiotics) Allergy (Intermediate, Verified 04/05/17 16:19) Hives HOME MEDICATIONS: Home Medications Medication Instructions Recorded Albuterol Sulfate [Proair Hfa -] 2 inh PO BID 11/09/13 Cholecalciferol (Vitamin D3) 1,000 unit PO DAILY 11/09/13 [Vitamin D3] Fluticasone Propionate [Flovent 110 mcg IH BID 11/09/13 Hfa] Hypromellose 0.5% Opth Soln 1 drop OU Q4H PRN #0 drops 11/24/13 [Artificial Tears] Levothyroxine [Synthroid -] 88 mcg PO ASDIR 02/22/17 Lipase/Protease/Amylase [Pancreaze 1 each PO TIDCM 02/22/17 2,600 Unit Cap] Rifaximin [Xifaxan -] 550 mg PO BID 02/22/17 Acetaminophen [Tylenol 1,000 mg PO Q6H PRN 02/23/17 .Extra-Strength -] Amiodarone HCl [Cordarone -] 200 mg PO DAILY #30 tablet 02/27/17 Apixaban [Eliquis -] 2.5 mg PO BID tablet 02/27/17 Nebivolol HCl [Bystolic] 5 mg PO ASDIR 04/05/17 Nitrofurantoin Macrocrystal 100 mg PO BID 04/05/17 [Nitrofurantoin] Olmesartan Medoxomil 40 mg PO DAILY 04/05/17 REVIEW OF SYSTEMS CONSTITUTIONAL: Present: loss of appetite Absent: fever, chills, diaphoresis HEENT: Absent: rhinorrhea, nasal congestion, throat pain, throat swelling, mouth swelling, eye pain, visual changes CARDIOVASCULAR: Absent: chest pain, syncope, palpitations, irregular heart rate, lightheadedness , peripheral edema RESPIRATORY: Absent: cough, shortness of breath, dyspnea with exertion, orthopnea, wheezing, stridor, hemoptysis GASTROINTESTINAL: Present: abdominal pain, nausea, vomiting, diarrhea Absent: abdominal distension, constipation, melena, hematochezia GENITOURINARY: Present: hesitancy, incomplete voiding Absent: dysuria, frequency, urgency, hematuria, flank pain, genital pain MUSCULOSKELETAL: Absent: myalgia, arthralgia, joint swelling, back pain, neck pain SKIN: Absent: rash, itching, pallor NEUROLOGIC: Absent: headache, focal weakness or paresthesias, dizziness, unsteady gait, seizure, mental status changes, bladder or bowel incontinence PSYCHIATRIC: Absent: anxiety, depression. PHYSICAL EXAMINATION Vital Signs - 24 hr 04/05/17 16:17 Temperature 97.5 F L Pulse Rate 54 L Respiratory 18 Rate Blood Pressure 102/65 O2 Sat by Pulse 100 Oximetry (%) GENERAL: Awake, alert, and fully oriented, in no acute distress. HEAD: Normal with no signs of trauma. EYES: Pupils equal, round and reactive to light, extraocular movements intact, sclera anicteric, conjunctiva clear. No lid lag. NECK: Normal range of motion, supple without lymphadenopathy, JVD, or masses. Thyroid nodule noted on R side. LUNGS: Breath sounds equal, clear to auscultation bilaterally. No wheezes, and no crackles. No accessory muscle use. HEART: Bradycardia, Regular rhythm, normal S1 and S2 without murmur, rub or gallop. ABDOMEN: Midline/suprapubic tenderness elicited upon palpation, soft, not distended, normoactive bowel sounds, no guarding, no rebound, no masses. LOWER EXTREMITIES: 2+ pulses, warm, well-perfused. No calf tenderness. No peripheral edema. NEUROLOGICAL: Normal speech. PSYCHIATRIC: Cooperative. Good eye contact. Appropriate mood and affect. SKIN: Warm, dry, decreased turgor, no rashes or lesions noted. Laboratory Results - last 24 hr 04/05/17 04/05/17 04/05/17 17:23 17:23 18:37 WBC 7.7 RBC 4.09 Hgb 12.7 Hct 37.8 MCV 92.6 MCH 31.1 MCHC 33.6 RDW 14.5 Plt Count 188 MPV 8.5 Neutrophils % 82.9 H D Lymphocytes % 10.4 D Monocytes % 5.4 Eosinophils % 1.0 D Basophils % 0.3 Sodium 134 L Potassium 6.0 H Chloride 106 Carbon Dioxide 19 L D Anion Gap 9 BUN 22 H D Creatinine 1.3 H POC Glucometer 83.01004 Random Glucose 75 Lactic Acid Calcium 9.0 Creatine Kinase 172 Creatine Kinase Index 4.2 CK-MB (CK-2) 7.252 H Troponin I 0.02 Urine Color Urine Appearance Urine pH Urine Protein Urine Glucose (UA) Urine Ketones Urine Blood Urine Nitrite Urine Bilirubin Urine Urobilinogen Ur Leukocyte Esterase Urine RBC Urine WBC Ur Epithelial Cells Urine Mucus 04/05/17 04/05/17 19:05 Unknown WBC RBC Hgb Hct MCV MCH MCHC RDW Plt Count MPV Neutrophils % Lymphocytes % Monocytes % Eosinophils % Basophils % Sodium Potassium Chloride Carbon Dioxide Anion Gap BUN Creatinine POC Glucometer Random Glucose Lactic Acid 0.9 Calcium Creatine Kinase Creatine Kinase Index CK-MB (CK-2) Troponin I Urine Color Ltyellow Urine Appearance Clear Urine pH 5.0 Urine Protein Negative Urine Glucose (UA) Negative Urine Ketones Trace H Urine Blood Negative Urine Nitrite Negative Urine Bilirubin Negative Urine Urobilinogen Negative Ur Leukocyte Esterase Trace Urine RBC 1 Urine WBC 3 Ur Epithelial Cells Rare Urine Mucus Rare ASSESSMENT/PLAN: 81 y.o. F w/ PMH of HTN, aFib, anemia, asthma/COPD, pancreatitis, thyroid nodules, IBS presented to the ED for diarrhea and abdominal pain, admitted to telemetry for hyperkalemia and bradycardia. 1) Hyperkalemia: most likely due to ARB vs ARTUR - cont to trend, Kayexalate 30gm given in ED, will reasses with new labs - hold Olmesartan tonight - cont hydration (2L NS max) 2) Bradycardia: most likely due to nebivolol + amiodarone vs dehydration vs CHF - hold beta neda, cont amiodarone - Dr. Mcpherson consulted, possible pacemaker placement (NPO after midnight) - vitals q4h - ECHO done 02/26/17 during last admission, LVEF severely reduced 3) Abd pain: most likely due to IBS flare-up vs pancreatitis vs UTI vs SBO - SBO r/o (negative normal abd x-ray) - lipase level added to previous blood work - UTI not likely due to U/A negative in ED, d/c macrobid (from PCP, started yesterday only took once dose) - cont hydration 4) aFib: - cont apixaban 2.5mg BID - tele monitoring 5) HTN: - hold ARB and BB, monitor BP overnight 6) asthma/COPD: - cont home albuterol/fluticasone as needed 7) Thyroid nodules - cont home synthroid 88mcg - ordered TSH level to eval for any hypo/hyperthyroid secondary to amiodarone 8) F/E/N: - Fluids: 2L NS max at 100mL/hr (orders to d/c fluids after 2 L) - Electrolytes: hyperkalemia plan as above - Nutrition: sodium controlled diet, NPO after midnight 9) DVT prophylaxis: - b/l SCDs - cont apixaban Visit type - Emergency Visit Emergency Visit: Yes Care time: The patient presented to the Emergency Department on the above date and was hospitalized for further evaluation of their emergent condition. - New Patient This patient is new to me today: Yes Date on this admission: 04/05/17 - Critical Care Critical Care patient: No
[2017-04-05] MEDS ORDERED: SODIUM POLYSTYRENE SULFONATE 15 GM/60 ML BOTTLE ONE (21:54)
[2017-04-05] MEDS ORDERED: PATIENT'S OWN MEDICATION (NON-FORMULARY) (Fluticasone Propionate [Flovent Hfa] 110 MCG) IH SCH (22:00)
[2017-04-05] MEDS: RIFAXIMIN 550 MG TABLET (UD) PO SCH (22:57)
[2017-04-05] MEDS: APIXABAN 2.5 MG TABLET PO SCH (22:57)
[2017-04-05] MEDS: ALBUTEROL SO4 6.7 GM HFA INHALER IH SCH (22:57)
[2017-04-06 00:24] LABS: ALBUMIN 4.2 g/dl (3.4-5.0); ANION GAP 10 (8-16); CALCIUM 9.5 mg/dL (8.5-10.1); CO2 22 mmol/L (21-32); CREATININE 1.5 mg/dL (0.55-1.02); GLUCOSE,RANDOM 119 mg/dL (74-106); SGOT/AST 31 U/L (15-37); SGPT/ALT 38 U/L (12-78); TOT PROT 8.1 g/dl (6.4-8.2)
[2017-04-06 00:26] LABS: ALK PHOS 69 U/L (45-117); CPK 190 IU/L (26-192); TROPONIN I 0.02 ng/ml (0.00-0.05)
[2017-04-06 00:57] LABS: FREE T4 1.21 ng/dl (0.76-1.46); THYROID STIMULATING HORMONE 16.1 uIU/ml (0.358-3.74)
[2017-04-06] MEDS: SODIUM CHLORIDE 1,000 ML IV SCH ×3 (03:16→22:25)
[2017-04-06 04:44] VITALS: BMI 17.9
[2017-04-06] MEDS: LEVOTHYROXINE NA 88 MCG TABLET (FP) PO SCH (06:43)
[2017-04-06 07:30] LABS: BASOPHIL 0.4 % (0-2.0); EOSINOPHIL 1.8 % (0-4.5); MCH 30.7 pg (25.7-33.7); MCHC 32.8 g/dl (32.0-36.0); MEAN CELL VOLUME 93.7 fl (80-96); MEAN PLT VOLUME 8.4 fl (7.5-11.1); NEUTROPHILS 69.7 % (42.8-82.8); PLATELET COUNT 168 K/MM3 (134-434); RDW 14.5 % (11.6-15.6); WHITE BLOOD COUNT 6.5 K/mm3 (4.0-10.0)
[2017-04-06] MEDS: [UNRECOGNIZED DRUG - OTHER] PO SCH ×3 (08:00→17:14)
[2017-04-06] MEDS: PANCRELIPASE PO SCH ×3 (08:00→17:14)
[2017-04-06 08:03] LABS: ANION GAP 6 (8-16); CALCIUM 8.1 mg/dL (8.5-10.1); CO2 22 mmol/L (21-32); CREATININE 1.2 mg/dL (0.55-1.02); GLUCOSE,RANDOM 62 mg/dL (74-106); MAGNESIUM 1.6 mg/dL (1.8-2.4)
[2017-04-06] MEDS ORDERED: PT OWN MED DRAWER 7, Y5N ONE ×3 (09:13→22:17)
--- NOTE | 2017-04-06 09:15 | CON.CARD ---
Consult Consult Specialty:: Cardiology Referred by:: Dr. Rocha Reason for Consultation:: Cardiac evaluation - History of Present Illness Chief Complaint: Diarrhea and vomiting History of Present Illness: Patient is an 81 year old female well known to us (sees Dr. 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 Recently, patient was seen in the office and medications have been adjusted, but now with current symptoms, she also presented with hyperkalemia and mildly elevated creatinine. Monitor and ECG reveals sinus bradycardia in the 40's. Patient has cardiomyopathy with LVEF 25- 30% and history of paroxysmal atrial fibrillation now remaining in sinus rhythm and is on Amiodarone. Patient had a PADMINI mediated cardioversion. Currently, she denies chest pain, shortness of breath or palpitations. She denies paroxysmal nocturnal dyspnea or orthopnea. She denies fever or chills. She denies headache or lightheadedness. She appears comfortable this am. She was treated with Kayexalate for hyperkalemia. Patient also has been on Aldactone which was recently increased to twice a day and patient was given Bystolic and Benicar instead of Metoprolol (this was done in the office last week). Cardiology consultation was called for further evaluation - History Source History Provided By: Patient, Medical Record Limitations to Obtaining History: No Limitations - Past Medical History Cardio/Vascular: Yes: AFIB, CHF (Cardiomyopathy with low LVEF), HTN, Hyperlipdemia, Other (s/p MVR) Pulmonary: Yes: Asthma Gastrointestinal: Yes: Irritable Bowel Disease Endocrine: Yes: Hypothyroidism, Other (thyroid nodules) - Past Surgical History Past Surgical History: Yes: None (Mitral valve repair) - Alcohol/Substance Use Hx Alcohol Use: No History of Substance Use: reports: None - Smoking History Smoking history: Never smoked Have you smoked in the past 12 months: No - Social History ADL: Independent History of Recent Travel: No Home Medications - Allergies Allergies/Adverse Reactions: Allergies Allergy/AdvReac Type Severity Reaction Status Date / Time levofloxacin [From Levaquin] Allergy Intermediate Hives Verified 04/05/17 16:19 shellfish derived Allergy Intermediate Hives Verified 04/05/17 16:19 Sulfa (Sulfonamide Allergy Intermediate Hives Verified 04/05/17 16:19 Antibiotics) - Home Medications Home Medications: Ambulatory Orders Albuterol Sulfate [Proair Hfa -] 2 inh PO BID 11/09/13 Cholecalciferol (Vitamin D3) [Vitamin D3] 1,000 unit PO DAILY 11/09/13 Fluticasone Propionate [Flovent Hfa] 110 mcg IH BID 11/09/13 Hypromellose 0.5% Opth Soln [Artificial Tears] 1 drop OU Q4H PRN #0 drops Levothyroxine [Synthroid -] 88 mcg PO ASDIR 02/22/17 Lipase/Protease/Amylase [Pancreaze Dr 2,600 Unit Cap] 1 each PO TIDCM 02/22/17 Rifaximin [Xifaxan -] 550 mg PO BID 02/22/17 Acetaminophen [Tylenol .Extra-Strength -] 1,000 mg PO Q6H PRN 02/23/17 Amiodarone HCl [Cordarone -] 200 mg PO DAILY #30 tablet 02/27/17 Apixaban [Eliquis -] 2.5 mg PO BID tablet 02/27/17 Nebivolol HCl [Bystolic] 5 mg PO ASDIR 04/05/17 Nitrofurantoin Macrocrystal [Nitrofurantoin] 100 mg PO BID 04/05/17 Olmesartan Medoxomil 40 mg PO DAILY 04/05/17 Review of Systems - Review of Systems Constitutional: denies: Chills, Fever Cardiovascular: denies: Chest Pain, Palpitations, Shortness of Breath Respiratory: denies: Cough, Hemoptysis, Orthopnea, PND, SOB, SOB on Exertion Gastrointestinal: reports: Abdominal Pain, Diarrhea, Nausea, Vomiting. denies: Melena, Rectal Bleeding Neurological: reports: Weakness. denies: Dizziness, Headache, Seizure, Syncope , Unsteady Gait Vital Signs: Vital Signs Temperature 97.6 F 04/06/17 04:00 Pulse Rate 56 L 04/06/17 04:00 Respiratory Rate 18 04/06/17 04:00 Blood Pressure 140/57 04/06/17 04:00 O2 Sat by Pulse Oximetry (%) 100 04/06/17 03:00 Neck: Yes: Supple Respiratory: Yes: CTA Bilaterally Gastrointestinal: Yes: Normal Bowel Sounds, Soft. No: Tenderness Cardiovascular: Yes: Regular Rate and Rhythm, Bradycardia JVD: No Carotid Bruit: No PMI: Non-Displaced Heart Sounds: Yes: S1, S2 Murmur: Yes: Systolic Murmur, Grade 1 Edema: No - Other Data Labs, Other Data: CBC, BMP 04/06/17 05:35 04/06/17 05:35 Troponin, BNP 04/05/17 23:22 Troponin I 0.02 Laboratory Results - last 24 hr 04/05/17 04/05/17 04/05/17 17:00 17:23 17:23 WBC 7.7 RBC 4.09 Hgb 12.7 Hct 37.8 MCV 92.6 MCH 31.1 MCHC 33.6 RDW 14.5 Plt Count 188 MPV 8.5 Neutrophils % 82.9 H D Lymphocytes % 10.4 D Monocytes % 5.4 Eosinophils % 1.0 D Basophils % 0.3 Sodium 134 L Potassium 6.0 H Chloride 106 Carbon Dioxide 19 L D Anion Gap 9 BUN 22 H D Creatinine 1.3 H Creat Clearance w eGFR POC Glucometer Random Glucose 75 Lactic Acid Calcium 9.0 Magnesium Total Bilirubin AST ALT Alkaline Phosphatase Creatine Kinase 172 Creatine Kinase Index 4.2 CK-MB (CK-2) 7.252 H Troponin I 0.02 Total Protein Albumin Lipase 179 TSH Free T4 Urine Color Urine Appearance Urine pH Ur Specific [place] Urine Protein Urine Glucose (UA) Urine Ketones Urine Blood Urine Nitrite Urine Bilirubin Urine Urobilinogen Ur Leukocyte Esterase Urine RBC Urine WBC Ur Epithelial Cells Urine Mucus 04/05/17 04/05/17 04/05/17 18:37 19:05 23:22 WBC RBC Hgb Hct MCV MCH MCHC RDW Plt Count MPV Neutrophils % Lymphocytes % Monocytes % Eosinophils % Basophils % Sodium 140 Potassium 4.5 D Chloride 108 H Carbon Dioxide 22 Anion Gap 10 BUN 21 H Creatinine 1.5 H Creat Clearance w eGFR 33.25 POC Glucometer 83.71308 Random Glucose 119 H D Lactic Acid Calcium 9.5 Magnesium Total Bilirubin 1.0 D AST 31 ALT 38 Alkaline Phosphatase 69 Creatine Kinase 190 Creatine Kinase Index 3.7 CK-MB (CK-2) 7.118 H Troponin I 0.02 Total Protein 8.1 Albumin 4.2 Lipase TSH Free T4 Urine Color Ltyellow Urine Appearance Clear Urine pH 5.0 Ur Specific [place] <= 1.005 Urine Protein Negative Urine Glucose (UA) Negative Urine Ketones Trace H Urine Blood Negative Urine Nitrite Negative Urine Bilirubin Negative Urine Urobilinogen Negative Ur Leukocyte Esterase Trace Urine RBC 1 Urine WBC 3 Ur Epithelial Cells Rare Urine Mucus Rare 04/05/17 04/05/17 04/06/17 23:22 Unknown 05:35 WBC RBC Hgb Hct MCV MCH MCHC RDW Plt Count MPV Neutrophils % Lymphocytes % Monocytes % Eosinophils % Basophils % Sodium 142 Potassium 5.2 H Chloride 114 H Carbon Dioxide 22 Anion Gap 6 L BUN 19 H Creatinine 1.2 H Creat Clearance w eGFR POC Glucometer Random Glucose 62 L D Lactic Acid 0.9 Calcium 8.1 L Magnesium 1.6 L D Total Bilirubin AST ALT Alkaline Phosphatase Creatine Kinase Creatine Kinase Index CK-MB (CK-2) Troponin I Total Protein Albumin Lipase TSH 16.10 H D Free T4 1.21 Urine Color Urine Appearance Urine pH Ur Specific [place] Urine Protein Urine Glucose (UA) Urine Ketones Urine Blood Urine Nitrite Urine Bilirubin Urine Urobilinogen Ur Leukocyte Esterase Urine RBC Urine WBC Ur Epithelial Cells Urine Mucus 04/06/17 05:35 WBC 6.5 RBC 3.72 Hgb 11.5 Hct 34.9 MCV 93.7 MCH 30.7 MCHC 32.8 RDW 14.5 Plt Count 168 MPV 8.4 Neutrophils % 69.7 Lymphocytes % 18.1 D Monocytes % 10.0 D Eosinophils % 1.8 Basophils % 0.4 Sodium Potassium Chloride Carbon Dioxide Anion Gap BUN Creatinine Creat Clearance w eGFR POC Glucometer Random Glucose Lactic Acid Calcium Magnesium Total Bilirubin AST ALT Alkaline Phosphatase Creatine Kinase Creatine Kinase Index CK-MB (CK-2) Troponin I Total Protein Albumin Lipase TSH Free T4 Urine Color Urine Appearance Urine pH Ur Specific [place] Urine Protein Urine Glucose (UA) Urine Ketones Urine Blood Urine Nitrite Urine Bilirubin Urine Urobilinogen Ur Leukocyte Esterase Urine RBC Urine WBC Ur Epithelial Cells Urine Mucus Sinus bradycardia in 40's Imaging - Results Chest X-ray: Report Reviewed (Unremarkable) EKG: Report Reviewed Problem List - Problems (1) Bradycardia Code(s): R00.1 - BRADYCARDIA, UNSPECIFIED (2) Hyperkalemia Code(s): E87.5 - HYPERKALEMIA (3) Acute on chronic systolic (congestive) heart failure Code(s): I50.23 - ACUTE ON CHRONIC SYSTOLIC (CONGESTIVE) HEART FAILURE (4) Asthma Code(s): J45.909 - UNSPECIFIED ASTHMA, UNCOMPLICATED Qualifiers: Asthma severity: mild intermittent (5) Atrial fibrillation Code(s): I48.91 - UNSPECIFIED ATRIAL FIBRILLATION Qualifiers: Atrial fibrillation type: paroxysmal Qualified Code(s): I48.0 - Paroxysmal atrial fibrillation (6) Cardiomyopathy Code(s): I42.9 - CARDIOMYOPATHY, UNSPECIFIED Qualifiers: Cardiomyopathy type: unspecified Qualified Code(s): I42.9 - Cardiomyopathy, unspecified (7) HTN (hypertension) Code(s): I10 - ESSENTIAL (PRIMARY) HYPERTENSION Qualifiers: Hypertension type: essential hypertension Qualified Code(s): I10 - Essential (primary) hypertension (8) Hypothyroidism Code(s): E03.9 - HYPOTHYROIDISM, UNSPECIFIED Qualifiers: Hypothyroidism type: unspecified Qualified Code(s): E03.9 - Hypothyroidism, unspecified (9) IBS (irritable bowel syndrome) Code(s): K58.9 - IRRITABLE BOWEL SYNDROME WITHOUT DIARRHEA (10) S/P mitral valve repair Code(s): Z98.890 - OTHER SPECIFIED POSTPROCEDURAL STATES (11) S/P tricuspid valve repair Code(s): Z98.890 - OTHER SPECIFIED POSTPROCEDURAL STATES Assessment/Plan 1. Diarrhea and vomiting - dehydration and hyperkalemia 2. Dilated cardiomyopathy (probably non-ischemic) - likely due to tachycardia mediated prior to the cardioversion 3. Paroxysmal atrial fibrillation s/p PADMINI mediated synchronized cardioversion 4. HTN 5. Hypercholesterolemia 6. Hypothyroidism 7. Bronchial asthma 8. History of irritable bowel PLAN: 1. Continue Eliquis 2. Continue Amiodarone with caution 3. Beta neda being held as well Benicar being held due to hyperkalemia 4. Hold Aldactone and monitor electrolytes (K level) and renal function 5. Continue IV hydration 6. No need for pacemaker at this time, but LVEF is to be followed, further cardiac evaluation including cardiac catheterization at some point and to assess whether she would need ICD for primary prophylaxis. Further plans are to follow Willard Grissom MD
--- NOTE | 2017-04-06 09:30 | EKG ---
Test Reason : Blood Pressure : / mmHG Vent. Rate : 045 BPM Atrial Rate : 045 BPM P-R Int : 168 ms QRS Dur : 146 ms QT Int : 532 ms P-R-T Axes : 086 -51 -25 degrees QTc Int : 460 ms SINUS BRADYCARDIA RIGHT BUNDLE BRANCH BLOCK LEFT ANTERIOR FASCICULAR BLOCK BIFASCICULAR BLOCK MINIMAL VOLTAGE CRITERIA FOR LVH, MAY BE NORMAL VARIANT ABNORMAL ECG Confirmed by NBA SMITH, ALEJANDRA ([id number]) on 04/06/2017 9:30:15 AM Referred By: Confirmed By:ALEJANDRA ARANGO MD
[2017-04-06] MEDS: CHOLECALCIFEROL (VITAMIN D3) 1,000 UNIT TABLET (FP) PO SCH (10:18)
[2017-04-06] MEDS: AMIODARONE HCL 200 MG TABLET (FP) PO SCH (10:18)
[2017-04-06] MEDS: APIXABAN 2.5 MG TABLET PO SCH ×2 (10:18→22:24)
[2017-04-06] MEDS: RIFAXIMIN 550 MG TABLET (UD) PO SCH ×2 (10:19→22:24)
[2017-04-06] MEDS ORDERED: MAGNESIUM SULF 50% (8.12 MEQ/2 ML-1 GM VIAL) IVPB ONE (11:41)
--- NOTE | 2017-04-06 12:01 | PN ---
Progress Note, Physician Chief Complaint: Ms Duran says she is feeling better today. Diarrhea has resolved. No longer having abdominal pain. Tolerated diet today without difficulty. No cp or sob. - Current Medication List Current Medications: Active Medications Acetaminophen (Tylenol -) 650 mg PO Q4H PRN PRN Reason: FEVER OR PAIN Albuterol Sulfate (Ventolin Hfa Inhaler -) 2 puff IH BID [facility] Last Admin: 04/05/17 22:57 Dose: 2 puff Amiodarone HCl (Cordarone -) 200 mg PO DAILY [facility] Last Admin: 04/06/17 10:18 Dose: 200 mg Apixaban (Eliquis -) 2.5 mg PO BID [facility] Last Admin: 04/06/17 10:18 Dose: 2.5 mg Artificial Tears (Artificial Tears) 1 drop OU Q4H PRN PRN Reason: DRY EYES Last Admin: 04/05/17 22:56 Dose: 1 drop Cholecalciferol (Vitamin D3 -) 1,000 unit PO DAILY [facility] Last Admin: 04/06/17 10:18 Dose: 1,000 unit Sodium Chloride (Normal Saline -) 1,000 mls @ 100 mls/hr IV ASDIR [facility] Stop: 04/07/17 03:29 Last Admin: 04/06/17 03:16 Dose: 100 mls/hr Levothyroxine Sodium (Synthroid -) 88 mcg PO DAILY@0700 [facility] Last Admin: 04/06/17 06:43 Dose: 88 mcg Zenpep (N/F) (Pancrelipase) 1 each PO TIDCM [facility] Non-Formulary Medication (Fluticasone Propionate [Flovent Hfa]) 220 mcg IH BID [facility] Rifaximin (Xifaxan -) 550 mg PO BID [facility] Last Admin: 04/06/17 10:19 Dose: 550 mg - Objective Vital Signs: Vital Signs Temperature 36.4 C 04/06/17 04:00 Pulse Rate 56 L 04/06/17 04:00 Respiratory Rate 18 04/06/17 04:00 Blood Pressure 140/57 04/06/17 04:00 O2 Sat by Pulse Oximetry (%) 100 04/06/17 03:00 Constitutional: Yes: Well Nourished, No Distress, Calm Cardiovascular: Yes: Regular Rate and Rhythm, Murmur. No: Gallop, Rub Respiratory: Yes: Regular, CTA Bilaterally. No: Rales, Rhonchi, Wheezes Gastrointestinal: Yes: Normal Bowel Sounds, Soft, Distention. No: Tenderness Extremities: Yes: WNL Edema: No Labs: CBC, BMP 04/06/17 05:35 04/06/17 05:35 Problem List - Problems (1) IBS (irritable bowel syndrome) Assessment/Plan: -suspect exacerbated by macrobid -currently resolved -does not appear toxic -tolerating diet currently -continue home medication -if recurs, will obtain ultrasound vs CT scan and stool studies Code(s): K58.9 - IRRITABLE BOWEL SYNDROME WITHOUT DIARRHEA Qualifiers: Irritable bowel syndrome type: with diarrhea Qualified Code(s): K58.0 - Irritable bowel syndrome with diarrhea (2) Bradycardia Assessment/Plan: -appreciate cardiology assistance -beta neda stopped -continue telemetry monitoring -on amiodarone for atrial fibrillation Code(s): R00.1 - BRADYCARDIA, UNSPECIFIED (3) Hyperkalemia Assessment/Plan: -received kayexelate yesterday -potassium 5.2 -continue hydration -aldactone discontinued -benicar held as well secondary to this Code(s): E87.5 - HYPERKALEMIA (4) Atrial fibrillation Assessment/Plan: -sounds in sinus rhythm on exam today -continue amiodarone and eliquis Code(s): I48.91 - UNSPECIFIED ATRIAL FIBRILLATION Qualifiers: Atrial fibrillation type: paroxysmal Qualified Code(s): I48.0 - Paroxysmal atrial fibrillation (5) CHF (congestive heart failure) Assessment/Plan: -not in exacerbation -hydration Code(s): I50.9 - HEART FAILURE, UNSPECIFIED Qualifiers: Congestive heart failure type: systolic Congestive heart failure chronicity: chronic Qualified Code(s): I50.22 - Chronic systolic ( congestive) heart failure (6) HTN (hypertension) Assessment/Plan: -controlled Code(s): I10 - ESSENTIAL (PRIMARY) HYPERTENSION Qualifiers: Hypertension type: essential hypertension Qualified Code(s): I10 - Essential (primary) hypertension (7) Hypothyroidism Assessment/Plan: -elevated TSH but normal free T4 -patient with transient central hypothyroidism secondary to above stress -no need to adjust synthroid secondary to this but will benefit from outpatient check after recovery -continue synthroid current dose Code(s): E03.9 - HYPOTHYROIDISM, UNSPECIFIED Qualifiers: Hypothyroidism type: unspecified Qualified Code(s): E03.9 - Hypothyroidism, unspecified
[2017-04-06] MEDS: ALBUTEROL SO4 6.7 GM HFA INHALER IH SCH ×2 (13:12→22:24)
[2017-04-06] MEDS: LORATADINE 10 MG TABLET PO SCH (16:30)
[2017-04-06] MEDS: FLUTICASONE PROPIONATE 220 MCG IH SCH (22:30)
[2017-04-07] MEDS: LEVOTHYROXINE NA 88 MCG TABLET (FP) PO SCH (06:51)
[2017-04-07 07:02] LABS: BASOPHIL 0.5 % (0-2.0); EOSINOPHIL 5.6 % (0-4.5); MCH 30.9 pg (25.7-33.7); MCHC 33.2 g/dl (32.0-36.0); MEAN CELL VOLUME 93.1 fl (80-96); NEUTROPHILS 62.9 % (42.8-82.8); PLATELET COUNT 153 K/MM3 (134-434); RDW 14.4 % (11.6-15.6); WHITE BLOOD COUNT 5.3 K/mm3 (4.0-10.0)
[2017-04-07 07:13] LABS: ANION GAP 6 (8-16); CALCIUM 7.4 mg/dL (8.5-10.1); CO2 23 mmol/L (21-32); GLUCOSE,RANDOM 87 mg/dL (74-106); MAGNESIUM 1.7 mg/dL (1.8-2.4); PHOSPHOROUS 2.3 mg/dL (2.5-4.9)
[2017-04-07] MEDS ORDERED: PT OWN MED DRAWER 7, Y5N ONE ×2 (08:34→20:30)
[2017-04-07] MEDS: PANCRELIPASE PO SCH ×3 (08:37→17:14)
[2017-04-07] MEDS: [UNRECOGNIZED DRUG - OTHER] PO SCH ×3 (08:37→17:14)
[2017-04-07] MEDS: FLUTICASONE PROPIONATE 220 MCG IH SCH (09:25)
[2017-04-07] MEDS: CHOLECALCIFEROL (VITAMIN D3) 1,000 UNIT TABLET (FP) PO SCH (09:28)
[2017-04-07] MEDS: RIFAXIMIN 550 MG TABLET (UD) PO SCH ×2 (09:28→21:00)
[2017-04-07] MEDS: AMIODARONE HCL 200 MG TABLET (FP) PO SCH (09:28)
[2017-04-07] MEDS: APIXABAN 2.5 MG TABLET PO SCH ×2 (09:28→21:00)
[2017-04-07] MEDS: ALBUTEROL SO4 6.7 GM HFA INHALER IH SCH ×2 (09:29→21:00)
[2017-04-07] MEDS: LORATADINE 10 MG TABLET PO SCH (09:29)
--- NOTE | 2017-04-07 09:51 | PN ---
Progress Note (short form) - Note Progress Note: Chief Complaint: Events noted, notes reviewed. Dyspnea is persistent with ambulation, denies any chest pain, remains in sinus rhythm, sinus bradycardia off of B-Brenda therapy, heart rate increased to 60's with ambulation from baseline of 40's History of Present Illness: Seen and examined on telemetry. Events noted, notes reviewed. 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, Tricuspid annular ring with mild TR Patient ideally should be resumed on B-Brenda for management of her LV dysfunction with congestive heart failure, since limiting factor is bradycardia , pacing would be indicated, plan to repeat echocardiography this coming week as outpatient and if LV EF remains < 35% to proceed with ICD implant, discussed in detail with the patient Plan to resume ARBS and diuretics with caution today - Current Medication List Current Medications Acetaminophen (Tylenol -) 650 mg PO Q4H PRN PRN Reason: FEVER OR PAIN Albuterol Sulfate (Ventolin Hfa Inhaler -) 2 puff IH BID [facility] Last Admin: 04/07/17 09:29 Dose: 2 puff Amiodarone HCl (Cordarone -) 200 mg PO DAILY [facility] Last Admin: 04/07/17 09:28 Dose: 200 mg Apixaban (Eliquis -) 2.5 mg PO BID [facility] Last Admin: 04/07/17 09:28 Dose: 2.5 mg Artificial Tears (Artificial Tears) 1 drop OU Q4H PRN PRN Reason: DRY EYES Last Admin: 04/05/17 22:56 Dose: 1 drop Cholecalciferol (Vitamin D3 -) 1,000 unit PO DAILY [facility] Last Admin: 04/07/17 09:28 Dose: 1,000 unit Levothyroxine Sodium (Synthroid -) 88 mcg PO DAILY@0700 [facility] Last Admin: 04/07/17 06:51 Dose: 88 mcg Loratadine (Claritin -) 10 mg PO DAILY [facility] Last Admin: 04/07/17 09:29 Dose: 10 mg Mometasone Furoate (Asmanex 220mcg -) 2 puff IH HS [facility] Zenpep (N/F) (Pancrelipase) 1 each PO TIDCM [facility] Last Admin: 04/07/17 08:37 Dose: 1 each Rifaximin (Xifaxan -) 550 mg PO BID [facility] Last Admin: 04/07/17 09:28 Dose: 550 mg Review of Systems Cardiovascular: As noted above Respiratory: denies: Cough or Sputum Production Gastrointestinal: denies: Nausea, Vomiting, Diarrhea, Constipation or Abdominal Discomfort Musculoskeletal: No Symptoms Reported Endocrine: No Symptoms Reported - Objective Vital Signs: Last Vital Signs Temp Pulse Resp BP Pulse Ox 98 F 54 L 18 116/49 100 04/07/17 09:31 04/07/17 09:31 04/07/17 09:31 04/07/17 09:31 04/06/17 21:00 Intake & Output 04/04/17 04/05/17 04/06/17 04/07/17 23:59 23:59 23:59 23:59 Intake Total 2200 150 Balance 2200 150 Weight 97 lb 98 lb 2 oz 97 lb Constitutional: No Distress, Calm, Thin Neck: Supple Negative JVD Cardiovascular: S1 S2 Irregularly Irregular Grade 2/6 Murmur Respiratory: Clear to A&P Bilaterally Gastrointestinal: Soft Benign Normal Bowel Sounds Ext: No Edema Labs: CBC, BMP 04/07/17 06:00 04/07/17 06:00 Assessment/Plan ASSESSMENT: 1. Paroxysmal atrial fibrillation, post PADMINI guided recent cardioversion [id number] score of 5 on NOAC's, currently in sinus rhythm with probable sinus node dysfunction, symptomatic bradycardia 2. 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 Tricuspid valve repair for TR (annuloplasty ring) 3. Newly diagnosed dilated cardiomyopathy (LVEF 25-30%) suspect tachycardia- mediated cardiomyopathy with acute on chronic LV failure, class I-II NYHA classification LV congestive heart failure, compensated/euvolemic 4. HTN 5. Hypothyroidism 6. Asthma 7. Vomiting, diarrhea, dehydration with hyperkalemia, resolved etiology probably multi-factorial 8. Anemia PLAN: 1. Continue to hold off Aldactone resumption 2. Resume ARBS with caution and close monitoring of renal function, Diovan 80 mg daily 3. Continue Amiodarone 4. Continue Eliquis considering the above noted [id number] score of 5, therapy should be continued indefinitely unless it is absolutely contraindicated 5. Add Lasix with caution and close monitoring of renal function, Lasix 20 mg daily 6. As outlined above patient ideally should be resumed on B-Brenda for management of her LV dysfunction with congestive heart failure, since limiting factor is bradycardia, pacing would be indicated, plan to repeat echocardiography this coming week as outpatient and if LV EF remains < 35% to proceed with ICD implant Linh Barney M.D.
[2017-04-07] MEDS: FUROSEMIDE 20 MG TABLET (FP) PO SCH (10:26)
[2017-04-07] MEDS: VALSARTAN 80 MG TABLET (UD) PO SCH (10:26)
[2017-04-07] MEDS ORDERED: MAGNESIUM OXIDE 400 MG TABLET (FP) PO ONE (11:00)
--- NOTE | 2017-04-07 11:22 | PN ---
Progress Note (short form) - Note Progress Note: Patient seen and examined. Denies chest pain, shortness of breath, palpitation or dizziness. Afebrile. Current Medications Acetaminophen (Tylenol -) 650 mg PO Q4H PRN PRN Reason: FEVER OR PAIN Albuterol Sulfate (Ventolin Hfa Inhaler -) 2 puff IH BID [facility] Last Admin: 04/07/17 09:29 Dose: 2 puff Amiodarone HCl (Cordarone -) 200 mg PO DAILY [facility] Last Admin: 04/07/17 09:28 Dose: 200 mg Apixaban (Eliquis -) 2.5 mg PO BID [facility] Last Admin: 04/07/17 09:28 Dose: 2.5 mg Artificial Tears (Artificial Tears) 1 drop OU Q4H PRN PRN Reason: DRY EYES Last Admin: 04/05/17 22:56 Dose: 1 drop Cholecalciferol (Vitamin D3 -) 1,000 unit PO DAILY [facility] Last Admin: 04/07/17 09:28 Dose: 1,000 unit Furosemide (Lasix -) 20 mg PO DAILY [facility] Last Admin: 04/07/17 10:26 Dose: 20 mg Levothyroxine Sodium (Synthroid -) 88 mcg PO DAILY@0700 [facility] Last Admin: 04/07/17 06:51 Dose: 88 mcg Loratadine (Claritin -) 10 mg PO DAILY [facility] Last Admin: 04/07/17 09:29 Dose: 10 mg Mometasone Furoate (Asmanex 220mcg -) 2 puff IH HS [facility] Zenpep (N/F) (Pancrelipase) 1 each PO TIDCM [facility] Last Admin: 04/07/17 08:37 Dose: 1 each Rifaximin (Xifaxan -) 550 mg PO BID [facility] Last Admin: 04/07/17 09:28 Dose: 550 mg Valsartan (Diovan -) 80 mg PO DAILY [facility] Last Admin: 04/07/17 10:26 Dose: 80 mg - Objective Vital Signs: Vital Signs Period Temp Pulse Resp BP Sys/Valerio Pulse Ox Last 24 Hr 97.6 F-98.2 F 43-54 16-20 103-144/49-70 100 Constitutional: Yes: Well Nourished, No Distress, Calm Cardiovascular: Yes: Regular Rate and Rhythm, Murmur. No: Gallop, Rub Respiratory: Yes: Regular, CTA Bilaterally. No: Rales, Rhonchi, Wheezes Gastrointestinal: Yes: Normal Bowel Sounds, Soft, Distention. No: Tenderness Extremities: Yes: WNL Edema: No Labs: CBC, BMP 04/07/17 06:00 04/07/17 06:00 Problem List - Problems (1) IBS (irritable bowel syndrome) Assessment/Plan: -suspect exacerbated by macrobid -currently resolved -does not appear toxic -tolerating diet currently -continue home medication -if recurs, will obtain ultrasound vs CT scan and stool studies Code(s): K58.9 - IRRITABLE BOWEL SYNDROME WITHOUT DIARRHEA Qualifiers: Irritable bowel syndrome type: with diarrhea Qualified Code(s): K58.0 - Irritable bowel syndrome with diarrhea (2) Bradycardia Assessment/Plan: -appreciate cardiology assistance -beta neda stopped -continue telemetry monitoring -on amiodarone for atrial fibrillation Code(s): R00.1 - BRADYCARDIA, UNSPECIFIED (3) Hyperkalemia Assessment/Plan: - resolved -received kayexelate yesterday -potassium 5.2>4.5 -continue hydration -aldactone discontinued Code(s): E87.5 - HYPERKALEMIA (4) Atrial fibrillation Assessment/Plan: -sounds in sinus rhythm on exam today -continue amiodarone and eliquis Code(s): I48.91 - UNSPECIFIED ATRIAL FIBRILLATION Qualifiers: Atrial fibrillation type: paroxysmal Qualified Code(s): I48.0 - Paroxysmal atrial fibrillation (5) CHF (congestive heart failure) Assessment/Plan: -not in exacerbation -Lasix 20 mg started today. -Cardiology follow up appreciated. Code(s): I50.9 - HEART FAILURE, UNSPECIFIED Qualifiers: Congestive heart failure type: systolic Congestive heart failure chronicity: chronic Qualified Code(s): I50.22 - Chronic systolic ( congestive) heart failure (6) HTN (hypertension) Assessment/Plan: -controlled -Valsartan 80 mg daily started. Code(s): I10 - ESSENTIAL (PRIMARY) HYPERTENSION Qualifiers: Hypertension type: essential hypertension Qualified Code(s): I10 - Essential (primary) hypertension (7) Hypothyroidism Assessment/Plan: -elevated TSH but normal free T4 -patient with transient central hypothyroidism secondary to above stress -no need to adjust synthroid secondary to this but will benefit from outpatient check after recovery -continue synthroid current dose Code(s): E03.9 - HYPOTHYROIDISM, UNSPECIFIED Qualifiers: Hypothyroidism type: unspecified Qualified Code(s): E03.9 - Hypothyroidism, unspecified
[2017-04-07] MEDS: ACETAMINOPHEN 325 MG TABLET (FP) PO PRN (14:26)
[2017-04-07] MEDS ORDERED: MOMETASONE FUROATE 220 MCG/IH INHALER IH SCH (22:00)
[2017-04-08] MEDS: ACETAMINOPHEN 325 MG TABLET (FP) PO PRN (05:46)
[2017-04-08] MEDS: LEVOTHYROXINE NA 88 MCG TABLET (FP) PO SCH (05:59)
[2017-04-08 07:38] LABS: BASOPHIL 0.5 % (0-2.0); EOSINOPHIL 6.8 % (0-4.5); MCHC 33.6 g/dl (32.0-36.0); MEAN CELL VOLUME 92.1 fl (80-96); MEAN PLT VOLUME 8.4 fl (7.5-11.1); NEUTROPHILS 60.3 % (42.8-82.8); PLATELET COUNT 165 K/MM3 (134-434); RDW 14.7 % (11.6-15.6); WHITE BLOOD COUNT 5.5 K/mm3 (4.0-10.0)
[2017-04-08 08:10] LABS: ANION GAP 10 (8-16); CALCIUM 7.7 mg/dL (8.5-10.1); CO2 24 mmol/L (21-32); GLUCOSE,RANDOM 81 mg/dL (74-106)
[2017-04-08] MEDS ORDERED: PT OWN MED DRAWER 7, Y5N ONE ×2 (08:44→10:56)
[2017-04-08] MEDS: PANCRELIPASE PO SCH ×2 (08:45→11:49)
[2017-04-08] MEDS: [UNRECOGNIZED DRUG - OTHER] PO SCH ×2 (08:45→11:49)
[2017-04-08] MEDS: FUROSEMIDE 20 MG TABLET (FP) PO SCH (09:47)
[2017-04-08] MEDS: CHOLECALCIFEROL (VITAMIN D3) 1,000 UNIT TABLET (FP) PO SCH (09:47)
[2017-04-08] MEDS: APIXABAN 2.5 MG TABLET PO SCH (09:47)
[2017-04-08] MEDS: LORATADINE 10 MG TABLET PO SCH (09:47)
[2017-04-08] MEDS: VALSARTAN 80 MG TABLET (UD) PO SCH (09:47)
[2017-04-08] MEDS: AMIODARONE HCL 200 MG TABLET (FP) PO SCH (09:47)
[2017-04-08] MEDS: RIFAXIMIN 550 MG TABLET (UD) PO SCH (09:47)
[2017-04-08] MEDS: ALBUTEROL SO4 6.7 GM HFA INHALER IH SCH (09:48)
[2017-04-08 09:51] VITALS: BP 129/71; PULSE 56; TEMP 98.6
--- NOTE | 2017-04-08 10:13 | PN ---
Progress Note (short form) - Note Progress Note: Chief Complaint: Events noted, notes reviewed. Dyspnea is persistent with ambulation, denies any chest pain, remains in sinus rhythm, sinus bradycardia remains off of B-Brenda therapy History of Present Illness: Seen and examined on telemetry.Events noted, notes reviewed. Dyspnea is persistent with ambulation, denies any chest pain, remains in sinus rhythm, sinus bradycardia remains off of B-Brenda therapy Complaining of vague abdominal discomfort, denies any nause or vomiting Tolerating ARBS and diuretic therapy, will plan to initiate Entresto for management of LV failure Echocardiography performed 02/22/17 in our office revealed severe LV systolic dysfunction, Mitral annular ring with mild MR, Tricuspid annular ring with mild TR As outlined patient ideally should be resumed on B-Brenda for management of her LV dysfunction with congestive heart failure, since limiting factor is bradycardia, pacing would be indicated, plan to repeat echocardiography this coming week as outpatient and if LV EF remains < 35% to proceed with ICD implant , discussed in detail with the patient and her daughter who was contacted via telephone - Current Medication List Current Medications Acetaminophen (Tylenol -) 650 mg PO Q4H PRN PRN Reason: FEVER OR PAIN Last Admin: 04/08/17 05:46 Dose: 650 mg Albuterol Sulfate (Ventolin Hfa Inhaler -) 2 puff IH BID [facility] Last Admin: 04/08/17 09:48 Dose: 2 puff Amiodarone HCl (Cordarone -) 200 mg PO DAILY [facility] Last Admin: 04/08/17 09:47 Dose: 200 mg Apixaban (Eliquis -) 2.5 mg PO BID [facility] Last Admin: 04/08/17 09:47 Dose: 2.5 mg Artificial Tears (Artificial Tears) 1 drop OU Q4H PRN PRN Reason: DRY EYES Last Admin: 04/05/17 22:56 Dose: 1 drop Cholecalciferol (Vitamin D3 -) 1,000 unit PO DAILY [facility] Last Admin: 04/08/17 09:47 Dose: 1,000 unit Furosemide (Lasix -) 20 mg PO DAILY [facility] Last Admin: 04/08/17 09:47 Dose: 20 mg Levothyroxine Sodium (Synthroid -) 88 mcg PO DAILY@0700 [facility] Last Admin: 04/08/17 05:59 Dose: 88 mcg Loratadine (Claritin -) 10 mg PO DAILY [facility] Last Admin: 04/08/17 09:47 Dose: 10 mg Mometasone Furoate (Asmanex 220mcg -) 2 puff IH HS [facility] Last Admin: 04/07/17 21:00 Dose: 2 puff Zenpep (N/F) (Pancrelipase) 1 each PO TIDCM [facility] Last Admin: 04/08/17 08:45 Dose: 1 each Rifaximin (Xifaxan -) 550 mg PO BID [facility] Last Admin: 04/08/17 09:47 Dose: 550 mg Valsartan (Diovan -) 80 mg PO DAILY [facility] Last Admin: 04/08/17 09:47 Dose: 80 mg Review of Systems Cardiovascular: As noted above Respiratory: denies: Cough or Sputum Production Gastrointestinal: denies: Nausea, Vomiting, Diarrhea, Constipation but reports Abdominal Discomfort Musculoskeletal: No Symptoms Reported Endocrine: No Symptoms Reported - Objective Vital Signs: Last Vital Signs Temp Pulse Resp BP Pulse Ox 98.6 F 56 L 17 129/71 98 04/08/17 09:50 04/08/17 09:50 04/08/17 09:50 04/08/17 09:50 04/07/17 21:00 Intake & Output 04/05/17 04/06/17 04/07/17 04/08/17 23:59 23:59 23:59 23:59 Intake Total 2200 720 120 Balance 2200 720 120 Weight 97 lb 98 lb 2 oz 97 lb 98 lb 4 oz Constitutional: No Distress, Calm, Thin Neck: Supple Negative JVD Cardiovascular: S1 S2 Regular Rate Rhythm Grade 1-2/6 Murmur Respiratory: Clear to A&P Bilaterally Gastrointestinal: Soft Benign Normal Bowel Sounds Ext: No Edema Labs: CBC, BMP 04/08/17 06:00 04/08/17 06:00 Asessment/Plan ASSESSMENT: 1. Paroxysmal atrial fibrillation, post PADMINI guided recent cardioversion [id number] score of 5 on NOAC's, currently in sinus rhythm with probable sinus node dysfunction, symptomatic bradycardia 2. 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 Tricuspid valve repair for TR (annuloplasty ring) 3. Newly diagnosed dilated cardiomyopathy (LVEF 25-30%) suspect tachycardia- mediated cardiomyopathy with acute on chronic LV failure, class I-II NYHA classification LV congestive heart failure, compensated/euvolemic 4. HTN 5. Hypothyroidism 6. Asthma 7. Vomiting, diarrhea, dehydration with hyperkalemia, resolved etiology probably multi-factorial 8. Anemia PLAN: 1. Continue Lasix and hold off Aldactone resumption 2. Initiate Entresto with caution and close monitoring of renal function 3. Continue Amiodarone 4. Continue Eliquis considering the above noted [id number] score of 5, therapy should be continued indefinitely unless it is absolutely contraindicated 5. As outlined above patient ideally should be resumed on B-Brenda for management of her LV dysfunction with congestive heart failure, since limiting factor is bradycardia, pacing would be indicated, plan to repeat echocardiography this coming week as outpatient and if LV EF remains < 35% to proceed with ICD implant otherwise PPM Linh Barney M.D.
--- NOTE | 2017-04-08 11:47 | PN ---
Progress Note (short form) - Note Progress Note: Patient seen and examined. Denies nausea, vomiting, abdominal pain. Denies chest pain, shortness of breath, palpitation or dizziness. Afebrile. Cleared from cardiology for discharge. Current Medications Acetaminophen (Tylenol -) 650 mg PO Q4H PRN PRN Reason: FEVER OR PAIN Last Admin: 04/08/17 05:46 Dose: 650 mg Albuterol Sulfate (Ventolin Hfa Inhaler -) 2 puff IH BID [facility] Last Admin: 04/08/17 09:48 Dose: 2 puff Amiodarone HCl (Cordarone -) 200 mg PO DAILY [facility] Last Admin: 04/08/17 09:47 Dose: 200 mg Apixaban (Eliquis -) 2.5 mg PO BID [facility] Last Admin: 04/08/17 09:47 Dose: 2.5 mg Artificial Tears (Artificial Tears) 1 drop OU Q4H PRN PRN Reason: DRY EYES Last Admin: 04/05/17 22:56 Dose: 1 drop Cholecalciferol (Vitamin D3 -) 1,000 unit PO DAILY [facility] Last Admin: 04/08/17 09:47 Dose: 1,000 unit Furosemide (Lasix -) 20 mg PO DAILY [facility] Last Admin: 04/08/17 09:47 Dose: 20 mg Levothyroxine Sodium (Synthroid -) 88 mcg PO DAILY@0700 [facility] Last Admin: 04/08/17 05:59 Dose: 88 mcg Loratadine (Claritin -) 10 mg PO DAILY [facility] Last Admin: 04/08/17 09:47 Dose: 10 mg Mometasone Furoate (Asmanex 220mcg -) 2 puff IH HS [facility] Last Admin: 04/07/17 21:00 Dose: 2 puff Zenpep (N/F) (Pancrelipase) 1 each PO TIDCM [facility] Last Admin: 04/08/17 08:45 Dose: 1 each Rifaximin (Xifaxan -) 550 mg PO BID [facility] Last Admin: 04/08/17 09:47 Dose: 550 mg - Objective Vital Signs: Vital Signs Period Temp Pulse Resp BP Sys/Valerio Pulse Ox Last 24 Hr 97.4 F-98.6 F 41-61 17-20 106-157/57-71 98 Constitutional: Yes: Well Nourished, No Distress, Calm Cardiovascular: Yes: Regular Rate and Rhythm, Murmur. No: Gallop, Rub Respiratory: Yes: Regular, CTA Bilaterally. No: Rales, Rhonchi, Wheezes Gastrointestinal: Yes: Normal Bowel Sounds, Soft, Distention. No: Tenderness Extremities: Yes: WNL Edema: No Labs: CBC, BMP 04/08/17 06:00 04/08/17 06:00 Problem List - Problems (1) IBS (irritable bowel syndrome) Assessment/Plan: -Resolved -does not appear toxic -tolerating diet currently -continue home medication -if recurs, will obtain ultrasound vs CT scan and stool studies Code(s): K58.9 - IRRITABLE BOWEL SYNDROME WITHOUT DIARRHEA Qualifiers: Irritable bowel syndrome type: with diarrhea Qualified Code(s): K58.0 - Irritable bowel syndrome with diarrhea (2) Bradycardia Assessment/Plan: -appreciate cardiology assistance -beta neda stopped -continue telemetry monitoring -on amiodarone for atrial fibrillation Code(s): R00.1 - BRADYCARDIA, UNSPECIFIED (3) Hyperkalemia Assessment/Plan: - resolved -received kayexelate yesterday -potassium 5.2>4.5 -continue hydration -aldactone discontinued Code(s): E87.5 - HYPERKALEMIA (4) Atrial fibrillation Assessment/Plan: -sounds in sinus rhythm on exam today -continue amiodarone and eliquis Code(s): I48.91 - UNSPECIFIED ATRIAL FIBRILLATION Qualifiers: Atrial fibrillation type: paroxysmal Qualified Code(s): I48.0 - Paroxysmal atrial fibrillation (5) CHF (congestive heart failure) Assessment/Plan: -not in exacerbation -Lasix 20 mg started today. -Started on Entresto. -Cardiology follow up appreciated. Code(s): I50.9 - HEART FAILURE, UNSPECIFIED Qualifiers: Congestive heart failure type: systolic Congestive heart failure chronicity: chronic Qualified Code(s): I50.22 - Chronic systolic ( congestive) heart failure (6) HTN (hypertension) Assessment/Plan: -controlled -Patient switched to Entresto. Code(s): I10 - ESSENTIAL (PRIMARY) HYPERTENSION Qualifiers: Hypertension type: essential hypertension Qualified Code(s): I10 - Essential (primary) hypertension (7) Hypothyroidism Assessment/Plan: -Elevated TSH but normal free T4 -patient with transient central hypothyroidism secondary to above stress -no need to adjust synthroid secondary to this but will benefit from outpatient check after recovery -continue synthroid current dose Code(s): E03.9 - HYPOTHYROIDISM, UNSPECIFIED Qualifiers: Hypothyroidism type: unspecified Qualified Code(s): E03.9 - Hypothyroidism, unspecified Patient is stable for discharge. Cleared by cardiology as well. Patient advised to see primary care within 2 weeks of discharge.
--- NOTE | 2017-04-08 11:57 | DS ---
Physical Examination Vital Signs: Vital Signs Temperature 98.6 F 04/08/17 09:50 Pulse Rate 56 L 04/08/17 09:50 Respiratory Rate 17 04/08/17 09:50 Blood Pressure 129/71 04/08/17 09:50 O2 Sat by Pulse Oximetry (%) 98 04/07/17 21:00 Labs: CBC, BMP 04/08/17 06:00 04/08/17 06:00 Discharge Summary Reason For Visit: BRADYCARDIA Current Active Problems Bradycardia (Acute) Hyperkalemia (Acute) Hospital Course: 81 y.o. F w/ PMH of HTN, aFib, anemia, asthma/COPD, pancreatitis, thyroid nodules, IBS presented to the ED for diarrhea and abdominal pain, admitted to telemetry for hyperkalemia and bradycardia. Cardiology consulted. Beta Brenda, Aldactone, Benicar discontinued. Hyperkalemia treated. Abdominal pain and diarrhea resolved. Patient started on Entresto by cardiology. Patient is medically stable for discharge. She is also cleared by cardiology for discharge. Patient strictly advised to follow up with PCP within 7-10 for follow up and repeat labs. Condition: Stable - Instructions Disposition: HOME - Home Medications Comprehensive Discharge Medication List: Ambulatory Orders Albuterol Sulfate [Proair Hfa -] 2 inh PO BID 11/09/13 Cholecalciferol (Vitamin D3) [Vitamin D3] 1,000 unit PO DAILY 11/09/13 Fluticasone Propionate [Flovent Hfa] 220 mcg IH BID 11/09/13 Hypromellose 0.5% Opth Soln [Artificial Tears] 1 drop OU Q4H PRN #0 drops Levothyroxine [Synthroid -] 88 mcg PO ASDIR 02/22/17 Lipase/Protease/Amylase [Pancreaze Dr 2,600 Unit Cap] 1 each PO TIDCM 02/22/17 Rifaximin [Xifaxan -] 550 mg PO BID 02/22/17 Amiodarone HCl [Cordarone -] 200 mg PO DAILY #30 tablet 02/27/17 Apixaban [Eliquis -] 2.5 mg PO BID tablet 02/27/17 Acetaminophen [Tylenol .Regular Strength -] 650 mg PO Q4H PRN #30 tablet Furosemide [Lasix -] 20 mg PO DAILY #30 tablet 04/08/17 Loratadine [Claritin -] 10 mg PO DAILY #30 tablet 04/08/17 Sacubitril/Valsartan [Entresto 49 mg-51 mg Tablet] 1 tab PO BID #30 tablet 04/08
[2017-04-08] MEDS ORDERED: SACUBITRIL/VALSARTAN 49 MG-51 MG TABLET PO SCH (22:00)
== END 2017-04-08 13:56 | disposition home or self-care (01) | DRG 392 ==
LOC: JER 16:07 → JERBED 20:05 → J4S 04-06 02:59
PROVIDERS: ADMIT Internal Medicine; ATTEND Internal Medicine
DX: K58.9 Irritable bowel syndrome, unspecified (principal); I13.0 Hypertensive heart and chronic kidney disease with heart failure and stage 1 through stage 4 chronic kidney disease, or unspecified chronic kidney disease; I50.22 Chronic systolic (congestive) heart failure; I42.0 Dilated cardiomyopathy; R00.1 Bradycardia, unspecified; E87.5 Hyperkalemia; J44.9 Chronic obstructive pulmonary disease, unspecified; J45.909 Unspecified asthma, uncomplicated; E03.9 Hypothyroidism, unspecified; I48.0 Paroxysmal atrial fibrillation; N18.3 Chronic kidney disease, stage 3 (moderate); R19.7 Diarrhea, unspecified; E86.0 Dehydration; D64.9 Anemia, unspecified
CPT/HCPCS: 36415; 71020-TC; 74020-TC; 80048; 80053; 81003; 81015; 82553; 83605; 83690; 83735; 84100; 84439; 84443; 84484; 85025; 87040; 93005; 93010; 99284-25

== ENCOUNTER 2017-06-19 07:41 | Day surgery (SDC) | payer OTHER ==
[2017-06-19] MEDS ORDERED: CYANOCOBALAMIN (VITAMIN B-12) 1000 MCG/1 ML VIAL IM ONE (15:00)
[2017-06-19] MEDS ORDERED: IRON SUCROSE INJECTION 100 MG in SODIUM CHLORIDE 100 ML IVPB ONE (15:00)
[2017-06-19 16:51] VITALS: TEMP 98.2
[2017-06-19 16:52] VITALS: BP 120/76; PULSE 79
== END 2017-06-19 15:45 | disposition home or self-care (01) ==
LOC: JONCNONCHE 07:41 → J7W 14:00 → JONCNONCHE 15:45
PROVIDERS: ATTEND Internal Medicine Hematology & Oncology
PROC: 3E033GC Introduction of Other Therapeutic Substance into Peripheral Vein, Percutaneous Approach (ICD-10-PCS; principal; 2017-06-19)
PROC: 3E013GC Introduction of Other Therapeutic Substance into Subcutaneous Tissue, Percutaneous Approach (ICD-10-PCS; 2017-06-19)
DX: E61.1 Iron deficiency (principal); K90.9 Intestinal malabsorption, unspecified
CPT/HCPCS: 96365; 96372; 96417; J1756

== ENCOUNTER 2017-11-22 23:05 | Emergency (ER) | payer OTHER ==
[2017-11-22 23:12] VITALS: BP 148/79; PULSE 82; TEMP 98.6; BMI 18.3
--- NOTE | 2017-11-22 23:34 | PDOC ---
History of Present Illness - General Chief Complaint: Pain Stated Complaint: ABD PAIN History Source: Patient Exam Limitations: No Limitations - History of Present Illness Initial Comments: 11/23/17 01:34 worsening abd pain x 1 month Hx of gastric ulcer surgery Hx of pancreatitis Hx of IBS Timing/Duration: 1 week, getting worse Severity: moderate Modifying Factors: improves with: eating Associated Symptoms: denies: fever/chills, nausea/vomiting Past History - Past Medical History Allergies/Adverse Reactions: Allergies Allergy/AdvReac Type Severity Reaction Status Date / Time levofloxacin [From Levaquin] Allergy Intermediate Hives Verified 04/05/17 16:19 shellfish derived Allergy Intermediate Hives Verified 04/05/17 16:19 Sulfa (Sulfonamide Allergy Intermediate Hives Verified 04/05/17 16:19 Antibiotics) Home Medications: Ambulatory Orders Albuterol Sulfate [Proair Hfa -] 2 inh PO BID 11/09/13 Cholecalciferol (Vitamin D3) [Vitamin D3] 1,000 unit PO DAILY 11/09/13 Fluticasone Propionate [Flovent Hfa] 220 mcg IH BID 11/09/13 Hypromellose 0.5% Opth Soln [Artificial Tears] 1 drop OU Q4H PRN #0 drops Levothyroxine [Synthroid -] 88 mcg PO ASDIR 02/22/17 Lipase/Protease/Amylase [Pancreaze Dr 2,600 Unit Cap] 1 each PO TIDCM 02/22/17 Rifaximin [Xifaxan -] 550 mg PO BID 02/22/17 Amiodarone HCl [Cordarone -] 200 mg PO DAILY #30 tablet 02/27/17 Apixaban [Eliquis -] 2.5 mg PO BID tablet 02/27/17 Acetaminophen [Tylenol .Regular Strength -] 650 mg PO Q4H PRN #30 tablet Furosemide [Lasix -] 20 mg PO DAILY #30 tablet 04/08/17 Loratadine [Claritin -] 10 mg PO DAILY #30 tablet 04/08/17 Sacubitril/Valsartan [Entresto 49 mg-51 mg Tablet] 1 tab PO BID #30 tablet 04/08 Anemia: Yes Asthma: Yes (BRONCHIAL) Cancer: No Cardiac Disorders: Yes (a-fIB) CVA: No COPD: Yes CHF: Yes (short period after cardiac surgery) Dementia: No Diabetes: No GI Disorders: Yes (IBS, PANCREAS CYSTS,) Disorders: No HTN: Yes Hypercholesterolemia: Yes Liver Disease: No Seizures: No Thyroid Disease: Yes (THYROID NODULES AND SHUTDOWN 2003) - Surgical History Abdominal Surgery: Yes (PARTIAL GASTRECTOMY) Appendectomy: No Cardiac Surgery: Yes (MV REPAIR, TRICUSPID VALVE REPAIR) Cholecystectomy: No GI Surgery: Yes (Bill Deras partial gastrectomy) Lung Surgery: No Neurologic Surgery: No Orthopedic Surgery: No - Immunization History Immunization Up to Date: Yes - Suicide/Smoking/Psychosocial Hx Smoking History: Never smoked Have you smoked in the past 12 months: No Hx Alcohol Use: No Drug/Substance Use Hx: No Substance Use Type: None Hx Substance Use Treatment: No Review of Systems - Review of Systems All Other Systems: Reviewed and Negative *Physical Exam - Vital Signs Last Vital Signs Temp Pulse Resp BP Pulse Ox 98.6 F 82 16 148/79 99 11/22/17 23:09 11/22/17 23:09 11/22/17 23:09 11/22/17 23:09 11/22/17 23:09 - Physical Exam General Appearance: Yes: Thin HEENT: positive: Normal Voice Neck: positive: Supple Respiratory/Chest: positive: Lungs Clear Cardiovascular: negative: Tachycardia Gastrointestinal/Abdominal: positive: Distended. negative: Tender, Increased Bowel Sounds, Guarding, Tenderness Lymphatic: negative: Adenopathy Musculoskeletal: positive: Normal Inspection Extremity: positive: Normal Capillary Refill Integumentary: positive: Normal Color Neurologic: positive: Fully Oriented, Motor Strength 5/5 ED Treatment Course - LABORATORY CBC & Chemistry Diagram: 11/22/17 23:30 11/22/17 23:30 Medical Decision Making - Medical Decision Making 11/23/17 01:35 nonspecific abd pain with unremarkable ED simmons. GB sludge but no RUQ tenderness. Mild elevation of lipase probably not clinically relevant IVF for dehydration. Has GI fu in place *DC/Admit/Observation/Transfer Diagnosis at time of Disposition: Abdominal pain Qualifiers: Abdominal location: generalized Qualified Code(s): R10.84 - Generalized abdominal pain - Discharge Dispostion Disposition: HOME Condition at time of disposition: Stable - Referrals Referrals: Shavon Hall MD [Primary Care Provider] - - Patient Instructions Printed Discharge Instructions: DI for Abdominal Pain-Adult - Post Discharge Activity
[2017-11-22] MEDS ORDERED: ACETAMINOPHEN 325 MG TABLET (FP) PO ONE (23:35)
[2017-11-22 23:46] LABS: BASO % 1.5 % (0-2.0); EOS % 3.2 % (0-4.5); HEMATOCRIT 37.3 % (32.4-45.2); HEMOGLOBIN 12.8 GM/dl (10.7-15.3); LYMPH % 20.1 % (8-40); MCH 31.5 pg (25.7-33.7); MCHC 34.3 g/dl (32.0-36.0); MEAN CELL VOLUME 91.8 fl (80-96); MEAN PLT VOLUME 7.9 fl (7.5-11.1); MONO % 10.1 % (3.8-10.2); NEUT % 65.1 % (42.8-82.8); PLATELET COUNT 235 K/MM3 (134-434); RBC 4.06 M/mm3 (3.60-5.2); RDW 14.7 % (11.6-15.6); WHITE BLOOD COUNT 7.3 K/mm3 (4.0-10.8)
[2017-11-23 00:01] LABS: ALBUMIN 4.2 g/dl (3.5-5.0); ALK PHOS 47 U/L (32-92); ANION GAP 7 (8-16); BILIRUBIN,TOTAL 0.6 mg/dl (0.2-1.0); BLOOD UREA NITROGEN 20 mg/dl (7-18); CALCIUM 9.9 mg/dl (8.4-10.2); CHLORIDE 99 mmol/L (98-107); CO2 25 mmol/L (22-28); GLUCOSE,RANDOM 95 mg/dl (74-106); POTASSIUM 4.1 mmol/L (3.5-5.1); SGOT/AST 41 U/L (10-42); SGPT/ALT 33 U/L (10-40); SODIUM 131 mmol/L (136-145); TOT PROT 7.4 g/dl (6.4-8.3)
[2017-11-23 00:59] LABS: URINE APPEARANCE CLEAR; URINE BILIRUBIN NEGATIVE (<2.0 mg/dL); URINE BLOOD NEGATIVE (NEGATIVE); URINE COLOR COLORLESS; URINE GLUCOSE (UA) NEGATIVE (NEGATIVE); URINE KETONE NEGATIVE (NEGATIVE); URINE LEUK ESTERASE TRACE (NEGATIVE); URINE NITRITE NEGATIVE (NEGATIVE); URINE PROTEIN NEGATIVE (NEGATIVE); URINE UROBILINOGEN NEGATIVE mg/dL (0.2-1.0)
[2017-11-23 01:04] LABS: EPI CELLS RARE /HPF (FEW)
== END 2017-11-23 01:25 | disposition home or self-care (01) ==
LOC: FER 23:05
DX: R10.84 Generalized abdominal pain (principal); I10 Essential (primary) hypertension; I50.9 Heart failure, unspecified; I48.91 Unspecified atrial fibrillation; D64.9 Anemia, unspecified; J45.909 Unspecified asthma, uncomplicated; J44.9 Chronic obstructive pulmonary disease, unspecified; K58.9 Irritable bowel syndrome, unspecified; E78.00 Pure hypercholesterolemia, unspecified; E04.1 Nontoxic single thyroid nodule; Z90.3 Acquired absence of stomach [part of]
CPT/HCPCS: 36415; 74176-TC; 80053; 81003; 81015; 83690; 85025; 99282-25

== ENCOUNTER 2021-01-31 13:06 | Emergency (ER) | payer OTHER ==
[2021-01-31 13:24] VITALS: TEMP 98.1; BMI 19.5
[2021-01-31 14:39] LABS: ALBUMIN 4.5 g/dl (3.4-5.0); ALK PHOS 65 U/L (45-117); ANION GAP 12 MMOL/L (8-16); BILIRUBIN,TOTAL 0.8 mg/dl (0.2-1); CALCIUM 9.5 mg/dl (8.5-10); CHLORIDE 99 mmol/L (98-107); CO2 22 mmol/L (21-32); GLUCOSE,RANDOM 85 mg/dl (74-106); SGOT/AST 32 U/L (15-37); SGPT/ALT 21 U/L (13-61); SODIUM 133 mmol/L (136-145); TOT PROT 8.2 g/dl (6.4-8.2)
[2021-01-31 14:41] LABS: MCHC 32.5 g/dl (32.0-36.0)
[2021-01-31 14:55] LABS: EOS % 1.6 % (0-4.5); HEMATOCRIT 40.9 % (32.4-45.2); HEMOGLOBIN 13.3 GM/dl (10.7-15.3); LYMPH % 18.1 % (8-40); MCH 31.8 pg (25.7-33.7); MEAN CELL VOLUME 97.7 fl (80-96); MEAN PLT VOLUME 8.4 fl (7.5-11.1); MONO % 9.2 % (3.8-10.2); NEUT % 68.1 % (42.8-82.8); PLATELET COUNT 286 K/MM3 (134-434); RBC 4.19 M/mm3 (3.60-5.2); RDW 13.8 % (11.6-15.6); WHITE BLOOD COUNT 8.1 K/mm3 (4.0-10.8)
[2021-01-31 17:25] LABS: N-TERMINAL BNP 7556.6 pg/ml (5-450)
[2021-01-31 17:37] VITALS: BP 132/74; PULSE 86
== END 2021-01-31 17:58 | disposition home or self-care (01) ==
LOC: FER 13:06
DX: R53.1 Weakness (principal)
CPT/HCPCS: 36415; 70450-TC; 71046-TC-FY; 80053; 83880; 84484; 85025; 93005; 99285-25; C9803; U0003; U0005

== ENCOUNTER 2021-03-01 05:17 | Day surgery (SDC) | payer OTHER ==
[2021-02-25 13:38] VITALS: BMI 19.3
[2021-03-01 12:07] VITALS: TEMP 97
[2021-03-01 12:52] VITALS: PULSE 60
[2021-03-01 13:03] VITALS: BP 132/60
== END 2021-03-01 13:10 | disposition home or self-care (01) ==
LOC: JASU-ENDO 05:17
PROVIDERS: ATTEND Internal Medicine
PROC: 5A2204Z Restoration of Cardiac Rhythm, Single (ICD-10-PCS; principal; 2021-03-01 11:15)
DX: I48.91 Unspecified atrial fibrillation (principal)
CPT/HCPCS: 92960; 93005; 93010

== ENCOUNTER 2022-05-04 10:17 | Inpatient (IN) | payer OTHER ==
[2022-05-04 12:13] LABS: BASO % 0.4 % (0-2.0); EOS % 1.5 % (0-4.5); HEMATOCRIT 32.5 % (32.4-45.2); HEMOGLOBIN 10.8 GM/dL (10.7-15.3); LYMPH % 10.5 % (8-40); MCH 30.9 pg (25.7-33.7); MCHC 33.2 g/dl (32.0-36.0); MEAN CELL VOLUME 93.3 fl (80-96); MEAN PLT VOLUME 7.3 fl (7.5-11.1); MONO % 11.9 % (3.8-10.2); NEUT % 75.7 % (42.8-82.8); PLATELET COUNT 276 10^3/uL (134-434); RBC 3.49 M/mm3 (3.60-5.2); RDW 14.5 % (11.6-15.6); WHITE BLOOD COUNT 7.3 K/mm3 (4.0-10.0)
[2022-05-04 12:24] LABS: INR 1.45 (0.83-1.09); PROTHROMBIN TIME (PATIENT) 16.7 SEC (9.7-13.0)
[2022-05-04 12:27] LABS: ACTIVATED PTT 33.3 SECONDS (25.2-36.5)
[2022-05-04 12:44] LABS: ALBUMIN 3.4 g/dl (3.4-5.0); CALCIUM 9.3 mg/dL (8.5-10.1)
[2022-05-04 12:45] LABS: BLOOD UREA NITROGEN 22.4 mg/dL (7-18); MAGNESIUM 1.9 mg/dL (1.8-2.4)
[2022-05-04 12:48] LABS: CREATININE 1.1 mg/dL (0.55-1.3)
[2022-05-04 12:49] LABS: BILIRUBIN,TOTAL 0.5 mg/dL (0.2-1); TOT PROT 7.2 g/dl (6.4-8.2)
[2022-05-04 12:52] LABS: EPI CELLS 14 /uL (0-25.1); HYALINE CASTS 1 /uL (0-3.1); PH,URINE 5.5 (5.0-8.0); URINE APPEARANCE CLEAR; URINE BACTERIA 71 /uL (0-1359); URINE BILIRUBIN NEGATIVE (NEGATIVE); URINE COLOR YELLOW; URINE GLUCOSE (UA) NEGATIVE (NEGATIVE); URINE KETONE NEGATIVE (NEGATIVE); URINE LEUK ESTERASE TRACE (NEGATIVE); URINE NITRITE NEGATIVE (NEGATIVE); URINE PROTEIN NEGATIVE (NEGATIVE); URINE RBC 16 /uL (0-23.9); URINE UROBILINOGEN 0.2 mg/dL (0.2-1.0); URINE WBC 10 /uL (0-25.8)
[2022-05-04] MEDS ORDERED: SPIRONOLACTONE 25 MG TABLET PO ONE (14:02)
[2022-05-04] MEDS ORDERED: PATIENT'S OWN MEDICATION (NON-FORMULARY) (Denosumab 60 MG/ML Disp.Syrin) SQ SCH (14:30)
[2022-05-04] MEDS ORDERED: SPIRONOLACTONE 25 MG TABLET ONE (14:34)
[2022-05-04 16:04] LABS: PHOSPHOROUS 3.4 mg/dL (2.5-4.9)
[2022-05-04] MEDS ORDERED: APIXABAN 2.5 MG TABLET ONE (21:39)
[2022-05-04] MEDS: NEBIVOLOL 10 MG TABLET (FP) PO SCH (21:53)
[2022-05-04] MEDS: APIXABAN 2.5 MG TABLET PO SCH (21:53)
[2022-05-04] MEDS: FLUTICASONE PROP 0.05% 16 GM NASAL SPRAY NS SCH (21:53)
[2022-05-04] MEDS ORDERED: PATIENT'S OWN MEDICATION (NON-FORMULARY) (Cyclosporine [Restasis] 1 EACH Droperette) OP SCH (22:00)
[2022-05-04] MEDS ORDERED: ALBUTEROL SO4 HFA INHALER IH SCH (22:00)
[2022-05-04] MEDS ORDERED: BACITRACIN 15 GM TUBE TOPICAL OINTMENT ONE (23:45)
[2022-05-05] MEDS: LEVOTHYROXINE NA 100 MCG TABLET (FP) PO SCH (06:42)
[2022-05-05] MEDS: LIPASE/PROTEASE/AMYLASE 6,000 UNIT CAPSULE PO SCH ×3 (08:15→17:16)
[2022-05-05 09:05] LABS: BASO % 0.4 % (0-2.0); EOS % 4.9 % (0-4.5); HEMATOCRIT 32.2 % (32.4-45.2); HEMOGLOBIN 10.3 GM/dL (10.7-15.3); LYMPH % 13.4 % (8-40); MCHC 32.1 g/dl (32.0-36.0); MEAN CELL VOLUME 93.4 fl (80-96); MEAN PLT VOLUME 7.5 fl (7.5-11.1); NEUT % 70.3 % (42.8-82.8); PLATELET COUNT 268 10^3/uL (134-434); RBC 3.45 M/mm3 (3.60-5.2); RDW 14.5 % (11.6-15.6); WHITE BLOOD COUNT 6.5 K/mm3 (4.0-10.0)
[2022-05-05 09:14] LABS: CALCIUM 8.9 mg/dL (8.5-10.1)
[2022-05-05 09:15] LABS: BLOOD UREA NITROGEN 18.7 mg/dL (7-18)
[2022-05-05] MEDS ORDERED: ALBUTEROL SO4 HFA INHALER IH PRN (09:19)
[2022-05-05] MEDS: FAMOTIDINE 20 MG TABLET PO SCH (10:11)
[2022-05-05] MEDS: AMIODARONE HCL 200 MG TABLET PO SCH (10:11)
[2022-05-05] MEDS: SPIRONOLACTONE 25 MG TABLET PO SCH (10:12)
[2022-05-05] MEDS: NEBIVOLOL 10 MG TABLET (FP) PO SCH ×2 (10:12→21:59)
[2022-05-05] MEDS: amLODIPine BESYLATE 5 MG TABLET (FP) PO SCH (10:12)
[2022-05-05] MEDS: APIXABAN 2.5 MG TABLET PO SCH ×2 (10:12→21:59)
[2022-05-05] MEDS: FLUTICASONE PROP 0.05% 16 GM NASAL SPRAY NS SCH ×2 (11:40→21:59)
[2022-05-05 15:03] VITALS: BMI 17.9
[2022-05-05] MEDS ORDERED: ARTIFICIAL TEARS (POLYVINYL ALCOHOL) OPTH DROPS OU PRN (16:23)
[2022-05-06] MEDS: LEVOTHYROXINE NA 100 MCG TABLET (FP) PO SCH (06:24)
[2022-05-06] MEDS: LIPASE/PROTEASE/AMYLASE 6,000 UNIT CAPSULE PO SCH ×3 (07:35→17:18)
[2022-05-06] MEDS: SPIRONOLACTONE 25 MG TABLET PO SCH (09:15)
[2022-05-06] MEDS: amLODIPine BESYLATE 5 MG TABLET (FP) PO SCH (09:15)
[2022-05-06] MEDS: APIXABAN 2.5 MG TABLET PO SCH ×2 (09:15→21:41)
[2022-05-06] MEDS: NEBIVOLOL 10 MG TABLET (FP) PO SCH ×2 (09:15→21:41)
[2022-05-06] MEDS: FAMOTIDINE 20 MG TABLET PO SCH (09:15)
[2022-05-06] MEDS: AMIODARONE HCL 200 MG TABLET PO SCH (09:16)
[2022-05-06] MEDS: FLUTICASONE PROP 0.05% 16 GM NASAL SPRAY NS SCH ×2 (09:16→21:41)
[2022-05-06] MEDS: ACETAMINOPHEN 325 MG TABLET (FP) PO PRN ×2 (09:30→17:16)
[2022-05-06 11:24] LABS: BASO % 0.5 % (0-2.0); EOS % 4.2 % (0-4.5); HEMATOCRIT 32.5 % (32.4-45.2); HEMOGLOBIN 10.4 GM/dL (10.7-15.3); LYMPH % 10.8 % (8-40); MCH 29.9 pg (25.7-33.7); MEAN CELL VOLUME 93.4 fl (80-96); MEAN PLT VOLUME 7.1 fl (7.5-11.1); MONO % 14.8 % (3.8-10.2); NEUT % 69.7 % (42.8-82.8); PLATELET COUNT 266 10^3/uL (134-434); RBC 3.48 M/mm3 (3.60-5.2); RDW 14.6 % (11.6-15.6)
[2022-05-06 12:17] LABS: BILIRUBIN,TOTAL 0.4 mg/dL (0.2-1); BLOOD UREA NITROGEN 22.6 mg/dL (7-18); CALCIUM 9.1 mg/dL (8.5-10.1); CREATININE 1.1 mg/dL (0.55-1.3); MAGNESIUM 1.8 mg/dL (1.8-2.4); TOT PROT 6.3 g/dl (6.4-8.2)
[2022-05-06] MEDS ORDERED: BISACODYL 5 MG TABLET.DR (FP) PO PRN (18:03)
[2022-05-06] MEDS: POLYETHYLENE GLYCOL (HEALTHYLAX) 3350 17 GM PACKET PO SCH (19:18)
[2022-05-06] MEDS: SENNOSIDES 8.6MG TABLET (FP) PO SCH (21:41)
[2022-05-07] MEDS: ACETAMINOPHEN 325 MG TABLET (FP) PO PRN ×3 (01:46→23:00)
[2022-05-07] MEDS: LEVOTHYROXINE NA 100 MCG TABLET (FP) PO SCH (06:31)
[2022-05-07 07:26] LABS: BASO % 0.5 % (0-2.0); EOS % 6.1 % (0-4.5); HEMATOCRIT 35.2 % (32.4-45.2); HEMOGLOBIN 11.2 GM/dL (10.7-15.3); LYMPH % 17.7 % (8-40); MCH 29.5 pg (25.7-33.7); MCHC 31.9 g/dl (32.0-36.0); MEAN CELL VOLUME 92.5 fl (80-96); MEAN PLT VOLUME 7.6 fl (7.5-11.1); MONO % 13.3 % (3.8-10.2); NEUT % 62.4 % (42.8-82.8); PLATELET COUNT 310 10^3/uL (134-434); RBC 3.81 M/mm3 (3.60-5.2); RDW 14.6 % (11.6-15.6)
[2022-05-07 07:44] LABS: CALCIUM 9.5 mg/dL (8.5-10.1)
[2022-05-07 07:45] LABS: ALBUMIN 3.3 g/dl (3.4-5.0); BLOOD UREA NITROGEN 25.5 mg/dL (7-18); MAGNESIUM 1.9 mg/dL (1.8-2.4)
[2022-05-07 07:48] LABS: CREATININE 1.2 mg/dL (0.55-1.3)
[2022-05-07 07:50] LABS: BILIRUBIN,TOTAL 0.4 mg/dL (0.2-1); TOT PROT 7.1 g/dl (6.4-8.2)
[2022-05-07] MEDS: LIPASE/PROTEASE/AMYLASE 6,000 UNIT CAPSULE PO SCH ×3 (08:15→17:38)
[2022-05-07] MEDS: NEBIVOLOL 10 MG TABLET (FP) PO SCH ×2 (09:46→21:09)
[2022-05-07] MEDS: AMIODARONE HCL 200 MG TABLET PO SCH (09:46)
[2022-05-07] MEDS: amLODIPine BESYLATE 5 MG TABLET (FP) PO SCH (09:46)
[2022-05-07] MEDS: FLUTICASONE PROP 0.05% 16 GM NASAL SPRAY NS SCH ×2 (09:48→21:09)
[2022-05-07] MEDS: SPIRONOLACTONE 25 MG TABLET PO SCH (09:48)
[2022-05-07] MEDS: APIXABAN 2.5 MG TABLET PO SCH ×2 (09:48→21:09)
[2022-05-07] MEDS: FAMOTIDINE 20 MG TABLET PO SCH (09:49)
[2022-05-07] MEDS: POLYETHYLENE GLYCOL (HEALTHYLAX) 3350 17 GM PACKET PO SCH (09:49)
[2022-05-07 18:45] VITALS: RESP 18
[2022-05-07] MEDS: SENNOSIDES 8.6MG TABLET (FP) PO SCH ×2 (21:09→21:12)
[2022-05-07] MEDS: METHYL SALICYLATE/MENTHOL OINT 30 GM TUBE TP SCH (23:56)
[2022-05-08] MEDS: ACETAMINOPHEN 325 MG TABLET (FP) PO PRN (05:31)
[2022-05-08] MEDS: LEVOTHYROXINE NA 100 MCG TABLET (FP) PO SCH (06:30)
[2022-05-08 07:22] LABS: EOS % 6.1 % (0-4.5); HEMATOCRIT 31.9 % (32.4-45.2); HEMOGLOBIN 10.5 GM/dL (10.7-15.3); MCH 30.4 pg (25.7-33.7); MCHC 32.9 g/dl (32.0-36.0); MEAN CELL VOLUME 92.2 fl (80-96); MEAN PLT VOLUME 7.4 fl (7.5-11.1); MONO % 14.3 % (3.8-10.2); NEUT % 61.6 % (42.8-82.8); PLATELET COUNT 291 10^3/uL (134-434); RBC 3.46 M/mm3 (3.60-5.2); RDW 14.6 % (11.6-15.6); WHITE BLOOD COUNT 6.6 K/mm3 (4.0-10.0)
[2022-05-08 07:44] LABS: CALCIUM 9.2 mg/dL (8.5-10.1)
[2022-05-08 07:45] LABS: ALBUMIN 3.2 g/dl (3.4-5.0); BLOOD UREA NITROGEN 24.4 mg/dL (7-18); MAGNESIUM 1.9 mg/dL (1.8-2.4)
[2022-05-08 07:48] LABS: CREATININE 1.1 mg/dL (0.55-1.3)
[2022-05-08 07:49] LABS: TOT PROT 6.7 g/dl (6.4-8.2)
[2022-05-08 07:50] LABS: BILIRUBIN,TOTAL 0.4 mg/dL (0.2-1)
[2022-05-08 09:40] VITALS: BP 103/56; PULSE 72; TEMP 98.8
[2022-05-08] MEDS: LIPASE/PROTEASE/AMYLASE 6,000 UNIT CAPSULE PO SCH ×2 (09:47→12:29)
[2022-05-08] MEDS: SPIRONOLACTONE 25 MG TABLET PO SCH (09:48)
[2022-05-08] MEDS: APIXABAN 2.5 MG TABLET PO SCH (09:48)
[2022-05-08] MEDS: amLODIPine BESYLATE 5 MG TABLET (FP) PO SCH (09:48)
[2022-05-08] MEDS: FAMOTIDINE 20 MG TABLET PO SCH (09:48)
[2022-05-08] MEDS: NEBIVOLOL 10 MG TABLET (FP) PO SCH (09:48)
[2022-05-08] MEDS: AMIODARONE HCL 200 MG TABLET PO SCH (09:48)
[2022-05-08] MEDS: POLYETHYLENE GLYCOL (HEALTHYLAX) 3350 17 GM PACKET PO SCH (09:49)
[2022-05-08] MEDS: METHYL SALICYLATE/MENTHOL OINT 30 GM TUBE TP SCH (09:51)
[2022-05-08] MEDS: FLUTICASONE PROP 0.05% 16 GM NASAL SPRAY NS SCH (09:51)
[2022-05-09] MEDS ORDERED: ETHACRYNIC ACID 25 MG TABLET PO SCH (10:00)
== END 2022-05-08 14:12 | disposition home or self-care (01) | DRG 308 ==
LOC: JER 10:17 → JERBED 10:47 → J4W 23:55
PROVIDERS: ADMIT Internal Medicine; ATTEND Nurse Practitioner Acute Care
DX: I48.0 Paroxysmal atrial fibrillation (principal); I50.23 Acute on chronic systolic (congestive) heart failure; I11.0 Hypertensive heart disease with heart failure; I45.2 Bifascicular block; E78.5 Hyperlipidemia, unspecified; J45.909 Unspecified asthma, uncomplicated; E03.9 Hypothyroidism, unspecified; K21.9 Gastro-esophageal reflux disease without esophagitis; J44.9 Chronic obstructive pulmonary disease, unspecified; E04.2 Nontoxic multinodular goiter; K58.9 Irritable bowel syndrome, unspecified; Z95.2 Presence of prosthetic heart valve; Z95.0 Presence of cardiac pacemaker
CPT/HCPCS: 36415; 71045-TC-FY; 80048; 80053; 81003; 82550; 83735; 84100; 84443; 84484; 85025; 85610; 85730; 87086; 93005; 93010; 97116-GP; 97161-GP; 99285-25; C9803-CS; U0003; U0005

== ENCOUNTER 2022-05-22 04:27 | Day surgery (SDC) | payer OTHER ==
[2022-05-19 15:24] VITALS: BMI 17.9
[2022-05-22 13:47] VITALS: PULSE 61
[2022-05-22 14:09] VITALS: BP 134/66; RESP 13; TEMP 98.1
== END 2022-05-22 13:53 | disposition home or self-care (01) ==
LOC: JASU-ENDO 04:27
PROVIDERS: ATTEND Internal Medicine Cardiovascular Disease
PROC: 5A2204Z Restoration of Cardiac Rhythm, Single (ICD-10-PCS; principal; 2022-05-22 12:00)
DX: I48.91 Unspecified atrial fibrillation (principal)
CPT/HCPCS: 92960; 93005; 93010

== ENCOUNTER 2022-06-05 22:21 | Inpatient (IN) | payer OTHER ==
[2022-06-05] MEDS ORDERED: ONDANSETRON 4 MG/2 ML VIAL IVPUSH ONE (22:57)
[2022-06-05] MEDS ORDERED: ONDANSETRON 4 MG/2 ML VIAL ONE (23:01)
[2022-06-05 23:24] LABS: BASO % 0.5 % (0-2.0); EOS % 2.5 % (0-4.5); HEMOGLOBIN 10.4 GM/dL (10.7-15.3); LYMPH % 9.9 % (8-40); MCH 29.6 pg (25.7-33.7); MCHC 32.6 g/dl (32.0-36.0); MEAN CELL VOLUME 90.9 fl (80-96); MEAN PLT VOLUME 7.1 fl (7.5-11.1); MONO % 9.1 % (3.8-10.2); PLATELET COUNT 274 10^3/uL (134-434); RBC 3.52 M/mm3 (3.60-5.2); RDW 15.4 % (11.6-15.6)
[2022-06-05] MEDS ORDERED: MAGNESIUM SULF 50% (8.12 MEQ/2 ML-1 GM VIAL) IVPB ONE (23:46)
[2022-06-05 23:55] LABS: ALBUMIN 3.2 g/dl (3.4-5.0); CALCIUM 9.1 mg/dL (8.5-10.1); MAGNESIUM 1.8 mg/dL (1.8-2.4)
[2022-06-05 23:58] LABS: CREATININE 1.4 mg/dL (0.55-1.3)
[2022-06-05 23:59] LABS: PHOSPHOROUS 4.8 mg/dL (2.5-4.9)
[2022-06-06] LABS: BILIRUBIN,TOTAL 0.4 mg/dL (0.2-1); TOT PROT 6.7 g/dl (6.4-8.2)
[2022-06-06 00:03] LABS: N-TERMINAL BNP 26094.9 pg/ml (5-450)
[2022-06-06] MEDS ORDERED: MAGNESIUM SULFATE IN WATER 2 GM/50 ML IVPB IVPB ONE (00:07)
[2022-06-06] MEDS ORDERED: TRIMETHOBENZAMIDE HCL 200MG/2ML INJ IM ONE ×3 (01:49→08:04)
[2022-06-06] MEDS: TRIMETHOBENZAMIDE HCL 200MG/2ML INJ IM PRN ×2 (10:19→20:14)
[2022-06-06] MEDS ORDERED: ACETAMINOPHEN 1000 MG/100 ML BAG IVPB ONE (10:38)
[2022-06-06 12:53] LABS: BASO % 0.4 % (0-2.0); EOS % 0.3 % (0-4.5); HEMATOCRIT 32.3 % (32.4-45.2); HEMOGLOBIN 10.6 GM/dL (10.7-15.3); LYMPH % 12.4 % (8-40); MCHC 32.8 g/dl (32.0-36.0); MEAN CELL VOLUME 91.5 fl (80-96); MEAN PLT VOLUME 7.4 fl (7.5-11.1); MONO % 10.6 % (3.8-10.2); NEUT % 76.3 % (42.8-82.8); PLATELET COUNT 292 10^3/uL (134-434); RBC 3.53 M/mm3 (3.60-5.2); RDW 15.7 % (11.6-15.6); WHITE BLOOD COUNT 6.6 K/mm3 (4.0-10.0)
[2022-06-06 13:00] LABS: CALCIUM 9.6 mg/dL (8.5-10.1)
[2022-06-06 13:02] LABS: ALBUMIN 3.3 g/dl (3.4-5.0); BLOOD UREA NITROGEN 28.4 mg/dL (7-18); MAGNESIUM 2.4 mg/dL (1.8-2.4)
[2022-06-06 13:05] LABS: CREATININE 1.4 mg/dL (0.55-1.3); PHOSPHOROUS 4.4 mg/dL (2.5-4.9)
[2022-06-06 13:06] LABS: BILIRUBIN,TOTAL 0.7 mg/dL (0.2-1); TOT PROT 6.8 g/dl (6.4-8.2)
[2022-06-06] MEDS ORDERED: SODIUM ZIRCONIUM CYCLOSILICATE (LOKELMA) 5 GM PACKET ONE (16:29)
[2022-06-06] MEDS: SODIUM ZIRCONIUM CYCLOSILICATE (LOKELMA) 5 GM PACKET PO SCH (16:30)
[2022-06-06] MEDS: NEBIVOLOL 10 MG TABLET (FP) PO SCH (21:39)
[2022-06-06] MEDS: APIXABAN 2.5 MG TABLET PO SCH (21:39)
[2022-06-06] MEDS: MOMETASONE FUROATE 220 MCG/IH INHALER IH SCH (21:39)
[2022-06-06] MEDS ORDERED: PATIENT'S OWN MEDICATION (NON-FORMULARY) (Cyclosporine [Restasis] 1 EACH Droperette) OP SCH (22:00)
[2022-06-06] MEDS ORDERED: ALBUTEROL SO4 HFA INHALER IH PRN (22:00)
[2022-06-07] MEDS: LEVOTHYROXINE NA 100 MCG TABLET (FP) PO SCH (06:15)
[2022-06-07] MEDS: LIPASE/PROTEASE/AMYLASE 6,000 UNIT CAPSULE PO SCH ×4 (08:28→17:00)
[2022-06-07 08:55] LABS: HEMOGLOBIN 10.5 GM/dL (10.7-15.3); MCH 29.9 pg (25.7-33.7); MEAN CELL VOLUME 90.6 fl (80-96); MEAN PLT VOLUME 7.5 fl (7.5-11.1); PLATELET COUNT 283 10^3/uL (134-434); RBC 3.53 M/mm3 (3.60-5.2); RDW 15.3 % (11.6-15.6); WHITE BLOOD COUNT 6.7 K/mm3 (4.0-10.0)
[2022-06-07 09:33] LABS: BLOOD UREA NITROGEN 26.7 mg/dL (7-18); MAGNESIUM 2.3 mg/dL (1.8-2.4)
[2022-06-07 09:36] LABS: BILIRUBIN,TOTAL 0.7 mg/dL (0.2-1); CREATININE 1.3 mg/dL (0.55-1.3); PHOSPHOROUS 3.7 mg/dL (2.5-4.9); TOT PROT 6.2 g/dl (6.4-8.2)
[2022-06-07] MEDS: APIXABAN 2.5 MG TABLET PO SCH ×2 (10:30→21:43)
[2022-06-07] MEDS: AMIODARONE HCL 200 MG TABLET PO SCH (10:30)
[2022-06-07] MEDS: CHOLECALCIFEROL (VIT D3) 1,000 UNIT (25 MCG) TABLET PO SCH (10:31)
[2022-06-07] MEDS: NEBIVOLOL 10 MG TABLET (FP) PO SCH ×2 (10:31→21:43)
[2022-06-07] MEDS: SODIUM ZIRCONIUM CYCLOSILICATE (LOKELMA) 5 GM PACKET PO SCH (10:31)
[2022-06-07] MEDS: MULTIVITAMINS (DAILY MVI) TABLET (FP) PO SCH (10:31)
[2022-06-07] MEDS: ACETAMINOPHEN 325 MG TABLET (FP) PO PRN (14:14)
[2022-06-07] MEDS: MOMETASONE FUROATE 220 MCG/IH INHALER IH SCH (21:43)
[2022-06-08] MEDS: LEVOTHYROXINE NA 100 MCG TABLET (FP) PO SCH (06:21)
[2022-06-08] MEDS: LIPASE/PROTEASE/AMYLASE 6,000 UNIT CAPSULE PO SCH ×3 (07:51→17:35)
[2022-06-08 07:59] LABS: HEMATOCRIT 33.1 % (32.4-45.2); HEMOGLOBIN 10.5 GM/dL (10.7-15.3); MCH 29.1 pg (25.7-33.7); MCHC 31.8 g/dl (32.0-36.0); MEAN CELL VOLUME 91.6 fl (80-96); MEAN PLT VOLUME 7.7 fl (7.5-11.1); PLATELET COUNT 315 10^3/uL (134-434); RBC 3.62 M/mm3 (3.60-5.2); RDW 15.4 % (11.6-15.6); WHITE BLOOD COUNT 8.5 K/mm3 (4.0-10.0)
[2022-06-08 08:22] LABS: CALCIUM 9.1 mg/dL (8.5-10.1)
[2022-06-08 08:23] LABS: ALBUMIN 3.1 g/dl (3.4-5.0); MAGNESIUM 2.1 mg/dL (1.8-2.4)
[2022-06-08 08:25] LABS: CREATININE 1.4 mg/dL (0.55-1.3)
[2022-06-08 08:26] LABS: BILIRUBIN,TOTAL 0.4 mg/dL (0.2-1); TOT PROT 6.4 g/dl (6.4-8.2)
[2022-06-08] MEDS ORDERED: FLU VACC QS2022-23(6MOS UP)/PF 60 MCG/0.5 ML SYRINGE IM ONE (10:00)
[2022-06-08] MEDS: APIXABAN 2.5 MG TABLET PO SCH ×2 (10:06→22:13)
[2022-06-08] MEDS: AMIODARONE HCL 200 MG TABLET PO SCH (10:06)
[2022-06-08] MEDS: NEBIVOLOL 10 MG TABLET (FP) PO SCH ×2 (10:06→22:13)
[2022-06-08] MEDS: CHOLECALCIFEROL (VIT D3) 1,000 UNIT (25 MCG) TABLET PO SCH (10:06)
[2022-06-08] MEDS: SODIUM ZIRCONIUM CYCLOSILICATE (LOKELMA) 5 GM PACKET PO SCH (10:07)
[2022-06-08] MEDS: MULTIVITAMINS (DAILY MVI) TABLET (FP) PO SCH (10:07)
[2022-06-08] MEDS: ACETAMINOPHEN 325 MG TABLET (FP) PO PRN ×2 (13:43→22:15)
[2022-06-08] MEDS: EPLERENONE 25 MG TABLET PO SCH (13:47)
[2022-06-08] MEDS ORDERED: SODIUM ZIRCONIUM CYCLOSILICATE (LOKELMA) 5 GM PACKET PO SCH (14:30)
[2022-06-08] MEDS ORDERED: SENNOSIDES 8.6MG TABLET (FP) PO SCH (22:00)
[2022-06-08] MEDS: MOMETASONE FUROATE 220 MCG/IH INHALER IH SCH (22:13)
[2022-06-09] VITALS: BMI 18.3
[2022-06-09] MEDS: LEVOTHYROXINE NA 100 MCG TABLET (FP) PO SCH (07:01)
[2022-06-09 07:44] LABS: BASO % 0.3 % (0-2.0); EOS % 5.4 % (0-4.5); HEMATOCRIT 29.8 % (32.4-45.2); HEMOGLOBIN 9.5 GM/dL (10.7-15.3); MCHC 31.8 g/dl (32.0-36.0); MEAN CELL VOLUME 91.3 fl (80-96); MEAN PLT VOLUME 7.4 fl (7.5-11.1); MONO % 16.5 % (3.8-10.2); NEUT % 64.8 % (42.8-82.8); PLATELET COUNT 266 10^3/uL (134-434); RBC 3.26 M/mm3 (3.60-5.2); RDW 15.3 % (11.6-15.6); WHITE BLOOD COUNT 6.5 K/mm3 (4.0-10.0)
[2022-06-09 08:10] LABS: CALCIUM 8.5 mg/dL (8.5-10.1)
[2022-06-09 08:11] LABS: BLOOD UREA NITROGEN 25.2 mg/dL (7-18); MAGNESIUM 1.9 mg/dL (1.8-2.4)
[2022-06-09 08:14] LABS: PHOSPHOROUS 3.1 mg/dL (2.5-4.9)
[2022-06-09 09:30] VITALS: RESP 18
[2022-06-09] MEDS: APIXABAN 2.5 MG TABLET PO SCH (09:42)
[2022-06-09] MEDS: MULTIVITAMINS (DAILY MVI) TABLET (FP) PO SCH (09:42)
[2022-06-09] MEDS: AMIODARONE HCL 200 MG TABLET PO SCH (09:43)
[2022-06-09] MEDS: CHOLECALCIFEROL (VIT D3) 1,000 UNIT (25 MCG) TABLET PO SCH (09:43)
[2022-06-09] MEDS: NEBIVOLOL 10 MG TABLET (FP) PO SCH (09:43)
[2022-06-09] MEDS: EPLERENONE 25 MG TABLET PO SCH (09:45)
[2022-06-09] MEDS: LIPASE/PROTEASE/AMYLASE 6,000 UNIT CAPSULE PO SCH ×3 (09:45→17:40)
[2022-06-09] MEDS ORDERED: ACETAMINOPHEN 325 MG TABLET (FP) PO PRN (10:41)
[2022-06-09] MEDS ORDERED: LOPERAMIDE HCL 1 MG/5 ML UNIT DOSE CUP PO ONE (13:49)
[2022-06-09] MEDS ORDERED: LOPERAMIDE HCL 1 MG/7.5 ML LIQUID PO ONE (14:15)
[2022-06-09 15:03] VITALS: BP 135/70; PULSE 73; TEMP 98
[2022-06-09] MEDS ORDERED: LOPERAMIDE HCL 2 MG CAPSULE PO PRN (15:31)
== END 2022-06-09 18:21 | disposition home or self-care (01) | DRG 291 ==
LOC: JER 22:21 → JERBED 06-06 02:03 → OBSVTOIN 06-06 05:38 → J4W 06-06 18:59
PROVIDERS: ADMIT Internal Medicine; ATTEND Internal Medicine
DX: I11.0 Hypertensive heart disease with heart failure (principal); I50.23 Acute on chronic systolic (congestive) heart failure; I45.2 Bifascicular block; N17.9 Acute kidney failure, unspecified; K86.1 Other chronic pancreatitis; I48.19 Other persistent atrial fibrillation; K80.70 Calculus of gallbladder and bile duct without cholecystitis without obstruction; T50.0X5A Adverse effect of mineralocorticoids and their antagonists, initial encounter; Y92.89 Other specified places as the place of occurrence of the external cause; E03.9 Hypothyroidism, unspecified; I48.91 Unspecified atrial fibrillation; E78.5 Hyperlipidemia, unspecified; D64.9 Anemia, unspecified; E87.5 Hyperkalemia; K57.90 Diverticulosis of intestine, part unspecified, without perforation or abscess without bleeding; J44.9 Chronic obstructive pulmonary disease, unspecified; K21.9 Gastro-esophageal reflux disease without esophagitis; E87.70 Fluid overload, unspecified; Z98.890 Other specified postprocedural states
CPT/HCPCS: 36415; 71045-TC-FY; 74176-TC; 76700-TC; 80048; 80053; 82728; 83540; 83550; 83735; 83880; 84100; 84484; 85025; 85027; 85045; 93005; 93010; 93306-TC; 97116-GP; 97161-GP; 99285-25; C9803-CS; G0378; U0003; U0005

== ENCOUNTER 2022-06-11 20:59 | Inpatient (IN) | payer OTHER ==
[2022-06-11 22:22] LABS: BASO % 0.7 % (0-2.0); EOS % 1.3 % (0-4.5); HEMATOCRIT 31.4 % (32.4-45.2); HEMOGLOBIN 10.1 GM/dL (10.7-15.3); LYMPH % 11.6 % (8-40); MCHC 32.1 g/dl (32.0-36.0); MEAN CELL VOLUME 90.5 fl (80-96); MEAN PLT VOLUME 7.2 fl (7.5-11.1); MONO % 14.6 % (3.8-10.2); NEUT % 71.8 % (42.8-82.8); PLATELET COUNT 335 10^3/uL (134-434); RBC 3.47 M/mm3 (3.60-5.2); RDW 15.9 % (11.6-15.6); WHITE BLOOD COUNT 7.6 K/mm3 (4.0-10.0)
[2022-06-11 22:50] LABS: CALCIUM 8.6 mg/dL (8.5-10.1)
[2022-06-11 22:51] LABS: ALBUMIN 3.2 g/dl (3.4-5.0); BLOOD UREA NITROGEN 27.2 mg/dL (7-18)
[2022-06-11 22:54] LABS: CREATININE 1.2 mg/dL (0.55-1.3)
[2022-06-11 22:56] LABS: BILIRUBIN,TOTAL 0.7 mg/dL (0.2-1); TOT PROT 6.5 g/dl (6.4-8.2)
[2022-06-11 23:14] LABS: N-TERMINAL BNP 47167.3 pg/ml (5-450)
[2022-06-11] MEDS ORDERED: TRIMETHOBENZAMIDE HCL 200MG/2ML INJ IM ONE ×2 (23:41→23:47)
[2022-06-12] MEDS ORDERED: ACETAMINOPHEN 325 MG TABLET (FP) PO PRN (01:51)
[2022-06-12] MEDS ORDERED: DOCUSATE SODIUM 100 MG CAPSULE (FP) PO PRN (01:51)
[2022-06-12] MEDS ORDERED: LOPERAMIDE HCL 2 MG CAPSULE PO PRN (02:01)
[2022-06-12] MEDS ORDERED: ALBUTEROL SO4 HFA INHALER IH PRN (02:09)
[2022-06-12] MEDS ORDERED: MAG HYDROX/AL HYDROX/SIMETH 30 ML UNIT-DOSE CUP PO PRN (05:22)
[2022-06-12] MEDS ORDERED: TRIMETHOBENZAMIDE HCL 200MG/2ML INJ IM ONE (06:52)
[2022-06-12] MEDS: TRIMETHOBENZAMIDE HCL 200MG/2ML INJ IM PRN ×2 (07:04→16:06)
[2022-06-12 08:44] LABS: BASO % 0.5 % (0-2.0); EOS % 0.6 % (0-4.5); HEMATOCRIT 32.2 % (32.4-45.2); HEMOGLOBIN 10.2 GM/dL (10.7-15.3); LYMPH % 13.9 % (8-40); MCH 28.7 pg (25.7-33.7); MCHC 31.8 g/dl (32.0-36.0); MEAN CELL VOLUME 90.4 fl (80-96); MEAN PLT VOLUME 7.6 fl (7.5-11.1); PLATELET COUNT 354 10^3/uL (134-434); RBC 3.56 M/mm3 (3.60-5.2); RDW 16.1 % (11.6-15.6); WHITE BLOOD COUNT 7.8 K/mm3 (4.0-10.0)
[2022-06-12 08:50] LABS: INR 1.81 (0.83-1.09); PROTHROMBIN TIME (PATIENT) 20.9 SEC (9.7-13.0)
[2022-06-12] MEDS: LEVOTHYROXINE NA 100 MCG TABLET (FP) PO SCH (09:00)
[2022-06-12 09:14] LABS: CALCIUM 9.1 mg/dL (8.5-10.1)
[2022-06-12] MEDS ORDERED: LEVOTHYROXINE NA 50 MCG TABLET (FP) ONE (09:14)
[2022-06-12] MEDS ORDERED: CHOLECALCIFEROL (VIT D3) 1,000 UNIT (25 MCG) TABLET ONE (09:14)
[2022-06-12] MEDS ORDERED: AMIODARONE HCL 200 MG TABLET ONE (09:14)
[2022-06-12 09:18] LABS: CREATININE 1.3 mg/dL (0.55-1.3)
[2022-06-12] MEDS ORDERED: PATIENT'S OWN MEDICATION (NON-FORMULARY) (Famotidine 40 MG Tablet) PO SCH (10:00)
[2022-06-12] MEDS ORDERED: AMIODARONE HCL 200 MG TABLET PO SCH (10:00)
[2022-06-12] MEDS ORDERED: PATIENT'S OWN MEDICATION (NON-FORMULARY) (Cyclosporine [Restasis] 1 EACH Droperette) OP SCH (10:00)
[2022-06-12] MEDS ORDERED: FAMOTIDINE 20 MG TABLET PO SCH (10:00)
[2022-06-12] MEDS ORDERED: FLUTICASONE PROP 0.05% 16 GM NASAL SPRAY NS SCH (10:00)
[2022-06-12 12:32] VITALS: BMI 18.9
[2022-06-12] MEDS: MOMETASONE FUROATE 220 MCG/IH INHALER IH SCH ×2 (18:40→22:31)
[2022-06-12] MEDS: NEBIVOLOL 10 MG TABLET (FP) PO SCH ×2 (18:41→22:34)
[2022-06-12] MEDS: APIXABAN 2.5 MG TABLET PO SCH ×2 (18:41→22:34)
[2022-06-12] MEDS: CHOLECALCIFEROL (VIT D3) 1,000 UNIT (25 MCG) TABLET PO SCH ×2 (18:42→18:53)
[2022-06-12] MEDS: LIPASE/PROTEASE/AMYLASE 6,000 UNIT CAPSULE PO SCH ×2 (18:44→18:52)
[2022-06-12] MEDS ORDERED: EPLERENONE 25 MG TABLET PO SCH (18:45)
[2022-06-12] MEDS: VITAMIN B COMP W-C 1 EA TABLET (NEPHRO-VITE) PO SCH ×2 (18:45→18:53)
[2022-06-13] MEDS: TRIMETHOBENZAMIDE HCL 200MG/2ML INJ IM PRN ×2 (01:22→01:29)
[2022-06-13 01:29] VITALS: TEMP 98
[2022-06-13] MEDS: LEVOTHYROXINE NA 100 MCG TABLET (FP) PO SCH (06:02)
[2022-06-13 07:11] VITALS: BP 114/66; PULSE 103; RESP 17
== END 2022-06-13 07:28 | disposition short-term general hospital (02) | DRG 291 ==
LOC: JER 20:59 → JERBED 06-12 01:15 → OBSVTOIN 06-12 01:51 → J4W 06-12 11:17
PROVIDERS: ADMIT Internal Medicine
DX: I11.0 Hypertensive heart disease with heart failure (principal); I50.23 Acute on chronic systolic (congestive) heart failure; I48.0 Paroxysmal atrial fibrillation; I08.1 Rheumatic disorders of both mitral and tricuspid valves; J44.9 Chronic obstructive pulmonary disease, unspecified; E03.9 Hypothyroidism, unspecified; E78.5 Hyperlipidemia, unspecified; I42.0 Dilated cardiomyopathy; K21.9 Gastro-esophageal reflux disease without esophagitis
CPT/HCPCS: 0241U-QW; 36415; 71045-TC-FY; 80048; 80053; 83880; 84443; 84484; 85025; 85610; 85730; 93005; 93010; 99285-25; E0372; G0378